=== PATIENT | female | born 1940 | race Caucasian/White ===

== ENCOUNTER 2016-12-04 08:17 | Day surgery (SDC) | payer MEDICARE ==
[~2016-12-04 08:17] MED LIST: Acetaminophen TAB* 325 MG PO PRN; Buffered Lidocaine 1% SYR 3ML* 3 ML/SYR SYRINGE INTRADERM ONE
[2016-12-04] MEDS ORDERED: fentaNYL* 50 MCG/ML 2 ML VIAL (100 MCG VIAL) ONE (09:04)
[2016-12-04] MEDS ORDERED: Midazolam* 1 MG/ML 2 ML VIAL (2 MG) ONE (09:04)
[2016-12-04] MEDS ORDERED: Propofol* 10 MG/ML 20 ML BTL IV PUSH ONE (09:35)
[2016-12-04 10:04] VITALS: BP 147/83
--- NOTE | 2016-12-04 11:07 | OP ---
DATE OF OPERATION/DATE OF DICTATION: 12/04/2016. DATE OF : 1940. SURGEON: Dr. Nathan Aly. CRNP: None. ANESTHESIA: Topical with intravenous sedation. PRE-OP DIAGNOSIS: Cataract, left eye. POST-OP DIAGNOSIS: Cataract, left eye. OPERATIVE PROCEDURE: Phacoemulsification and cataract extraction with posterior chamber intraocular lens implant, left eye. COMPLICATIONS: None. BLOOD LOSS: None. OPERATIVE FINDINGS: The patient was brought to the operating room and received a small amount of in travenous sedation. A drop of Tetracaine was placed in her left eye. She was prepped and draped in the usual sterile fashion for ophthalmic surgery and attention was directed to the left eye where a speculum was placed. A paracentesis was created at the 5 o'clock position and 0.1 cc of 1 percent preservative-free Lidocaine was injected into the anterior chamber followed by DisCoVisc. The eye w as digitally stabilized while a 2.75 mm keratome was used to create a triplanar clear corneal incisi on at the 3 o'clock position. A continuous curvilinear capsulorrhexis was created with a cystotome and Utrata forceps. BSS on a cannula was used to hydrodissect the lens from the capsule. Phacoemul sification was performed in a [id number] technique to create four fragments which were remov ed. Residual cortical material was removed with irrigation and aspiration. DisCoVisc was used to in flate the capsular bag and an AUOOTO 17.5 diopter lens was folded and inserted into the capsular bag . DisCoVisc was removed using irrigation and aspiration. BSS on a cannula was used to hydrate the corneal stroma and seal the wound. At the end of the case the pupil was round and the lens was cent ered. The eye was of normal pressure and the wound was water tight. The speculum was removed and to pical Maxitrol ointment was placed on the surface of the eye. The eye was closed, patched and shiel ded and the patient was sent to the recovery room in stable condition with post operative instructio ns and follow-up appointment given. [id number]/[facility] #: [id number]
[2016-12-04] MEDS ORDERED: Neomycin/Polymy/Dex OPHTH.OIN* 3.5 GM ONE (11:23)
[2016-12-04] MEDS ORDERED: Lidocaine 1% MPF* 2 ML VIAL ONE (11:23)
[2016-12-04] MEDS ORDERED: Flurbiprofen 0.03% OPTH.SOL* 2.5 ML BTL ONE (11:23)
[2016-12-04] MEDS ORDERED: Tropicamide 1% OPTH.SOL* BTL ONE (11:23)
[2016-12-04] MEDS ORDERED: Tetracaine 0.5% OPTH.SOL 4 ML* 1 DROP BTL ONE (11:23)
[2016-12-04] MEDS ORDERED: Cyclopentolate 1% OPTH.SOL* 2 ML BTL ONE (11:23)
[2016-12-04] MEDS ORDERED: Phenylephrine 2.5% OPTH.SOL* 2 ML BTL ONE (11:23)
== END 2016-12-04 10:12 | disposition home or self-care (01) ==
LOC: OREAST 08:17
PROVIDERS: ATTEND Ophthalmology
DX: H25.12 Age-related nuclear cataract, left eye (principal); I10 Essential (primary) hypertension; M35.3 Polymyalgia rheumatica; K21.9 Gastro-esophageal reflux disease without esophagitis; F34.1 Dysthymic disorder
CPT/HCPCS: A9270-GY; J2250; J2704; J3010; V2632

== ENCOUNTER 2017-09-26 11:01 | Emergency (ER) | payer MEDICARE ==
[2017-09-26] MEDS ORDERED: Ondansetron INJ* 2 MG/ML VIAL IV ONE (11:15)
[2017-09-26] MEDS ORDERED: Morphine INJ* 10 MG/ML 1 ML CARPUJECT IV ONE (11:15)
[2017-09-26 11:54] LABS: ABS Basophils 0.1 10^3/ul (0-0.2); ABS Eosinophils 0.2 10^3/ul (0-0.6); ABS Lymphocytes 2.4 10^3/ul (1.0-4.8); ABS Monocytes 0.7 10^3/ul (0-0.8); ABS Neutrophils 7.2 10^3/ul (1.5-7.7); ABS Nucleated RBC 0 10^3/ul; Eosinophil % 1.6 % (0-6); Hematocrit 43 % (35-47); Hemoglobin 14.7 g/dl (12.0-16.0); Lymphocyte % 22.8 % (25-47); Mean Corpuscular HGB Conc 34 g/dl (31-36); Mean Corpuscular Hemoglobin 32 pg (27-31); Mean Corpuscular Volume 94 fL (80-97); Mean Platelet Volume 8 um3 (7.4-10.4); Nucleated Red Blood Cells % 0; Platelet Count 281 10^3/ul (150-450); Red Blood Count 4.57 10^6/ul (4.0-5.4); Red Cell Distribution Width 16 % (10.5-15); White Blood Count 10.6 10^3/ul (3.5-10.8)
[2017-09-26 12:16] LABS: EGFR Non-African American 60.9 (>60)
[2017-09-26] MEDS ORDERED: fentaNYL* 50 MCG/ML 2 ML VIAL (100 MCG VIAL) IV SLOW PU ONE (12:17)
[2017-09-26] MEDS ORDERED: Morphine INJ* 4 MG/ML 1 ML SYRINGE (NEW SYRINGE VERSION) IV ONE (13:33)
--- NOTE | 2017-09-26 13:44 | RAD ---
Indication: Left leg edema. Duplex Doppler sonography of the deep venous system of the left lower extremity deep venous system was performed. Bilaterally the common femoral veins appear patent and compressible. Left proximal greater saphenous vein, proximal deep femoral vein, femoral vein, popliteal vein, posterior tibial veins and peroneal veins appear patent and compressible. IMPRESSION: NO EVIDENCE OF DEEP VENOUS THROMBOSIS IS IDENTIFIED.
[2017-09-26] MEDS ORDERED: Orphenadrine Citrate IV* 30 MG/ML 2 ML VIAL IV ONE (14:18)
[2017-09-26] MEDS ORDERED: Dexamethasone IV* 4 MG/ML 1 ML (4 MG) IV SLOW PU ONE (14:18)
--- NOTE | 2017-09-26 14:20 | RAD ---
Indication: LEFT hip and low back pain. Comparison: July 27, 2014 MRI. Technique: AP and lateral views lumbar sacral spine. Report: Alignment is anatomic. No cortical disruption or trabecular impaction to indicate a vertebral body fracture. Multilevel mild vertebral endplate osteophytosis. Advanced L1-L2 and L5-S1 disc space narrowing without change. The remaining disc spaces demonstrate only mild narrowing. Diffuse facet joint osteoarthritis most marked at the L2-L3 through L5-S1 levels. Unremarkable soft tissue contours. RIGHT upper quadrant surgical clips and aortoiliac vascular calcifications. RIGHT hip prosthesis. LEFT hip osteoarthritis. IMPRESSION: Degenerative spondylosis and facet joint osteoarthritis without gross significant interval change from the July 27, 2014 MRI.
--- NOTE | 2017-09-26 14:27 | RAD ---
Indication: LEFT hip pain. Post RIGHT hip replacement. Comparison: January 23, 2011 pelvis radiograph. Technique: AP pelvis and AP and frog-leg lateral views LEFT hip. Report: The LEFT hip is normally located. Negative for LEFT hip or pelvis fracture or pelvis joint diastases. Severe osteophytosis and advanced axial joint space narrowing of the LEFT hip with associated reactive subchondral sclerosis. Associated partial loss of femoral head sphericity. Unremarkable appearance of the prosthetic RIGHT hip in the AP projection. Unremarkable soft tissue contours. 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
[2017-09-26 16:08] VITALS: BP 155/92
--- NOTE | 2017-09-27 08:22 | ED ---
Louie Fortune Angela, scribed for Kapil Hernandez MD on 09/26/17 at 1110 . Lower Extremity - HPI Summary HPI Summary: This pt is a 77 y/o female presenting to [facility] c/o left hip pain radiating down her left leg for 1 week. Pt denies any trauma, fall, or heavy lifting. Pt additionally reports she has had left thigh swelling and left foot swelling. She rates her pain 9 out of 10 in severity. She states she has had diaphoresis and chills. Denies chest pain, SOB. PMHx includes back surgery (a couple of years ago) to remove a tumor. - History of Current Complaint Chief Complaint: EDExtremityLower Stated Complaint: LT HIP PAIN Time Seen by Provider: 09/26/17 11:08 Hx Obtained From: Patient Mechanism Of Injury: Other - no trauma or injury Onset of Pain: Days Onset/Duration: Still Present Severity Currently: Severe Pain Intensity: 9 Pain Scale Used: 0-10 Numeric Timing: Constant, Lasting Days Location: Radiates To - left hip radiating down left leg Associated Signs And Symptoms: Positive: Swelling - in left thigh and foot, Other - POS: diaphoresis, chills. NEG: chest pain, SOB.. Negative: Fever Aggravating Factor(s): Movement Alleviating Factor(s): Rest - Allergies/Home Medications Allergies/Adverse Reactions: Allergies Allergy/AdvReac Type Severity Reaction Status Date / Time iodine Allergy Intermediate Rash Verified 09/26/17 12:18 niacin Allergy Intermediate Rash Verified 09/26/17 12:18 Penicillins Allergy Intermediate Hives Verified 09/26/17 12:18 povidone-iodine Allergy Intermediate Rash Verified 09/26/17 12:18 [From Betadine] soap [From Betadine] Allergy Intermediate Rash Verified 09/26/17 12:18 Kquoemq-Inz-Knq Reductase AdvReac Intermediate Muscle Ache Verified 09/26/17 12: 18 Inhibitor PMH/Surg Hx/FS Hx/Imm Hx Endocrine/Hematology History: Denies: Hx Diabetes Cardiovascular History: Reports: Hx Hypertension, Hx Rheumatic Fever - childhood , Other Cardiovascular Problems/Disorders - HX STROKE 2007, HX BLOOD CLOT Denies: Hx Congestive Heart Failure, Hx Pacemaker/ICD GI History: Reports: Hx Gall Bladder Disease - removed 2000, Hx Gastroesophageal Reflux Disease - ON MEDS, Hx Ulcer - STOMACH 20+ YEARS AGO History: Denies: Hx Dialysis, Hx Renal Disease Musculoskeletal History: Reports: Hx Arthritis, Hx Back Problems, Other Musculoskeletal History - fibromyalgia Sensory History: Reports: Hx Cataracts, Hx Contacts or Glasses, Hx Hearing Aid - pt left hearing aides at home, Hx Hearing Problem Opthamlomology History: Reports: Hx Cataracts, Hx Contacts or Glasses Neurological History: Reports: Other Neuro Impairments/Disorders - FIBROMYALGIA Psychiatric History: Denies: Hx Anxiety, Hx Depression, Hx Panic Disorder - Cancer History Cancer Type, Location and Year: Left breast Hx Chemotherapy: No Hx Radiation Therapy: Yes - Surgical History Surgery Procedure, Year, and Place: Lsp surgery 04/2014. Left knee replacement. Right hip replacement. Left breast cancer, surgery x2, one lymph node removed. Perforated ulcer. total hysterectomy Hx Anesthesia Reactions: No - Immunization History Date of Tetanus Vaccine: Up to date Date of Influenza Vaccine: Fall 2011 Infectious Disease History: No Infectious Disease History: Denies: Traveled Outside the [place] in Last 30 Days - Family History Known Family History: Positive: Cardiac Disease Family History: Lupus - Social History Alcohol Use: None Alcohol Amount: 2 DRINKS A YEAR Substance Use Type: Reports: None, Prescribed Smoking Status (MU): Never Smoked Tobacco Review of Systems Positive: Chills, Skin Diaphoresis. Negative: Fever Eyes: Negative ENT: Negative Negative: Chest Pain Negative: Shortness Of Breath Gastrointestinal: Negative Musculoskeletal: Other - left hip pain, left leg pain Positive: Edema - left thigh and left foot All Other Systems Reviewed And Are Negative: Yes Physical Exam - Summary Physical Exam Summary: VITAL SIGNS: Reviewed. GENERAL: Patient is a well-developed and nourished female who is lying comfortable in the stretcher. Patient is not in any acute respiratory distress. HEAD AND FACE: No signs of trauma. No ecchymosis, hematomas or skull depressions. No sinus tenderness. EYES: PERRLA, EOMI x 2, No injected conjunctiva, no nystagmus. EARS: Hearing grossly intact. Ear canals and tympanic membranes are within normal limits. MOUTH: Oropharynx within normal limits. NECK: Supple, trachea is midline, no adenopathy, no JVD, no carotid bruit, no c- spine tenderness, neck with full ROM. CHEST: Symmetric, no tenderness at palpation LUNGS: Clear to auscultation bilaterally. No wheezing or crackles. CVS: Regular rate and rhythm, S1 and S2 present, no murmurs or gallops appreciated. ABDOMEN: Soft, non-tender. No signs of distention. No rebound no guarding, and no masses palpated. Bowel sounds are normal. MSK: no edema, no cyanosis or clubbing. Positive paraspinal tenderness in the lumbar spine. Left hip tenderness with decreased ROM. Positive straight left leg test. There is slight swelling. NEURO: Alert and oriented x 3. No acute neurological deficits. Speech is normal and follows commands. SKIN: Dry and warm Triage Information Reviewed: Yes Vital Signs On Initial Exam: Initial Vitals Temp Pulse Resp BP Pulse Ox 97.4 F 91 22 157/96 95 09/26/17 11:02 09/26/17 11:02 09/26/17 11:02 09/26/17 11:02 09/26/17 11:02 Vital Signs Reviewed: Yes Diagnostics - Vital Signs Vital Signs Temp Pulse Resp BP Pulse Ox 09/26/17 11:02 97.4 F 91 22 157/96 95 - Laboratory Result Diagrams: 09/26/17 11:45 09/26/17 11:45 Lab Statement: Any lab studies that have been ordered have been reviewed, and results considered in the medical decision making process. - Radiology Lumbar spine XR Xray Interpretation: No Acute Changes - IMPRESSION: Degenerative spondylosis and facet joint osteoarthritis without gross significant interval change from the July 27, [address] Hernandez has reviewed this radiology report. 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 Dr. Hernandez has reviewed this radiology report. Radiology Interpretation Completed By: Radiologist - Additional Comments Diagnostic Additional Comments: Venous Doppler Study, Left lower extremity, as read by radiologist: IMPRESSION: No evidence of deep venous thrombosis identified. Dr. Hernandez has reviewed this radiology report. Re-Evaluation - Re-Evaluation First Eval Re-Evaluation Time: 15:48 Change: Improved Comment: Pt reports she is feeling much better. Lower Extremity Course/Dx - Course Assessment/Plan: This pt is a 77 y/o female [facility]/o left hip pain radiating down her left leg for 1 week. Pt denies any trauma, fall, or heavy lifting. Pt additionally reports she has had left thigh swelling and left foot swelling. She rates her pain 9 out of 10 in severity. She states she has had diaphoresis and chills. Denies chest pain, SOB. Test results without any significant abnormality. Ultrasound of left lower extremity reveals no evidence of deep venous thrombosis identified. Ultrasound shows no DVT. Lumbar spine XR and left hip/pelvis XR show no fracture or dislocation. Pt was given a couple doses of Morphine, Fentanyl, Decadron, Norflex and her symptoms significant improved. Pt is ambulating with minimal pain, therefore I believe the pt is dealing with sciatica. She will be discharged to home with follow up from her PCP. Pt was given a prescription for [place], Flexeril, and Medrol. Pt is hemodynamically stable, alert and oriented x3. She is instructed to return to the ED for any worsening symptoms. - Diagnoses Provider Diagnoses: Low back pain, Sciatica Discharge - Discharge Plan Condition: Stable Disposition: HOME Prescriptions: Cyclobenzaprine TAB* [Flexeril 10 MG TAB*] 10 mg PO TID PRN #12 tab PRN Reason: Pain HYDROcodone/ACETAMIN 5-325 MG* [[place] 5-325 TAB*] 1 tab PO Q6H PRN #12 tab MDD 4 tabs PRN Reason: Pain methylPREDNISolone TAB* [Medrol TAB*] 4 - 8 mg PO .SEE ZAIRA #1 zaira Patient Education Materials: Sciatica (ED), Acute Low Back Pain (ED) Referrals: Misha Ibrahim MD [Primary Care Provider] - 3 Days Additional Instructions: Please follow up with your primary care provider. RETURN TO THE ED FOR ANY WORSENING SYMPTOMS. The documentation as recorded by the Louie parker Angela accurately reflects the service I personally performed and the decisions made by , Kapil Hernandez MD.
== END 2017-09-26 16:06 | disposition home or self-care (01) ==
LOC: ED 11:01
DX: M54.5 Low back pain (principal); M54.32 Sciatica, left side; M25.552 Pain in left hip; Z86.79 Personal history of other diseases of the circulatory system; Z87.19 Personal history of other diseases of the digestive system
CPT/HCPCS: 36415; 72100; 80053; 84550; 85025; 86140; 96374; 96375; 99285; J1100; J2270; J2360; J2405; J3010

== ENCOUNTER 2018-01-02 07:37 | Inpatient (IN) | payer MEDICARE ==
--- NOTE | 2017-12-27 21:11 | HP ---
HISTORY AND PHYSICAL: DATE OF SURGERY: 01/02/18 DATE OF OFFICE VISIT: 12/25/17 SURGEON: Binta Alicia MD.* (DICTATED BY CHRIS ARDON) PROCEDURE: Left total hip arthroplasty. CHIEF COMPLAINT: Left hip pain. HISTORY OF PRESENT ILLNESS: Ms. Boucher is a 77-year-old female with complaints of left hip pain. She has failed conservative management and elected to proceed with a left total hip arthroplasty. The surgery is scheduled for 01/02/[address] Alicia. PAST MEDICAL HISTORY: Hypertension, GERD, fibromyalgia, history of breast cancer, osteoarthritis, and history of stroke. PAST SURGICAL HISTORY: Bilateral total knee arthroplasties, right total hip arthroplasty, lumpectomy x2, tumor removal from her spine, hysterectomy, and cholecystectomy. CURRENT MEDICATIONS: 1. Verapamil 240 mg daily. 2. Trazodone 50 mg q.h.s. 3. Omeprazole 40 mg daily. 4. Aspirin 81 mg daily. 5. Indapamide 2.5 mg daily. 6. Spironolactone 25 mg 2 tablets every day. 7. Culturelle. 8. Prednisone mg daily. 9. Naproxen 500 mg twice daily as needed. ALLERGIES: PENICILLIN, STATIN, BETADINE, NIACIN, IODINE, and SURGICAL SCRUB. IODINE and SURGICAL SCRUB causes hives. FAMILY HISTORY: Coronary artery disease, hypertension, breast cancer, rheumatoid arthritis, and lupus. SOCIAL HISTORY: She is a 77-year-old female. She lives alone. She does not smoke or use drugs. Uses occasional alcohol. REVIEW OF SYSTEMS: A complete 14-point of review of systems is reviewed with the patient and is positive for GERD and stroke. She has a history of vomiting with anesthesia. Denies history of DVT, PE, hepatitis, or HIV. PHYSICAL EXAMINATION GENERAL: She is a well developed, well nourished, in no acute distress. VITAL SIGNS: She stands 62 inches tall, weighs 210 pounds. Her blood pressure is 148/80 and her heart rate is 90. HEENT: Normocephalic, atraumatic. NECK: Supple. No palpable lymph nodes. PULMONARY: The lungs are clear to auscultation bilaterally. CARDIO: Regular rate and rhythm. Strong S1, S2. ABDOMEN: Soft, nontender, nondistended. NEUROLOGIC: She is alert and oriented x3. Cranial nerves II through XII are intact. MUSCULOSKELETAL: Left lower extremity, the skin is intact. There are no open wounds or abrasions. She walks with an antalgic-type gait favoring her left hip. She has decreased internal and external rotation of the left hip. 2+ dorsalis pedis pulses. Intact sensation in her lower extremities. Muscle group strengths are intact at 5/5. ASSESSMENT AND PLAN: Ms. Boucher is a 77-year-old female with endstage osteoarthritis of the left hip. She has failed conservative management and elected to proceed with a left total hip arthroplasty. Her surgery is scheduled for 01/02/[address] Alicia discussed the risks and benefits of the surgery at today's visit and all of her questions were answered. She will follow up with Dr. Alicia in 2 weeks after the surgery. CHRIS ARDON [id number]/[facility] #: [id number] [facility]
[~2018-01-02 07:37] MED LIST changes: -Acetaminophen TAB* 325 MG PO PRN; +Buffered Lidocaine 0.9% SYRIN* 5 ML/SYR SYRINGE INTRADERM ONE; -Buffered Lidocaine 1% SYR 3ML* 3 ML/SYR SYRINGE INTRADERM ONE
--- OUTSIDE RECORDS SUMMARY | 2018-01-02 07:44 | XMS REPORT ---
:1940 External Reference #:[id number] Author Organization [facility] Address [address] [address] Phone [phone] Care Team Providers Name Role Phone Misha Ibrahim MD Primary Care Physician Unavailable Payers Type Date Identification Payment Subscriber Numbers Provider Health Maintenance Effective: Policy Number: Medicare Van Vasquez (O) 07/22/2012 [id number] o Group Number: [id number] [address] [address] PayID: [id number] [place] [address] Problems Date Description Provider Status Onset: 07/07/2014 Aftercare Following [facility] Nikita Stevens M.D. Active Musculoskeletal Sys, NEC Onset: 07/19/2014 Thoracic and lumbosacral neuritis Nikita Stevens M.D. Active Onset: 06/21/2015 Essential hypertension Karly Young M.D. Active Onset: 06/21/2015 Pulmonary valve disorder Karly Young M.D. Active Onset: 07/18/2015 Chronic diastolic heart failure Karly Young M.D. Active Onset: 07/18/2015 Polymyalgia rheumatica Karly Young M.D. Active Onset: 11/08/2015 Dyspnea Karly Young M.D. Active Onset: 11/08/2015 Persistent circulation Karly Young M.D. 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 Cigarette Use Never Smoked Cigarettes ETOH Use Rarely consumes alcohol very very rare Smoking Patient has never smoked Recreational Drug Use Denies Drug Use Daily Caffeine Consumes on average 1 cup of regular coffee per day Daily Caffeine Consumes on average 16oz per day Exercise Type/Frequency Exercises sporadically Allergies, Adverse Reactions, Alerts Date Description Reaction Status Severity Comments 12/29/2013 Penicillin Urticaria active 12/29/2013 Statins muscle aches active 12/29/2013 Betadine Urticaria active 12/29/2013 Niacin Urticaria active 06/07/2015 Iodine active 11/25/2017 Surgical Scrub active Medications Medication Date Status Form Strength Qnty SIG Indications Ordering Provider Verapamil HCL ER 10/29/ Active Caps ER 240mg 1 by mouth Unknown 2015 24HR every day Trazodone HCL / Active Tablets 50mg 30tabs 1 tablet Unknown 0000 at bedtime as needed Omeprazole / Active Capsules 40mg 90caps 1 by mouth Unknown 0000 DR every day Aspir-81 / Active Tablets DR 81mg 1 by mouth Unknown 0000 every day Indapamide / Active Tablets 2.5mg 150tab 1 tab by Karly 0000 s mouth Hannah, every day M.D. ( med change decrease per Dr. Ibrahim, started 12/16/15) Spironolactone / Active Tablets 25mg 180tab 2 tablets Karly 0000 s by mouth Peñuelas, every day M.D. Culturelle / Active Capsules once a day Unknown 0000 15 billion cells per capsule Prednisone / Active Tablets 7mg once a day Unknown 0000 Naproxen / Active Tablets 500mg 1 tablet Unknown 0000 with food by mouth twice a day Prednisone 11/10/ Hx Tablets 10mg 45tabs take 5 Karly 2015 - tabs night Peñuelas, 12/05/ prior to M.D. 2016 CT scan, 5 tabs the moring of the CT scan and 5 tabs on arrival to the hospital then as directed Verapamil HCL ER 07/18/ Hx Caps ER 180mg 90caps 1 by mouth Karly 2015 - 24HR every day Hannah, 11/10/ M.D. 2016 Indapamide 07/18/ Hx Tablets 1.25mg 90tabs 1 tab PO q I50.32 Karly 2014 - day with Hannah, 11/07/ 2.5 mg M.D. 2015 tablet Zofran Odt 03/26/ Hx Tablets 4mg 40tabs every 4 to Dirk 2014 - Dispers 6 hours as Elizabeth, 11/06/ needed M.D. 2015 nausea. Pt Not Using. Coumadin 03/25/ Hx Tablets 2mg 60tabs take 1-5 Freddie 2014 - tablets as Elizabeth, 06/20/ directed M.D. 2014 Percocet 03/25/ Hx Tablets 5-325mg 60tabs 1-2 by k 2014 - mouth Elizabeth, 06/20/ every 4 to M.D. 2014 6 hours as needed pain Prednisone / Hx Tablets 5mg 70tabs 1 po bid Unknown 0000 - 2013 Naproxen / Hx Tablets 500mg 30tabs 1 by mouth Unknown 0000 - twice a 01/30/ day as 2015 needed Verapamil HCL ER / Hx Tablets ER 240mg 1 by mouth Unknown 0000 - every day 2014 Aldactone 00/ Hx Tablets 25mg 1 by mouth Unknown 0000 - every day 2014 Cymbalta / Hx Caps DR 30mg 30caps 1 by mouth Unknown 0000 - Part every day 2013 Hydrocodone-Acet / Hx Tablets 5-325mg 1 bid prn Unknown aminophen 0000 - 2013 Aldactone 00/ Hx Tablets 25mg 1 by mouth Unknown 0000 - every day 2015 Medications Administered in Office Medication Date Status Form Strength Qnty SIG Indications Ordering Provider Inj, 06/23/ Administered Injection Bryn Arora Regadenoson, 0.1 2014 Brand, MG Zack.Maite Aminophylline 06/23/ Administered Injection Bryn Arora 2014 Khai Capone Technetium TC 06/23/ Administered Injection Bryn Arora 99M Tetrofosmin, 2014 Brand, Per Unit Dose Up M.D. To 40 Millicuries Triamcinolone 12/29/ Administered Injection Ambrosio (Kenalog) Kassidy Martinez M.D. Vital Signs Date Vital Result Comment 12/25/2017 Height 62.75 inches 5'2.75" Weight 210.00 lb Heart Rate 90 /min BP Systolic Sitting 148 mmHg BP Diastolic Sitting 80 mmHg Respiratory Rate 16 /min Body Temperature 98.0 F Pain Level 5 BMI (Body Mass Index) 37.5 kg/m2 11/25/2017 Height 62.75 inches 5'2.75" Weight 208.00 lb Heart Rate 88 /min BP Systolic 144 mmHg BP Diastolic 84 mmHg Pain Level 8 BMI (Body Mass Index) 37.1 kg/m2 05/20/2017 Height 63.5 inches 5'3.50" Weight 214.00 lb BP Systolic 116 mmHg BP Diastolic 78 mmHg Respiratory Rate 20 /min Body Temperature 98.1 F Pain Level 5 BMI (Body Mass Index) 37.3 kg/m2 12/22/2015 Height 63.5 inches 5'3.50" Weight 214.00 lb with shoes Heart Rate 90 /min BP Systolic Sitting 120 mmHg Ra lg cuff BP Diastolic Sitting 86 mmHg Ra lg cuff Respiratory Rate 17 /min BMI (Body Mass Index) 37.3 kg/m2 Ejection Fraction 55-60% date 11/28/15 ECHO 12/07/2015 Height 63.5 inches 5'3.50" Weight 213.00 lb with shoes Heart Rate 92 /min BP Systolic Sitting 122 mmHg Ra lrg cuff BP Diastolic Sitting 80 mmHg Ra lrg cuff BP Systolic Standing 126 mmHg Ra lrg cuff BP Diastolic Standing 80 mmHg Ra lrg cuff BMI (Body Mass Index) 37.1 kg/m2 Ejection Fraction 55% - 60% 11/28/15 echo 11/17/2015 Height 63.5 inches 5'3.50" Weight 213.00 lb h shoes Heart Rate 78 /min BP Systolic Sitting 142 mmHg Ra lrg cuff BP Diastolic Sitting 86 mmHg Ra lrg cuff BP Systolic Standing 140 mmHg Ra lrg cuff BP Diastolic Standing 88 mmHg Ra lrg cuff Respiratory Rate 18 /min BMI (Body Mass Index) 37.1 kg/m2 Ejection Fraction 45-50% 07/06/15 11/08/2015 Height 63.5 inches 5'3.50" Weight 214.31 lb with shoes Heart Rate 66 /min 82 at rest, 104 w/ exercise BP Systolic Sitting 138 mmHg Ra lrg cuff BP Diastolic Sitting 82 mmHg Ra lrg cuff BP Systolic Standing 142 mmHg Ra lrg cuff BP Diastolic Standing 88 mmHg Ra lrg cuff Respiratory Rate 16 /min O2 % BldC Oximetry 93 % on Ra at rest, 95% on Ra w/ exercise BMI (Body Mass Index) 37.4 kg/m2 Ejection Fraction focused 07/06/15 07/18/2015 Height 63.5 inches 5'3.50" Weight 208.00 lb with shoes Heart Rate 82 /min BP Systolic Sitting 132 mmHg Ra, reg cuff BP Diastolic Sitting 84 mmHg Ra, reg cuff BP Systolic Standing 130 mmHg Ra BP Diastolic Standing 84 mmHg Ra Respiratory Rate 16 /min BMI (Body Mass Index) 36.3 kg/m2 Ejection Fraction 45-50% 05/06/15 06/21/2015 Height 63.5 inches 5'3.50" Weight 208.31 lb with shoes Heart Rate 84 /min BP Systolic Sitting 132 mmHg Ra, Lg cuff BP Diastolic Sitting 84 mmHg Ra, Lg cuff BP Systolic Standing 126 mmHg Ra BP Diastolic Standing 86 mmHg Ra Respiratory Rate 16 /min BMI (Body Mass Index) 36.3 kg/m2 Ejection Fraction 45-50% 05/06/15 04/27/2015 Height 96.8 inches 8'0.80" Weight 197.00 lb Body Temperature 96.8 F BMI (Body Mass Index) 14.8 kg/m2 03/02/2015 Height 63.5 inches 5'3.50" Weight 201.00 lb Heart Rate 100 /min BP Systolic Sitting 152 mmHg BP Diastolic Sitting 98 mmHg Respiratory Rate 18 /min Pain Level 6 BMI (Body Mass Index) 35.0 kg/m2 08/04/2014 Height 63.5 inches 5'3.50" Weight 201.00 lb Heart Rate 76 /min BP Systolic Sitting 124 mmHg BP Diastolic Sitting 80 mmHg Pain Level 6 back BMI (Body Mass Index) 35.0 kg/m2 07/19/2014 Height 63.5 inches 5'3.50" Weight 202.00 lb Heart Rate 76 /min BP Systolic Sitting 122 mmHg BP Diastolic Sitting 80 mmHg Pain Level 5 back BMI (Body Mass Index) 35.2 kg/m2 07/07/2014 Height 63.5 inches 5'3.50" Weight 202.00 lb Heart Rate 66 /min BP Systolic Sitting 146 mmHg BP Diastolic Sitting 92 mmHg Pain Level 4 back BMI (Body Mass Index) 35.2 kg/m2 05/27/2014 Height 63.5 inches 5'3.50" Weight 199.00 lb Heart Rate 80 /min BP Systolic Sitting 110 mmHg BP Diastolic Sitting 80 mmHg Pain Level 2 back BMI (Body Mass Index) 34.7 kg/m2 05/06/2014 Height 63.5 inches 5'3.50" Weight 196.00 lb Heart Rate 84 /min BP Systolic Sitting 130 mmHg BP Diastolic Sitting 86 mmHg Body Temperature 98.1 F BMI (Body Mass Index) 34.2 kg/m2 04/22/2014 Height 63.5 inches 5'3.50" Weight 200.00 lb Heart Rate 72 /min BP Systolic Sitting 170 mmHg BP Diastolic Sitting 98 mmHg Pain Level 9 back& r leg BMI (Body Mass Index) 34.9 kg/m2 02/01/2014 Height 63.5 inches 5'3.50" Weight 200.50 lb Heart Rate 74 /min BP Systolic Sitting 140 mmHg BP Diastolic Sitting 80 mmHg BMI (Body Mass Index) 35.0 kg/m2 12/29/2013 Height 63.5 inches 5'3.50" Weight 199.00 lb Heart Rate 82 /min BP Systolic Sitting 138 mmHg BP Diastolic Sitting 80 mmHg BMI (Body Mass Index) 34.7 kg/m2 Results Test Date Test Result H/L Range Note Arterial Blood Gas 12/12/2015 PH Arterial 7.47 High 7.35-7.45 1 Pco2 Arterial 39 mmHg 35-45 1 Po2 Arterial 36 mmHg Low 80-100 1, 2 O2 Saturation Arterial 75.7 % Low 95-98 1 Base Excess Arterial 4.5 High -2.0-2.0 1, 3 Hco3 Arterial 27.8 mmol/L 1 Arterial Blood Gas 12/12/2015 PH Arterial 7.44 7.35-7.45 Pco2 Arterial 42 mmHg 35-45 Po2 Arterial 38 mmHg Low 80-100 4 O2 Saturation Arterial 78.2 % Low 95-98 Base Excess Arterial 3.9 High -2.0-2.0 5 Hco3 Arterial 27.3 mmol/L Arterial Blood Gas 12/12/2015 PH Arterial 7.51 High 7.35-7.45 6 Pco2 Arterial 36 mmHg 35-45 6 Po2 Arterial 77 mmHg Low 80-100 6 O2 Saturation Arterial 97.3 % 95-98 6 Base Excess Arterial 5.6 High -2.0-2.0 6, 7 Hco3 Arterial 29.2 mmol/L 6 Inr/Protime 12/07/2015 Inr 0.99 0.89-1.11 Laboratory test finding 12/07/2015 Partial Thrombo Time 32.9 seconds 26.0 -36.3 PTT CBC Auto Diff 12/07/2015 White Blood Count 12.9 10^3/uL High 3.5-10.8 Red Blood Count 4.64 10^6/uL 4.0-5.4 Hemoglobin 14.2 g/dL 12.0-16.0 Hematocrit 43 % 35-47 Mean Corpuscular Volume 93 fL 80-97 Mean Corpuscular Hemoglobin 31 pg 27-31 Mean Corpuscular HGB Conc 33 g/dL 31-36 Red Cell Distribution Width 17 % High 10.5-15 Platelet Count 313 10^3/uL 150-450 Mean Platelet Volume 8 um3 7.4-10.4 Abs Neutrophils 11.3 10^3/uL High 1.5-7.7 Abs Lymphocytes 1.0 10^3/uL 1.0-4.8 Abs Monocytes 0.5 10^3/uL 0-0.8 Abs Eosinophils 0 10^3/uL 0-0.6 Abs Basophils 0.1 10^3/uL 0-0.2 Abs Nucleated RBC 0.01 10^3/uL Granulocyte % 87.7 % High 38-83 Lymphocyte % 7.9 % Low 25-47 Monocyte % 3.7 % 1-9 Eosinophil % 0.1 % 0-6 Basophil % 0.6 % 0-2 Nucleated Red Blood Cells % 0.1 Comp Metabolic Panel 11/16/2015 Sodium 137 mmol/L 133-145 Potassium 3.9 mmol/L 3.5-5.0 Chloride 97 mmol/L Low 101-111 Co2 Carbon Dioxide 29 mmol/L 22-32 Anion Gap 11 mmol/L 2-11 Glucose 146 mg/dL High 70-100 Blood Urea Nitrogen 23 mg/dL 6-24 Creatinine 0.83 mg/dL 0.51-0.95 BUN/Creatinine Ratio 27.7 High 8-20 Calcium 10.7 mg/dL High 8.6-10.3 Total Protein 7.2 g/dL 6.4-8.9 Albumin 4.7 g/dL 3.2-5.2 Globulin 2.5 g/dL 2-4 Albumin/Globulin Ratio 1.9 1-3 Total Bilirubin 0.50 mg/dL 0.2-1.0 Alkaline Phosphatase 82 U/L 34-104 Alt 11 U/L 7-52 Ast 12 U/L Low 13-39 Egfr Non- 67.2 >60 Egfr 86.4 >60 8 Laboratory test 11/16/2015 D Dimer Quantitative 625 ng/mL High Less Than 230 9 finding B-Type Natriuretic Peptide BNP 19 pg/mL 10 Laboratory test finding 11/14/2015 B-Type Natriuretic Peptide <pending&gt ; BNP D Dimer Quantitative <pending> CBC No Diff 03/15/2015 White Blood Count 14.1 10^3/uL High 4.8-10.8 11 Red Blood Count 4.68 10^6/uL 4.0-5.4 11 Hemoglobin 15.1 g/dL 12.0-16.0 11 Hematocrit 46 % 35-47 11 Mean Corpuscular Volume 98 fL High 80-97 11 Mean Corpuscular Hemoglobin 32 pg High 27-31 11 Mean Corpuscular HGB Conc 33 g/dL 31-36 11 Red Cell Distribution Width 14 % 10.5-15 11 Platelet Count 318 10^3/uL 150-450 11 Mean Platelet Volume 7 um3 Low 7.4-10.4 11 Urinalysis Profile 03/15/2015 Urine Color Yellow 11 Urine Appearance Clear 11 Urine Specific [place] 1.021 1.010-1.030 11 Urine pH 5.0 5-9 11 Urine Urobilinogen Negative Negative 11 Urine Ketones Negative Negative 11 Urine Protein Negative Negative 11 Urine Leukocytes Negative Negative 11 Urine Blood Negative Negative 11 Urine Nitrite Negative Negative 11 Urine Bilirubin Negative Negative 11 Urine Glucose Negative Negative 11 Inr/Protime 03/15/2015 Inr 0.97 0.78-1.07 11 Laboratory test finding 03/15/2015 Partial Thrombo 33.8 seconds 26.0- 36.3 11, 12 Time PTT Basic Metabolic Panel 03/15/2015 Sodium 139 mmol/L 133-145 11 Potassium 3.6 mmol/L 3.5-5.0 11 Chloride 96 mmol/L Low 101-111 11 Co2 Carbon Dioxide 32 mmol/L 22-32 11 Anion Gap 11 mmol/L 2-11 11 Glucose 94 mg/dL 70-100 11 Blood Urea Nitrogen 20 mg/dL 6-24 11 Creatinine 0.83 mg/dL 0.51-0.95 11 BUN/Creatinine Ratio 24.1 High 8-20 11 Calcium 10.2 mg/dL 8.6-10.3 11 Egfr Non- 67.4 >60 11 Egfr 86.7 >60 11, 13 Type & Screen 03/15/2015 Patient Blood Type O Positive 11 Antibody Screen NEGATIVE 11 Laboratory test 03/15/2015 Urine Culture And SEE RESULT 11, 14 finding Sensitivities BELOW Creatinine 07/27/2014 Creatinine 0.83 mg/dL 0.51-0.95 Egfr Non- 67.6 >60 Egfr 86.9 >60 15 Laboratory test finding 07/27/2014 Blood Urea Nitrogen 21 mg/dL 6-24 Laboratory test finding 07/09/2014 Erythrocyte Sed Rate 25 mm/Hr 0-40 CBC Auto Diff 07/09/2014 White Blood Count 7.9 10^3/uL 4.8-10.8 Red Blood Count 4.71 10^6/uL 4.0-5.4 Hemoglobin 15.1 g/dL 12.0-16.0 Hematocrit 45 % 35-47 Mean Corpuscular Volume 96 fL 80-97 Mean Corpuscular Hemoglobin 32 pg High 27-31 Mean Corpuscular HGB Conc 33 g/dL 31-36 Red Cell Distribution Width 14 % 10.5-15 Platelet Count 302 10^3/uL 150-450 Mean Platelet Volume 8 um3 7.4-10.4 Abs Neutrophils 5.0 10^3/uL 1.5-7.7 Abs Lymphocytes 1.9 10^3/uL 1.0-4.8 Abs Monocytes 0.6 10^3/uL 0-0.8 Abs Eosinophils 0.2 10^3/uL 0-0.6 Abs Basophils 0.1 10^3/uL 0-0.2 Abs Nucleated RBC 0 10^3/uL Granulocyte % 63.4 % 38-83 Lymphocyte % 24.5 % Low 25-47 Monocyte % 7.9 % 1-9 Eosinophil % 3.1 % 0-6 Basophil % 1.1 % 0-2 Nucleated Red Blood Cells % 0 Basic Metabolic Panel 04/26/2014 Sodium 132 mmol/L Low 133-145 Potassium 4.3 mmol/L 3.7-5.6 Chloride 95 mmol/L Low 101-111 Co2 Carbon Dioxide 31 mmol/L 22-32 Anion Gap 6 mmol/L 2-11 Glucose 102 mg/dL High 70-100 Blood Urea Nitrogen 28 mg/dL High 6-24 Creatinine 0.79 mg/dL 0.51-0.95 BUN/Creatinine Ratio 35.4 High 8-20 Calcium 9.8 mg/dL 8.6-10.3 Egfr Non- 71.5 >60 Egfr 92.0 >60 16 CBC No Diff 04/26/2014 White Blood Count 11.6 10^3/uL High 4.8-10.8 Red Blood Count 4.39 10^6/uL 4.0-5.4 Hemoglobin 14.4 g/dL 12.0-16.0 Hematocrit 43 % 35-47 Mean Corpuscular Volume 97 fL 80-97 Mean Corpuscular Hemoglobin 33 pg High 27-31 Mean Corpuscular HGB Conc 34 g/dL 31-36 Red Cell Distribution Width 14 % 10.5-15 Platelet Count 267 10^3/uL 150-450 Mean Platelet Volume 7 um3 Low 7.4-10.4 Type And Screen (Pre-Adm) 01/12/2011 Patient Blood Type O POSITIVE 17 Antibody Screen NEGATIVE 17 Specimen Discard Date 01/26/2011 17, 18 Urinalysis 01/12/2011 Ua Color YELLOW Yellow 17 Appearance-Urine CLEAR Clear 17 Specific [place]-Ur 1.008 Low 1.010-1.030 17 Esterase-Urine NEGATIVE Negative 17 Nitrite NEGATIVE Negative 17 Hktovsresjgj-Gk-HEI NEGATIVE Negative 17 Protein-Urine NEGATIVE Negative 17 PH-Urine 6.0 5-9 17 Blood-Urine NEGATIVE Negative 17 Ketones-Urine NEGATIVE Negative 17 Bilirubin-Ur NEGATIVE Negative 17 Glucose-Urine NEGATIVE Negative 17 Basic Metabolic Panel 01/12/2011 Sodium 138 mmol/L 135-145 17 Potassium 4.0 mmol/L 3.5-5.0 17 Chloride 99 mmol/L Low 101-111 17 Co2 (Carbon Dioxide) 28.0 mmol/L 22-32 17 Anion Gap 11.0 mmol/L 2-11 17, 19 Glucose 90 mg/dL 70-100 17 BUN 18 mg/dL 6-24 17 Creatinine 0.79 mg/dL 0.50-1.40 17 One Over Creatinine 1.20 17 BUN/Creatinine Ratio 22.8 High 8-20 17 Calcium 10.5 mg/dL High 8.1-9.9 17 eGFR Non- 72.2 > 60 17 eGFR 92.8 > 60 17, 20 Laboratory test finding 01/12/2011 PTT (Aptt) 33.5 25.15-38.53 17 Protime 01/12/2011 Inr 1.02 0.82-1.17 17, 21 Protime 12.1 SEC 10.2-14.8 17, 22 CBC Auto Diff 01/12/2011 White Blood Count 11.8 CUMM High 4.8-10.8 17 Red Cell Count 4.58 CUMM 4.2-5.4 17 Hemoglobin 14.7 g/dL 12.0-16.0 17 Hematocrit 44 % 35-47 17 Mean Corpuscular Volume 96 um3 79-97 17 Mean Corpuscular Hemoglob 32 pg High 27-31 17 Mean Corpuscular HGB [place]one 33 g/dL 32-36 17 Redcell Distribution WDTH 14 % 10.5-15 17 Platelet Count 360 CUMM 150-450 17 Mean Platelet Volume 7.7 um3 7.4-10.4 17 Gran % 69.4 % 38-83 17 Lymph % 24.0 % Low 25-47 17 Mononuclear % 5.2 % 1-9 17 Eosinophil % 0.8 % 0-6 17 Basophil % 0.6 % 0-2 17 Abs Lymphs 2.8 1.0-4.8 17 Abs Mononuclear 0.6 0-0.8 17 Absolute Neutrophil Count 8.2 High 1.5-7.7 17 Abs Eosinophils 0.1 0-0.6 17 Abs Basophils 0.1 0-0.2 17 1 Comment: AORTA 2 Verbal to [id number] by [email or web address] at 1204 on 12/12/15. Results read back accurately. 3 Reference ranges based on room air. 4 Verbal to [id number] by [email or web address] at 1217 on 12/12/15. Results read back accurately. 5 Reference ranges based on room air. 6 AO 7 Reference ranges based on room air. 8 Because ethnic data is not always readily available, this report includes an eGFR for both -Americans and non- Americans. The National Kidney Disease Education Program (NKDEP) does not endorse the use of the MDRD equation for patients that are not between the ages of 18 and 70, are , have extremes of body size, muscle mass, or nutritional status, or are non- or non-. According to the National Kidney Foundation, irrespective of diagnosis, the stage of the disease is based on the level of kidney function: Stage Description GFR(mL/min/1.73 m(2)) 1 Kidney damage with normal or decreased GFR 90 2 Kidney damage with mild decrease in GFR 60-89 3 Moderate decrease in GFR 30-59 4 Severe decrease in GFR 15-29 5 Kidney failure <15 (or dialysis) 9 Please note: The following may produce a false positive D Dimer test: - Rheumatoid factor greater than 60 IU/ml - Plasma hemoglobin greater than 0.05 gm/dl - Bilirubin greater than 50 mg/dl - Lipids greater than 1000 mg/dl - FDP greater than 20 ug/ml 10 >100 to <200 pg/mL: likely compensated congestive heart failure (CHF) 200 to 400 pg/mL: likely moderate CHF >400 pg/mL: likely moderate to severe CHF 11 AA 03/22/15 12 AA 03/22/15 13 Because ethnic data is not always readily available, this report includes an eGFR for both -Americans and non- Americans. The National Kidney Disease Education Program (NKDEP) does not endorse the use of the MDRD equation for patients that are not between the ages of 18 and 70, are , have extremes of body size, muscle mass, or nutritional status, or are non- or non-. According to the National Kidney Foundation, irrespective of diagnosis, the stage of the disease is based on the level of kidney function: Stage Description GFR(mL/min/1.73 m(2)) 1 Kidney damage with normal or decreased GFR 90 2 Kidney damage with mild decrease in GFR 60-89 3 Moderate decrease in GFR 30-59 4 Severe decrease in GFR 15-29 5 Kidney failure <15 (or dialysis) 14 SEE RESULT BELOW Name: ZINA BOUCHER : [address]: Freddie Johnson MD Acct: [id number] Unit: [id number] AGE: 74 Location: [facility] Re03/15/15 SEX: F Status: REG REF SPEC: [id number] ZHANE: 03/15/15-[address]: Freddie Johnson MD REQ: [id number] RECD: 03/15/15 STATUS: LUCILLE KRUGER DR: Misha Ibrahim MD _ SOURCE: URINE SPDESC: ORDERED: Urine Culture Procedure Result Verified Site Urine Culture Final 03/17/15- 1100 ML Organism 1 NORMAL ANDRES [place] Count 25-50,000 (Moderate) CFU/ML * ML - MAIN LAB (PSC1) . END OF REPORT * ML=Testing performed at Main Lab DEPARTMENT OF PATHOLOGY, [address] [place] [address] Fabian Rooney M.D. Director [facility] # [id number] 15 Because ethnic data is not always readily available, this report includes an eGFR for both -Americans and non- Americans. The National Kidney Disease Education Program (NKDEP) does not endorse the use of the MDRD equation for patients that are not between the ages of 18 and 70, are , have extremes of body size, muscle mass, or nutritional status, or are non- or non-. According to the National Kidney Foundation, irrespective of diagnosis, the stage of the disease is based on the level of kidney function: Stage Description GFR(mL/min/1.73 m(2)) 1 Kidney damage with normal or decreased GFR 90 2 Kidney damage with mild decrease in GFR 60-89 3 Moderate decrease in GFR 30-59 4 Severe decrease in GFR 15-29 5 Kidney failure <15 (or dialysis) 16 Because ethnic data is not always readily available, this report includes an eGFR for both -Americans and non- Americans. The National Kidney Disease Education Program (NKDEP) does not endorse the use of the MDRD equation for patients that are not between the ages of 18 and 70, are , have extremes of body size, muscle mass, or nutritional status, or are non- or non-. According to the National Kidney Foundation, irrespective of diagnosis, the stage of the disease is based on the level of kidney function: Stage Description GFR(mL/min/1.73 m(2)) 1 Kidney damage with normal or decreased GFR 90 2 Kidney damage with mild decrease in GFR 60-89 3 Moderate decrease in GFR 30-59 4 Severe decrease in GFR 15-29 5 Kidney failure <15 (or dialysis) 17 AA 01/23/11 18 PREADMISSION TESTING SAMPLES FOR BLOOD BANK WILL BE HELD FOR 14 DAYS FROM THE DATE OF COLLECTION *IF* THE FOLLOWING CRITERIA ARE MET: 1) THE PATIENT HAS *NOT* BEEN IN THE LAST 3 MONTHS. 2) THE PATIENT HAS *NOT* BEEN TRANSFUSED IN THE LAST 3 MONTHS. PREADMISSION TESTING SAMPLES WILL *NOT* BE HELD FOR 14 DAYS FROM PATIENTS WHO IN THE LAST 3 MONTHS: 1) HAVE BEEN 2) HAVE BEEN TRANSFUSED THESE PATIENTS *MUST* BE COLLECTED WITHIN 3 DAYS OF THE SURGERY DATE. 19 Anion gap measurement may be of limited value in the presence of any alkalosis, especially in a combined acid base disorder. . 20 Because ethnic data is not always readily available, this report includes an eGFR for both -Americans and non- Americans. The National Kidney Disease Education Program (NKDEP) does not endorse the use of the MDRD equation for patients that are not between the ages of 18 and 70, are , have extremes of body size, muscle mass, or nutritional status, or are non- or non-. According to the National Kidney Foundation, irrespective of diagnosis, the stage of the disease is based on the level of kidney function: Stage Description GFR(mL/min/1.73 m(2)) 1 Kidney damage with normal or decreased GFR 90 2 Kidney damage with mild decrease in GFR 60-89 3 Moderate decrease in GFR 30-59 4 Severe decrease in GFR 15-29 5 Kidney failure <15 (or dialysis) 21 Recommended INR for Patients on Oral Anticoagulants Prophylaxis 2.0 - 3.0 Treatment of thrombosis 2.0 - 3.0 Prevention of embolism 2.0 - 3.0 Prevention of embolism from prosthetic heart valves 2.5 - 3.5 22 DIAGNOSIS,TREATMENT,AND THERAPY MUST BE BASED ON THE INR VALUE ALONE. Procedures Date CPT Code Description Status 12/12/2015 17963 RT & lt Cath W/Injx HRT Art&L Ventr Img S&I Completed 12/07/2015 93706 EKG Tracing & Interpretation Completed 11/28/2015 50673 ECHO Transthoracic, Real-Time 2D With Doppler And Color Completed Flow 07/06/2015 00294 Echocardiogram, Limited Study Completed 06/23/2015 78996 Stress Test Completed 06/23/2015 51595 Myocardial Perfusion Imaging Tomographic (Spect) Completed Multiple Studies 06/21/2015 19945 EKG Tracing & Interpretation Completed 05/06/2015 08679 ECHO Transthorasic Realtime 2D W Doppler & Color Completed Flow Hosp 03/22/2015 62903 TKR Total Knee Replacement Completed 03/22/2015 42862 TKR Total Knee Replacement Completed 03/15/2015 01048 EKG, Interpretation Only Completed 04/27/2014 61936 Use Of Operating Microscope Completed 04/27/2014 12565 Laminectomy;For Intraspinal Lesion/Lumbar Completed 12/29/2013 58602 Inject/Drain Joint/Bursa Major Completed 03/18/2013 32491 Rad Exam; Pelvis Completed 03/18/2013 33513 Rad Exam; Knee, Ap&L Completed 03/18/2013 37964 Xray Knee 3 Views Completed 10/03/2011 23897 Rad Exam; Hip Unilat Completed 10/03/2011 36915 Rad Exam; Pelvis Completed 03/12/2011 71216 Rad Exam; Hip Unilat Completed 03/12/2011 31593 Rad Exam; Pelvis Completed 01/23/2011 10194 THR Total Hip Replacement Completed 01/23/2011 15683 THR Total Hip Replacement Completed 11/06/2010 73903 Rad Exam; Pelvis Completed 11/06/2010 17286 Rad Exam; Hip Unilat Completed 11/06/2010 23087 Rad Exam; Knee, Ap&L Completed 11/06/2010 41847 Xray Knee 3 Views Completed 03/08/2010 98822 Rad Exam; Knee, Ap&L Completed 11/28/2009 14006 Xray Knee 3 Views Completed 11/28/2009 72604 Rad Exam; Knee, Ap&L Completed 10/25/2009 43055 TKR Total Knee Replacement Completed 10/25/2009 10361 TKR Total Knee Replacement Completed 07/20/2009 31794 Rad Exam; Knee Comp Completed Encounters Type Date Location Provider CPT E/M Dx Office Visit 11/25/2017 [facility] Alicia M.D. 96763 M16.12 1:30p Lamin M25.552 Office Visit 05/20/2017 2:00p [facility] Johnson M.D. 91611 Z96.652 CPranay M70.862 Office Visit 12/22/2015 12:15p [facility] Bryn Capone, 27355 R06.02 Byron Ridley I37.1 Office Visit 12/07/2015 1:15p [facility] Karly Young M.D. 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 71195 R06.02 Water Tanker Driver I50.32 M35.3 P29.3 I37.1 Office Visit 07/18/2015 11:30a [facility] Young M.D. 58621 I50.32 Water Tanker Driver I37.8 M35.3 R06.02 Office Visit 06/21/2015 2:00p [facility] Young M.D. 68914 R06.02 Water Tanker Driver I10 I37.8 I42.9 P29.3 R94.31 Office Visit 05/07/2015 11:00a [facility] Iwona Adrian, 24310 R07.9 Hospitalists D.ODaniel R06.02 I10 K21.9 Office Visit 05/05/2015 10:59a [facility] [place], [address] R07.2 Assoc,pc Hospitalists Khai R06.02 I10 K21.9 Office Visit 03/25/2015 2:59p [facility] Patti Hernandez, N.P. 00101 725 Hospitalists 401.9 V12.54 V43.65 Office Visit 03/24/2015 2:58p [facility] Patti Hernandez N.P. 16627 725 Hospitalists 401.9 V12.54 V43.65 Office Visit 03/23/2015 2:58p [facility], Sariah Herring, MEDICAL CLERICAL ASSISTANT 88892 725 Hospitalists 401.9 V43.65 V12.54 Office Visit 03/22/2015 2:56p [facility], Kirstenrolando Fernandes, 27043 725 Hospitalists N.P. 715.96 401.9 V12.54 V43.65 Office Visit 03/02/2015 2:00p [facility] M.D. 04307 715.96 Lamin Office Visit 08/04/2014 11:00a [facility] Nikita Stevens 91085 724.4 Of [facility] M.Maite Office Visit 04/22/2014 1:15p [facility] Nikita Stevens 32108 727.40 Of Byron MVon Office Visit 02/01/2014 10:00a [facility] Ambrosio Martinez M.D. 29731 729.1 Of [facility] Office Visit 12/29/2013 9:00a [facility] Ambrosio Martinez M.D. 82671 729.1 Of [facility] 296.32 726.5 Office Visit 04/15/2013 11:45a [facility] Abdirahman Martinez 75975 721.3 Of Lamin Bullard R.P.A.-C Office Visit 03/18/2013 10:15a [facility] Johnson M.D. 95320 722.93 Of Lamin 715.95 716.96 724.4 Office Visit 10/03/2011 3:45p [facility] M.D. 75718 715.95 Lamin 722.93 Office Visit 01/12/2011 9:30a [facility] Abdirahman Martinez 25710 715.95 Of Lamin Bullard R.P.A.-C Office Visit 12/04/2010 4:15p [facility] Johnson M.D. 57978 715.95 Of Lamin Office Visit 11/06/2010 2:00p [facility] M.D. 96342 715.96 Of C.M.ADaniel 715.95 Office Visit 10/26/2009 [facility], 56241 300.00 jodie [facility] Hospitalists Khai 789.00 Office Visit 09/19/2009 10:30a [facility] M.D. 62898 715.96 C.M.ADaniel Office Visit 07/20/2009 1:45p [facility] M.D. 51405 716.96 C.M.A. Plan of Care Future Appointment(s):01/13/2018 10:45 am - Binta Alicia M.D. at [facility]01/02/2018 10:30 am - Dorian Khan PA-C at [facility]01/02/2018 10:30 am - CHRIS Leigh at [facility]01/02/2018 10:30 am - Binta Alicia M.D. at [facility]12/25/2017 - Binta Alicia M.D.M16.12 Unilateral primary osteoarthritis, left hipFollow up:Follow up: 2 weeks after ptdvvvxS83.552 Pain in left hip
[2018-01-02] MEDS ORDERED: Clindamycin 900 MG IVPREMIX(* 900 MG/50 ML SDV IV ONE (07:49)
[2018-01-02] MEDS ORDERED: Morphine PF AMP (0.5MG/ML)* 5 MG/10 ML AMP ONE (08:22)
[2018-01-02] MEDS ORDERED: Midazolam* 1 MG/ML 5 ML VIAL (5 MG) ONE (08:22)
[2018-01-02] MEDS ORDERED: fentaNYL* 50 MCG/ML 2 ML VIAL (100 MCG VIAL) ONE ×2 (08:22→10:23)
[2018-01-02] MEDS ORDERED: Bupivacaine 0.5% SDV PF* 30ML VIAL ONE (09:28)
[2018-01-02] MEDS ORDERED: Succinylcholine* 20 MG/ML 10 ML VIAL ONE (09:45)
[2018-01-02] MEDS ORDERED: Propofol* 10 MG/ML 20 ML BTL IV PUSH ONE (09:45)
[2018-01-02] MEDS ORDERED: Lidocaine 2% PF * 5 ML VIAL ONE (09:45)
[2018-01-02] MEDS ORDERED: Ondansetron SYRINGE* 4 MG/2 ML SYRINGE (from 40mg/20ml vial) IV ONE (10:00)
[2018-01-02] MEDS ORDERED: Dexamethasone IV* 4 MG/ML 1 ML (4 MG) ONE (10:27)
[2018-01-02] MEDS ORDERED: fentaNYL* 50 MCG/ML 2 ML VIAL (100 MCG VIAL) IV PRN (12:06)
[2018-01-02] MEDS ORDERED: PROCHLORPERAZINE INJ 5 MG/ML 2 ML VIAL IV PRN (12:06)
[2018-01-02] MEDS ORDERED: Acetaminophen TAB* 325 MG PO PRN ×2 (12:06→12:08)
[2018-01-02] MEDS ORDERED: Ibuprofen TAB* 600 MG PO PRN (12:06)
[2018-01-02] MEDS ORDERED: Metoclopramide IV* 5 MG/ML 2 ML VIAL IV PRN (12:06)
[2018-01-02] MEDS ORDERED: Naloxone* 0.4 MG/ML 1 ML VIAL IV PRN (12:06)
[2018-01-02] MEDS ORDERED: diPHENhydraMINE IV* 50 MG/ML 1 ml VIAL (BENADRYL) IV PRN (12:08)
[2018-01-02] MEDS ORDERED: Ondansetron TAB* 4 MG PO PRN (12:08)
[2018-01-02] MEDS ORDERED: oxyCODONE TAB* 5 MG TAB PO PRN (12:08)
[2018-01-02] MEDS ORDERED: Morphine VIAL* 4 MG/ML VIAL (1 ml vial) IV PRN (12:08)
[2018-01-02] MEDS ORDERED: Cyclobenzaprine TAB* 10 MG PO PRN (12:08)
[2018-01-02] MEDS ORDERED: Magnesium Hydroxide LIQ* 30 ML UDC PO PRN (12:08)
[2018-01-02] MEDS ORDERED: Bisacodyl SUPP* 10 MG SUPP PR PRN (12:08)
[2018-01-02] MEDS ORDERED: HYDROmorphone INJ* 2 MG/ML CARPUJECT SYRINGE ONE (12:36)
[2018-01-02] MEDS: HYDROmorphone INJ* 1 MG/ML CARPUJECT SYRINGE IV PRN ×2 (12:38→13:31)
--- NOTE | 2018-01-02 12:52 | RAD ---
INDICATION: Left hip arthroplasty COMPARISON: Left hip 3 2017 TECHNIQUE: An AP view of the pelvis and AP views of the hip in neutral and abducted position were obtained FINDINGS: There is left hip arthroplasty. The prosthesis appears normally seated. Incidental note is made of an existing right hip prosthesis. There are soft tissue changes about the left hip consistent with recent surgery. IMPRESSION: THE LEFT HIP PROSTHESIS APPEARS NORMALLY SEATED.
[2018-01-02] MEDS: oxyCODONE/Acetamin 5/325 MG* TAB PO PRN ×3 (14:18→22:22)
[2018-01-02] MEDS ORDERED: traZODone TAB* 50 MG TAB PO PRN (14:32)
[2018-01-02] MEDS: Hydrocortisone INJ* 100 MG VIAL IV SCH ×2 (15:50→22:23)
--- NOTE | 2018-01-02 16:39 | RAD ---
INDICATION: Status post total left hip replacement surgery TECHNIQUE: A portable AP view of the pelvis was obtained in the operating room. FINDINGS: The patient is undergoing a total left hip replacement surgery. The acetabular prostheses is in place and there is a femoral prostheses template in place which are in normal alignment. IMPRESSION: INTRAOPERATIVE CONTROL FILMS.
[2018-01-02] MEDS ORDERED: Warfarin TAB(*) 6 MG PO ONE (17:00)
[2018-01-02] MEDS: Clindamycin 600 MG IVPREMIX(* 600 MG/50 ML SDV IV SCH (18:01)
[2018-01-02] MEDS: Magnesium Hydroxide LIQ* 30 ML UDC PO SCH (20:16)
[2018-01-02] MEDS: Docusate CAP* 100 MG PO SCH (20:18)
--- NOTE | 2018-01-02 20:36 | CONS ---
CC: Dr. Ibrahim; Dr. Binta Alicia * CONSULTATION REPORT: DATE OF CONSULT: 01/02/18 TIME OF EVALUATION: 1:40 p.m. PRIMARY CARE PROVIDER: Dr. Ibrahim. REQUESTING PHYSICIAN: Orthopedist, Dr. Binta Alicia. HISTORY OF PRESENT ILLNESS: Ms. Boucher is a 77-year-old lady with a past medical history of hypertension, polymyalgia rheumatica, arthritis, GERD, anxiety, hyperlipidemia, breast cancer, who was admitted for an elective left hip arthroplasty. The patient was seen by her primary care provider on 12/12/17 and at that time, she was deemed to be stable and cleared for left hip surgery. The procedure was performed by Dr. Alicia on 01/02/18 with estimated blood loss of less than 200 mL. At the time of my evaluation, the patient was seen in the PACU and she is still a little sedated. Her only complaint at this time is left hip pain. She denies chest pain, palpitation, shortness of breath, nausea, or vomiting. PAST MEDICAL HISTORY: 1. Hypertension. 2. Polymyalgia rheumatica. 3. Arthritis. 4. GERD. 5. Anxiety. 6. Hyperlipidemia. 7. Breast cancer, status post left breast lumpectomy. PAST SURGICAL HISTORY: 1. Status post left and right knee replacements. 2. Status post right hip replacement. 3. Status post hysterectomy. 4. Status post cholecystectomy. 5. Status post lumbar spine surgery. MEDICATIONS: 1. Aspirin 81 mg p.o. daily. 2. Indapamide 2.5 mg p.o. q.a.m. 3. Culturelle 1 capsule p.o. q.a.m. 4. Naproxen 220 mg p.o. q.12 hours p.r.n. pain. 5. Omeprazole 40 mg p.o. q.a.m. 6. Prednisone 8 mg p.o. q.p.m. 7. Spironolactone 25 mg p.o. q.a.m. 8. Trazodone 1 tablet p.o. at bedtime as needed for insomnia. 9. Verapamil 240 mg p.o. q.a.m. ALLERGIES: With IODINE, NIACIN, BETADINE, the patient had a rash; with PENICILLIN, she had hives; with STATIN, she had muscle ache. FAMILY HISTORY: Mother in her 90s of SLE and heart disease. Father at age 84 of renal cancer and heart disease. Sister is 66 has arthritis, another sister 76 with arthritis, and son with history of leukemia. SOCIAL HISTORY: No history of tobacco abuse. Some alcohol intake. Surrogate decision maker is her son, Miriam Jay, phone number is [phone]. Please note that the patient is unable to provide this information at this time and this is obtained from her records. REVIEW OF SYSTEMS: I am unable to obtain from the patient at this time due to her sedation. PHYSICAL EXAM: Vital Signs: Temperature 97.4, heart rate 84, respiratory rate 16, oxygen saturation 98% on room air, blood pressure is 132/69. General: The patient is an obese lady, lying in bed, in no acute distress. HEENT: Pupils are equal. Moist mucous membranes. CVS: Normal S1, S2. Regular rate and rhythm. Chest: Breath sounds present bilaterally with no added sounds. Abdomen is obese. Bowel sounds are present. Extremities: No edema. The patient has good perfusion bilaterally. Neuro: She is lethargic, but arousable to voice and oriented to self and place. She is very hard of hearing and hears best when we talked loudly on her right side. ASSESSMENT AND PLAN: Ms. Boucher is a 77-year-old lady with a past medical history of hypertension; polymyalgia rheumatica, on chronic steroids; arthritis ; gastroesophageal reflux disease; anxiety; hyperlipidemia; breast cancer, who was admitted for elective left hip arthroplasty. 1. Status post left left hip arthroplasty. Management as per Orthopedics. 2. Hypertension. The patient's blood pressure is controlled at this time and we are going to plan to continue her verapamil, spironolactone, and indapamide starting tomorrow. 3. Polymyalgia rheumatica. The patient is on steroids chronically and I am concerned she may develop relative adrenal insufficiency secondary to the surgical stress. So, we will supplement her with hydrocortisone at this point and monitor her vital signs. 4. Gastroesophageal reflux disease. We will continue omeprazole. 5. DVT prophylaxis. As per Ortho, will be with Lovenox and warfarin. 6. Code status is full. TIME SPENT: Approximately 50 minutes was spent with the patient's interview, medical records review, physical examination to complete this admission, more than half of this time was spent [id number] with the patient and coordination of care. [id number]/[facility] #: [id number] ZAKIA
[2018-01-03] MEDS: Clindamycin 600 MG IVPREMIX(* 600 MG/50 ML SDV IV SCH ×2 (01:57→09:31)
[2018-01-03 05:53] LABS: Hematocrit 36 % (35-47); Hemoglobin 12.2 g/dl (12.0-16.0); Mean Platelet Volume 7.6 um3 (7.4-10.4); Platelet Count 266 10^3/ul (150-450)
[2018-01-03 06:00] LABS: INR 1.08 (0.77-1.02)
[2018-01-03 06:08] LABS: EGFR Non-African American 68.7 (>60)
[2018-01-03] MEDS: Hydrocortisone INJ* 100 MG VIAL IV SCH (06:17)
[2018-01-03] MEDS: oxyCODONE/Acetamin 5/325 MG* TAB PO PRN ×3 (06:21→17:54)
--- NOTE | 2018-01-03 08:55 | OP ---
OPERATIVE REPORT: DATE OF OPERATION: 01/02/18 DATE OF : 42 ATTENDING SURGEON: Binta Alicia MD VOUCHER EXAMINER: CHRIS Moore. Mr. Khan did help throughout the procedure with preparation of the leg, wound retraction, manipulat ion of the hip and wound closure. ANESTHESIOLOGIST: Dr. Vásquez. ANESTHESIA: Spinal. PRE-OP DIAGNOSIS: Severe end-stage degenerative osteoarthritis of the left hip joint. POST-OP DIAGNOSIS: Severe end-stage degenerative osteoarthritis of the left hip joint. OPERATIVE PROCEDURE: Left total hip arthroplasty. HARDWARE USED: This is Erwin, uncemented, total hip arthroplasty hardware. For the cup, a Tritani um cluster hole shell 50D, two 20-mm screws were used. A Trident X3 0-degree polyethylene insert 36D was used. For the stem, an Accolade TMZF size 2 with a 127-degree neck. For the head, a Biolox delt a ceramic V40 femoral head 36 + 2.5. COMPLICATIONS: None. ESTIMATED BLOOD LOSS: 250 mL. SPECIMEN: Femoral head, neck and acetabular reaming sent to pathology. BRIEF HISTORY/INDICATION: Ms. Boucher is a 77-year-old female with years of increasingly severe left hip pain. She failed conservative treatment with antiinflammatories, physical therapy and ambulator y assistive device. Due to continued pain and decreased quality of life, she elected to undergo left total hip arthroplasty. Radiograph showed [id number] arthritis. Informed consent was obtained fr om the patient. She understood the risks of surgery included, but were not limited to, bleeding, inf ection, damage to nearby structures, continued pain, need for further surgery, intraoperative fractur e, nerve palsy, hardware failure or loosening, dislocation, leg length discrepancy, stroke, heart att ack, blood clot and . She wished to proceed. INTRAOPERATIVE FINDINGS: Intraoperatively, the patient was noted to have severe arthritis with compl ete loss of cartilage along the femoral head, neck and acetabulum. The acetabulum had significant os teophyte formation around the entire rim. DESCRIPTION OF PROCEDURE: Ms. Boucher was identified in the preanesthesia unit. Her left lower extre mity was marked as the correct operative side. Informed consent was signed and placed in the chart. The patient was taken to the operating room and placed under spinal anesthesia. A Cortez catheter wa s placed. She was placed in the right lateral decubitus position on the pegboard and all bony promin ences were well padded. The left lower extremity was prepped and draped in the usual sterile fashion . Preop time-out was made to correctly identify the patient's side and site. Appropriate perioperat deidre antibiotics were given within 1 hour of incision. A 12-cm posterior hip incision was made with a 10-blade and carried down to the lateral fascial layer . Lateral fascial layer was incised in line with the skin incision. A Charnley retractor was placed . The piriformis and conjoint tendons were identified. These were elevated off the posterolateral f emur and tagged with #5 Ethibond. Next, the electrocautery was used to make a standard posterolatera l capsular flap and this was also tagged with #5 Ethibond. The hip was carefully dislocated. Lesser troch to the center of the femoral head measured 55 mm. Oscillating saw was used to make the femoral neck cut. Femoral head was removed. The femur was retracted anteriorly. After appropriate placement of retractor, the acetabulum was wel l visualized. The acetabulum was sequentially reamed up to a size 49. A 49 reamer obtained a bleedi ng subchondral bone bed. A 49 trial had excellent fit. Final implant chosen was a 50D Tritanium clu ster hole shell. This was impacted into the acetabulum without difficulty. Stability of the linear was noted to be satisfactory with appropriate anteversion and abduction angle. Two screws of length 20-mm and 20-mm were placed in the superoposterior quadrant for extra stability. A Trident X3 0-degr ee polyethylene insert 36D was chosen. This was impacted into the acetabulum without difficulty. St ability of the insert was checked and rechecked and noted to be stable. Next, the attention was turned to preparation of the femur. A canal finder was used to enter the pro ximal femur. Proximal femur was sequentially broached up to a size 2. Size 2 had excellent fit with appropriate anteversion. A 127 neck trial was chosen as well as a 36 + 0 femoral head trial. Lesse r troch to center of the femoral head measured 53 mm, therefore a 36 + 2.5 head was chosen. Lesser t roch to center of the femoral head measured 55 mm. The hip was reduced and taken through a range of motion. The hip was stable in all positions. There was good soft tissue tension and appropriate leg length. The hip was dislocated. All trials were removed. Final implant chosen with a size 2 Accol lalito TMZF with a 127-degree neck. This was impacted into the femoral canal without difficulty. Stabil ity of the stem was noted to be excellent. There was appropriate anteversion. A Biolox delta cerami c V40 femoral head, 36 + 2.5 was chosen. This was impacted on to the femoral neck without difficulty . The hip was reduced and taken through a range of motion. The hip was stable in all positions. The hip was copiously irrigated with sterile saline. Previously tagged capsule and tendons were reappro ximated to the posterolateral femur through 2 trochanteric drill holes. The lateral fascial layer wa s closed using interrupted #1 Vicryls. The rest of the incision was closed in a layered fashion usin g 0 and 2-0 Vicryls. Skin was closed using running 3-0 Monocryl and Dermabond. Sterile Adaptic, 4x4 s and paper tape were placed over the incision. The patient's anesthesia was reversed without diffic ulty. She was taken to the PACU in stable condition. Intended weightbearing will be weightbearing a s tolerated. Intended DVT prophylaxis will be Coumadin with a Lovenox bridge. [id number]/[facility] #: [id number]
[2018-01-03] MEDS: Magnesium Hydroxide LIQ* 30 ML UDC PO SCH ×2 (09:28→19:24)
[2018-01-03] MEDS: Omeprazole CAP* 20 MG PO SCH (09:29)
[2018-01-03] MEDS: Indapamide TAB* 2.5 MG PO SCH (09:29)
[2018-01-03] MEDS: Docusate CAP* 100 MG PO SCH ×2 (09:29→19:24)
[2018-01-03] MEDS: Vitamin THERAPEUTIC TAB PO SCH (09:29)
[2018-01-03] MEDS: Potassium Chlor TAB* 20 MEQ TAB.ER PO SCH ×2 (09:29→19:24)
[2018-01-03] MEDS: Verapamil SR TAB* 240 MG PO SCH (09:29)
[2018-01-03] MEDS: Aspirin EC TAB* 81 MG TAB.EC PO SCH (09:29)
[2018-01-03] MEDS: Lactobacillus Acidophilus* 1 TAB PO SCH (09:29)
[2018-01-03] MEDS: Spironolactone TAB* 25 MG PO SCH (09:29)
[2018-01-03] MEDS: predniSONE TAB* 10 MG PO SCH (09:29)
--- NOTE | 2018-01-03 09:59 | PN ---
Progress Note - Progress Note Date of Service: 01/03/18 SOAP: Subjective: [Pt was seen sitting up in chair today. Pt states that she feels this hip arthroplasty feels less painful than when the last one was done. She states pain is well controlled. Denies any nausea, vomiting, chest pain, sob, numbness or tingling. ] Objective: [General: Awake, alert and oriented. NAD MSK, LLE: Dressing is clean, dry and intact. +df/pf. Calf is soft and non tender. Sensation intact to light touch. 2+ dp pulse present. ] Vital Signs Temp 97.9 F 01/03/18 07:32 Pulse 85 01/03/18 07:32 Resp 16 01/03/18 08:21 BP 119/73 01/03/18 07:32 Pulse Ox 91 01/03/18 07:32 Intake & Output 01/02/18 01/03/18 01/03/18 18:59 06:59 18:59 Intake Total 1500 2170 Output Total 550 1325 Balance 950 845 Weight 207 lb 12.8 oz Intake: IV Fluids 1500 970 LR 970 OR 1500 IVPB 100 ABX - CLINDAMYCIN 100 Oral 0 1100 Output: Cortez 550 1325 Other: # Bowel Movements 0 Estimated Blood Loss 200 Comment Assessment: [S/P LTHA] Plan: [-finish post op abx - lovenox today, warfarin this evening, INR was 1.08 this am, 8mg dose this evening - continue with PT/OT - continue with current pain medication - possible DC tomorrow should pt meet all goals. ]
[2018-01-03] MEDS ORDERED: Enoxaparin(*) 30 MG/0.3 ML SYR SUBCUT SCH (12:00)
--- NOTE | 2018-01-03 15:53 | PN ---
Hospitalist Progress Note Date of Service: 01/03/18 HOSPITALIST ADDENDUM Mrs. Boucher is a 77yo F with PMH of HTN, PMR, HLD, breast CA, admitted for elective left hip arthroplasty. She is doing well, ambulated with PT. Her BP has been stable, so will d/c IV hydrocortisone and resume prednisone. Continue all her other meds and d/c IVF.
[2018-01-04] MEDS: oxyCODONE/Acetamin 5/325 MG* TAB PO PRN ×2 (04:28→08:31)
[2018-01-04 05:41] LABS: Hematocrit 32 % (35-47); Mean Platelet Volume 7.6 um3 (7.4-10.4); Platelet Count 231 10^3/ul (150-450)
[2018-01-04 05:57] LABS: INR 1.14 (0.77-1.02)
[2018-01-04] MEDS: Lactobacillus Acidophilus* 1 TAB PO SCH (08:29)
[2018-01-04] MEDS: Omeprazole CAP* 20 MG PO SCH (08:29)
[2018-01-04] MEDS: Aspirin EC TAB* 81 MG TAB.EC PO SCH (08:29)
[2018-01-04] MEDS: Spironolactone TAB* 25 MG PO SCH (08:30)
[2018-01-04] MEDS: Docusate CAP* 100 MG PO SCH (08:30)
[2018-01-04] MEDS: Verapamil SR TAB* 240 MG PO SCH (08:31)
[2018-01-04] MEDS: predniSONE TAB* 10 MG PO SCH (08:31)
[2018-01-04] MEDS: Potassium Chlor TAB* 20 MEQ TAB.ER PO SCH (08:31)
[2018-01-04] MEDS: Vitamin THERAPEUTIC TAB PO SCH (08:31)
[2018-01-04] MEDS: Indapamide TAB* 2.5 MG PO SCH (08:32)
[2018-01-04] MEDS: Magnesium Hydroxide LIQ* 30 ML UDC PO SCH (08:34)
--- NOTE | 2018-01-04 09:43 | PN ---
Progress Note - Progress Note Date of Service: 01/04/18 SOAP: Subjective: [Pt was seen sitting up in chair today. She states pain is well controlled. Denies any nausea, vomiting, chest pain, sob, numbness or tingling. States she feels ready to go home today. Has been working well with PT. ] Objective: [General: Awake, alert and oriented. NAD MSK, LLE: Dressing changed today. Incision is clean, dry and intact with no drainage or erythema present. +df/pf. Calf is soft and non tender. Sensation intact to light touch. 2+ dp pulse present. ] Vital Signs Temp 98.5 F 01/04/18 07:49 Pulse 100 01/04/18 07:49 Resp 18 01/04/18 08:31 BP 136/81 01/04/18 07:49 Pulse Ox 95 01/04/18 08:30 Intake & Output 01/03/18 01/04/18 01/04/18 18:59 06:59 18:59 Intake Total 440 1020 220 Output Total 450 550 75 Balance -10 470 145 Intake: Oral 440 1020 220 Output: Urine 450 550 75 Other: Date of Last Bowel 01/04/18 Movement # Bowel Movements 1 Estimated Stool Amount Small Assessment: [S/P LTHA] Plan: - INR was 1.18 this am, 8mg dose this evening of warfarin, 6mg tomorrow evening and recheck on saturday - continue with PT/OT - continue with current pain medication - DC home today ]
[2018-01-04 11:50] VITALS: BP 122/64
--- NOTE | 2018-01-07 03:47 | DS ---
DISCHARGE SUMMARY: DATE OF ADMISSION: 01/02/18 DATE OF DISCHARGE: 01/04/18 PROVIDER: Dr. Binta Alicia.* (DICTATED BY CHRIS PARK) ADMITTING DIAGNOSIS: Left total hip arthroplasty. CONSULTATION: PT, OT and Hospitalist Medicine. HISTORY OF PRESENT ILLNESS: Ms. Boucher is a 77-year-old female with complaints of left hip pain. She has failed conservative management and elected to proceed with a left total hip arthroplasty which was performed on by Dr. Binta Alicia. HOSPITAL COURSE: The patient was admitted to [facility] on 01/02/18 and underwent a left total hip arthroplasty with no complications. The patient recovered briefly in the postanesthesia care unit and and was transferred short stay surgical unit in stable condition. On postop day #1, the patient's H and H was 12.2 and 36 and INR was 1.08 after 6 mg of Coumadin the night before. She could demonstrate dorsiflexion and plantar flexion with good strength. Dressing was clean, dry and intact. The patient was able to get out of bed with physical therapy. Pain was well controlled with oral pain medication. On postop day #2, the urinary catheter was discontinued and the patient was able to void without difficulty. The incision was found to be benign with minimal drainage, no erythema or warmth. The patient's H and H was 11.0 and 32 with an INR of 1.14 after 8 mg of Coumadin the night before. The patient was able to ambulate with the use of a rolling walker and assistance. The patient's pain was well controlled and found to be safe for discharge. Throughout the hospital course, the vital signs remained stable and the patient was afebrile. DISCHARGE CONDITION: Good. DISCHARGE MEDICATIONS: 1. Percocet 5/325. 2. Colace 100 mg. 3. Warfarin 2 mg. HOME MEDICATIONS: 1. Verapamil 240 mg daily. 2. Trazodone mg q.h.s. 3. Omeprazole 40 mg daily. 4. Aspirin 81 mg daily, hold. 5. Indapamide 2.5 mg daily. 6. Spironolactone 25 mg 2 tablets every day. 7. Prednisone. 8. Culturelle. 9. Naproxen 500 mg. DISCHARGE INSTRUCTIONS: Weightbearing as tolerated. Wound care: Okay to shower on postop day 3. No bathing, swimming, or submerging of the wound. Use gentle soap and pat dry. Cover with gauze, Perez wrap or tape. Call orthopedic office for increased drainage, redness, increased pain or fever. Go to the ER with shortness of breath or chest pain. Diet: Regular diet. Increased fluids and fiber to prevent constipation. Continue to use stool softeners. Call the office if no bowel motion within 48 hours. Hip replacement. Continue hip precautions. Do not cross the legs or bend for greater than 90 degrees or squat. Continue physical therapy and occupational therapy exercises as shown. Visiting home nurses to do wound check. Visiting home nurses to draw blood for INR on Saturday and . Coumadin dosing. Please note that you have been given 2 mg tablets. Please kristy dosing instructions on your calendar as they are provided to you. Dosing at 8 mg of Coumadin tonight, 6 mg of Coumadin tomorrow, recheck on Saturday. Pain control with Percocet 5/325 one to two tabs by mouth every 4 to 6 hours as needed for pain, maximum of 10 tabs per day. Please note that Percocet contains Tylenol which has a maximum daily dose of 4000 mg from all sources. Antibiotics required prior to any dental work. Follow up with Dr. Binta Alicia in 10 to 14 days. Call for an appointment. CHRSI PARK [id number]/[facility] #: [id number] ZAKIA
== END 2018-01-04 11:40 | disposition home health service (06) | DRG 470 ==
LOC: AA 07:37 → SSU 13:57
PROVIDERS: ADMIT Orthopaedic Surgery Adult Reconstructive Orthopaedic Surgery; ATTEND Internal Medicine
PROC: 0SRB04A Replacement of Left Hip Joint with Ceramic on Polyethylene Synthetic Substitute, Uncemented, Open Approach (ICD-10-PCS; principal; 2018-01-02 09:00)
DX: M16.12 Unilateral primary osteoarthritis, left hip (principal); I10 Essential (primary) hypertension; K21.9 Gastro-esophageal reflux disease without esophagitis; M79.7 Fibromyalgia; Z96.642 Presence of left artificial hip joint; M35.3 Polymyalgia rheumatica; E66.9 Obesity, unspecified; M25.752 Osteophyte, left hip; F41.9 Anxiety disorder, unspecified; E78.5 Hyperlipidemia, unspecified; Z96.653 Presence of artificial knee joint, bilateral; Z90.49 Acquired absence of other specified parts of digestive tract; Z90.710 Acquired absence of both cervix and uterus; Z88.0 Allergy status to penicillin; Z88.8 Allergy status to other drugs, medicaments and biological substances; Z82.49 Family history of ischemic heart disease and other diseases of the circulatory system; Z85.3 Personal history of malignant neoplasm of breast; Z86.73 Personal history of transient ischemic attack (TIA), and cerebral infarction without residual deficits; Z80.3 Family history of malignant neoplasm of breast; Z82.61 Family history of arthritis; Z72.89 Other problems related to lifestyle; Z91.041 Radiographic dye allergy status; Z80.51 Family history of malignant neoplasm of kidney; Z68.38 Body mass index [BMI] 38.0-38.9, adult
CPT/HCPCS: 36415; 80048; 85014; 85018; 85049; 85610; 88304; 88311; A9270-GY; C1713; C1776; G8978-GP-CJ; G8979-GP-CI; G8980-GP-CJ; G8987-GO-CJ; G8988-GO-CI; G8989-GO-CI; J0330; J1100; J1170; J1650; J1720; J2250; J2405; J2704; J3010; J7512

== ENCOUNTER 2018-07-08 07:53 | Emergency (ER) | payer MEDICARE ==
[2018-07-08] MEDS ORDERED: NS 0.9% 1000 ML* 1,000 ML IV ONE (08:41)
[2018-07-08] MEDS ORDERED: Acetaminophen TAB* 325 MG PO ONE (08:44)
[2018-07-08 08:56] LABS: ABS Basophils 0.1 10^3/ul (0-0.2); ABS Eosinophils 0.1 10^3/ul (0-0.6); ABS Lymphocytes 1.9 10^3/ul (1.0-4.8); ABS Monocytes 0.7 10^3/ul (0-0.8); ABS Neutrophils 7.2 10^3/ul (1.5-7.7); ABS Nucleated RBC 0 10^3/ul; Eosinophil % 1.3 %; Hematocrit 44 % (35-47); Hemoglobin 14.7 g/dl (12.0-16.0); Lymphocyte % 18.7 %; Mean Corpuscular HGB Conc 33 g/dl (31-36); Mean Corpuscular Hemoglobin 31 pg (27-31); Mean Corpuscular Volume 92 fL (80-97); Mean Platelet Volume 7.8 fL (7.4-10.4); Nucleated Red Blood Cells % 0.1; Platelet Count 302 10^3/ul (150-450); Red Cell Distribution Width 16 % (10.5-15)
[2018-07-08 09:13] LABS: Albumin/Globulin Ratio 1.5 (1-3); BUN/Creatinine Ratio 24.7 (8-20); C Reactive Protein 3.54 mg/L (<8.01); Calcium 10.2 mg/dL (8.6-10.3); EGFR Non-African American 68.7 (>60); Globulin 2.7 g/dL (2-4); Potassium 3.5 mmol/L (3.5-5.0); Total Bilirubin 0.4 mg/dL (0.2-1.0); Total Protein 6.7 g/dL (6.4-8.9)
--- NOTE | 2018-07-08 09:24 | ED ---
Headache - HPI Summary HPI Summary: Patient is a 77-year-old female who presents emergency department for headache and dizziness that started acutely this morning. Patient states she woke up around 6 AM with a headache. Patient states she got out of bed and felt dizzy and off-balance and had to hold onto the wall. Patient denies associated symptoms of chest pain or shortness of breath, at that time. Patient notes recent upper respiratory infection and cough. She was seen by family doctor last week and started on clindamycin. Patient also notes some mild lower abdominal pain. Denies vomiting, diarrhea or urinary symptoms. History of CVA , HTN, GERD. Patient otherwise denies numbness, tingling or weakness. Symptoms are moderate in severity. No current modifying factors. Pt. has not yet taken her morning blood pressure medication. - History Of Current Complaint Chief Complaint: EDDizziness Stated Complaint: DIZZINESS Time Seen by Provider: 07/08/18 08:24 Hx Obtained From: Patient - Allergies/Home Medications Allergies/Adverse Reactions: Allergies Allergy/AdvReac Type Severity Reaction Status Date / Time iodine Allergy Intermediate Rash Verified 01/02/18 08:05 niacin Allergy Intermediate Rash Verified 01/02/18 08:05 Penicillins Allergy Intermediate Hives Verified 01/02/18 08:05 povidone-iodine Allergy Intermediate Rash Verified 01/02/18 08:05 [From Betadine] soap [From Betadine] Allergy Intermediate Rash Verified 01/02/18 08:05 Fnxumxi-Idx-Blf Reductase AdvReac Intermediate Muscle Ache Verified 01/02/18 08: 05 Inhibitor Home Medications: Home Medications Aspirin EC TAB* 1 tab PO DAILY 07/08/18 [History Confirmed 07/08/18] Clindamycin Cap(NF) [Clindamycin Cap 300 mg Cap(NF)] 600 mg PO SEE INSTRUCTIONS 07/08/18 [History Confirmed 07/08/18] Culturelle Probiotics Capsule 1 cap PO DAILY 07/08/18 [History Confirmed ] PMH/Surg Hx/FS Hx/Imm Hx Previously Healthy: Yes Endocrine/Hematology History: Denies: Hx Diabetes Cardiovascular History: Reports: Hx Hypertension, Hx Rheumatic Fever - childhood , Other Cardiovascular Problems/Disorders - HX STROKE 2007, HX BLOOD CLOT Denies: Hx Congestive Heart Failure, Hx Pacemaker/ICD GI History: Reports: Hx Gall Bladder Disease - removed 2000, Hx Gastroesophageal Reflux Disease - ON MEDS, Hx Ulcer - STOMACH 20+ YEARS AGO History: Denies: Hx Dialysis, Hx Renal Disease Musculoskeletal History: Reports: Hx Arthritis, Hx Back Problems, Other Musculoskeletal History - fibromyalgia Sensory History: Reports: Hx Cataracts, Hx Contacts or Glasses, Hx Hearing Aid - pt left hearing aides at home, Hx Hearing Problem Opthamlomology History: Reports: Hx Cataracts, Hx Contacts or Glasses Neurological History: Reports: Hx Nerve Disease, Other Neuro Impairments/ Disorders - FIBROMYALGIA Psychiatric History: Denies: Hx Anxiety, Hx Depression, Hx Panic Disorder - Cancer History Cancer Type, Location and Year: BREAST Hx Chemotherapy: No Hx Radiation Therapy: Yes - Surgical History Surgery Procedure, Year, and Place: Lsp surgery 04/2014. Left knee replacement. Right hip replacement. Left breast cancer, surgery x2, one lymph node removed. Perforated ulcer. total hysterectomy Hx Anesthesia Reactions: No - Immunization History Date of Tetanus Vaccine: Up to date Date of Influenza Vaccine: Fall 2011 Infectious Disease History: No Infectious Disease History: Denies: Traveled Outside the [place] in Last 30 Days - Family History Known Family History: Positive: Cardiac Disease Family History: Lupus - Social History Occupation: Retired Lives: With Family Alcohol Use: None Alcohol Amount: 2 DRINKS A YEAR Substance Use Type: Reports: None Smoking Status (MU): Never Smoked Tobacco Review of Systems Constitutional: Negative Negative: Fever, Chills Eyes: Negative Negative: Photophobia, Blurred Vision, Diplopia, Drainage, Erythema Positive: Nasal Discharge Cardiovascular: Negative Positive: Cough. Negative: Shortness Of Breath Positive: Abdominal Pain. Negative: Vomiting, Diarrhea, Nausea Genitourinary: Negative Musculoskeletal: Negative Skin: Negative Positive: Headache. Negative: Weakness, Paresthesia, Numbness, Syncope, Slurred Speech Negative: Other All Other Systems Reviewed And Are Negative: Yes Physical Exam Triage Information Reviewed: Yes Vital Signs On Initial Exam: Initial Vitals Temp Pulse Resp BP Pulse Ox 97 F 75 16 154/108 94 07/08/18 08:02 07/08/18 08:02 07/08/18 08:02 07/08/18 08:02 07/08/18 08:02 Vital Signs Reviewed: Yes Appearance: Positive: Well-Appearing - Pt. sitting up in bed in NAD. Son present. Sinus congestion noted. Answers questions appropriately. Skin: Positive: Warm, Dry Diagnostics - Vital Signs Vital Signs Temp Pulse Resp BP Pulse Ox 07/08/18 09:03 73 17 96 07/08/18 08:40 74 15 95 07/08/18 08:34 70 16 142/88 94 07/08/18 08:02 97 F 75 16 154/108 94 - Laboratory Lab Results: Lab Results 07/08/18 07/08/18 07/08/18 Range/Units 08:45 08:45 08:45 WBC 10.0 (3.5-10.8) 10^3/ul RBC 4.80 (4.00-5.40) 10^6/ul Hgb 14.7 (12.0-16.0) g/dl Hct 44 (35-47) % MCV 92 (80-97) fL MCH 31 (27-31) pg MCHC 33 (31-36) g/dl RDW 16 H (10.5-15) % Plt Count 302 (150-450) 10^3/ul MPV 7.8 (7.4-10.4) fL Neut % (Auto) 72.0 % Lymph % (Auto) 18.7 % Bullitt % (Auto) 6.9 % Eos % (Auto) 1.3 % Baso % (Auto) 1.1 % Absolute Neuts (auto) 7.2 (1.5-7.7) 10^3/ul Absolute Lymphs (auto) 1.9 (1.0-4.8) 10^3/ul Absolute Monos (auto) 0.7 (0-0.8) 10^3/ul Absolute Eos (auto) 0.1 (0-0.6) 10^3/ul Absolute Basos (auto) 0.1 (0-0.2) 10^3/ul Absolute Nucleated RBC 0 10^3/ul Nucleated RBC % 0.1 Sodium 140 (135-145) mmol/L Potassium 3.5 (3.5-5.0) mmol/L Chloride 102 (101-111) mmol/L Carbon Dioxide 31 (22-32) mmol/L Anion Gap 7 (2-11) mmol/L BUN 20 (6-24) mg/dL Creatinine 0.81 (0.51-0.95) mg/dL Est GFR ( Amer) 83.2 (>60) Est GFR (Non-Af Amer) 68.7 (>60) BUN/Creatinine Ratio 24.7 H (8-20) Glucose 99 (70-100) mg/dL Lactic Acid 1.5 (0.5-2.0) mmol/L Calcium 10.2 (8.6-10.3) mg/dL Total Bilirubin 0.40 (0.2-1.0) mg/dL AST 12 L (13-39) U/L ALT 10 (7-52) U/L Alkaline Phosphatase 78 (34-104) U/L Troponin I 0.00 (<0.04) ng/mL C-Reactive Protein 3.54 (<8.01) mg/L Total Protein 6.7 (6.4-8.9) g/dL Albumin 4.0 (3.2-5.2) g/dL Globulin 2.7 (2-4) g/dL Albumin/Globulin Ratio 1.5 (1-3) Result Diagrams: 07/08/18 08:45 07/08/18 08:45 Lab Statement: Any lab studies that have been ordered have been reviewed, and results considered in the medical decision making process. Headache Course/Dx - Course Course Of Treatment: Patient presenting with any headache and recent dizziness. She also has cough and sinus congestion. Blood pressure initially elevated. Chest afebrile with stable vital signs. Patient is no neurological deficits on exam. Dizziness has resolved. We'll obtain labs, head CT and cardiac workup. Patient started IV fluids and given a dose of Tylenol. Labs are unremarkable including negative urine flu. Chest x-ray and head CT negative for acute findings, reading per radiology. On reexamination patient is resting comfortably and states she is feeling better after medication. Normal orthostatic vitals. Patient related around the ER without dizziness or ataxia. Patient requesting be discharged home. Feel her symptoms are most likely secondary to sinusitis. We'll have patient continue clindamycin. We'll add Flonase nasal spray as well as a short course of steroids. Patient to call her family doctor today for close follow-up appointment. To return to the ER if symptoms change or worsen. Patient understands and agrees with plan. - Diagnoses Differential Diagnosis/HQI/PQRI: CVA, TIA, Epidural Hematoma, Subdural Hematoma , Meningitis, Migraine, Subarachnoid Hemorrhage, Tension Headache, Viral Syndrome Provider Diagnoses: Sinusitis, Headache Discharge - Sign-Out/Discharge Documenting (check all that apply): Patient Departure - Discharge Plan Condition: Improved Disposition: HOME Prescriptions: Fluticasone NASAL SPRAY 50MCG* [Flonase NASAL SPRAY 50MCG*] 2 spray BOTH NARES DAILY #1 btl predniSONE TAB* [Deltasone 20 MG TAB*] 40 mg PO DAILY #10 tab Patient Education Materials: Sinusitis (ED), Acute Headache (ED) Referrals: Misha Ibrahim MD [Primary Care Provider] - Additional Instructions: Schedule a close follow up appointment with your PCP Continue antibiotic as directed Take new medications as prescribed Increase fluids Tylenol for pain as directed Return to ER if symptoms change or worsen - Billing Disposition and Condition Condition: IMPROVED Disposition: Home - Attestation Statements Provider Attestation: I was available for consult. This patient was seen by the CASPER. The patient was not presented to, seen by, or examined by me. -Alex
[2018-07-08 09:29] LABS: Urine Appearance Clear; Urine Bilirubin Negative (Negative); Urine Blood Negative (Negative); Urine Color Yellow; Urine Glucose Negative (Negative); Urine Ketones Negative (Negative); Urine Nitrite Negative (Negative); Urine Protein Negative (Negative); Urine Specific Gravity 1.016 (1.010-1.030); Urine Urobilinogen Negative (Negative)
[2018-07-08 11:23] VITALS: BP 132/86
== END 2018-07-08 11:23 | disposition home or self-care (01) ==
LOC: ED 07:53
DX: J32.9 Chronic sinusitis, unspecified (principal); R51 Headache; Z88.3 Allergy status to other anti-infective agents; Z88.0 Allergy status to penicillin; Z88.8 Allergy status to other drugs, medicaments and biological substances
CPT/HCPCS: 36415; 70450; 71045; 80053; 81003; 83605; 84484; 85025; 86140; 93005; 96360; 99284; A9270-GY

== ENCOUNTER 2019-01-16 06:26 | Day surgery (SDC) | payer MEDICARE ==
--- NOTE | 2019-01-05 19:24 | HP ---
CC: Dr. Ibrahim; Dr. Omayra Ybarra * ADMISSION HISTORY AND PHYSICAL: DATE OF ADMISSION: 01/16/19 ATTENDING SURGEON: Bee Fernandes MD * (CHRIS Chowdary, dictating) CHIEF COMPLAINT: Right breast cancer. HISTORY OF PRESENT ILLNESS: This is a 78-year-old female with past history of left breast cancer who underwent mammography on 11/21/18 for main complaint of left breast pain. She states that the left breast pain had been present for approximately a year. This was her first mammogram since 2013 because she felt she did not need them any longer. On the most recent study, a new density was noted in the upper outer quadrant of the right breast measuring 0.9 x 0.7 cm. This was confirmed by ultrasound the same date showing a lobulated mass at the 10 o'clock position measuring 0.9 x 0.6 x 0.7 cm. There was an additional hypoechoic nodule noted at the 11 o'clock position. Subsequent biopsy of both lesions in the right breast on 12/02/18 showed invasive carcinoma in the 10 o'clock position. The other lesion was benign. 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 She had one sentinel lymph node removed which was negative for malignancy. She completed radiation therapy but no additional hormonal or chemotherapy. Her family history is significant for breast cancer in both of her sisters and her mother apparently diagnosed in her 50s though lived to be 93. She states that her mother also had ovarian cancer, though the details are not clear. She has been seen by Dr. Ybarra who did order genetic testing, which is still pending. The patient understands that the results of the testing may prompt a change in recommendation for surgery. She was seen by Dr. Fernandes on . Examination at that time showed scarring in the left upper outer quadrant related to prior surgery and postradiation peau d'orange on the left, but otherwise no skin dimpling or nipple retraction (postsurgical changes noted in the left breast on mammography were stable from prior images). There are no discrete masses in the left breast. Right breast exam revealed no discrete masses. There was no cervical, supraclavicular, or axillary lymphadenopathy. Dr. Fernandes discussed with her the indications for surgery as well as the risks, benefits, and alternatives. She is in agreement to proceed as scheduled with excision of right breast cancer (following needle localization ) and sentinel lymph node biopsy. PAST MEDICAL HISTORY: 1. Breast cancer as noted above. 2. Hypertension. 3. Stroke in 1999 with a PFO noted on ACACIA. She has been maintained on aspirin therapy since then. 4. Polymyalgia rheumatica. 5. Fibromyalgia. 6. GERD. PAST SURGICAL HISTORY: Include: 1. Left breast surgery as noted above. 2. JASMIN with BSO remotely for benign disease. 3. Laparoscopic cholecystectomy. 4. Bilateral total hip arthroplasty. 5. Bilateral total knee arthroplasty. 6. She is also status post bilateral cataract extractions. CURRENT MEDICATIONS: 1. Verapamil 240 mg once daily. 2. Trazodone 50 mg q.h.s. p.r.n. insomnia. 3. Omeprazole 40 mg once daily. 4. Aspirin 81 mg once daily (she will continue perioperatively). 5. Indapamide 2.5 mg once daily. 6. Spironolactone 25 mg once daily. 7. Culturelle 1 capsule once daily. 8. Prednisone 7 mg once daily 9. Naproxen 500 mg b.i.d. p.r.n. (does not use daily). DRUG ALLERGIES: PENICILLIN (hives), STATINS (rash), BETADINE, SURGICAL SCRUB ( rash), NIACIN (flushing). FAMILY HISTORY: As noted above. No known history of anesthesia problems, bleeding or clotting disorders. SOCIAL HISTORY: The patient lives alone. She does have a local support network. Her 2 sisters are both living. 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 She denies use of tobacco, alcohol, or recreational drugs. REVIEW OF SYSTEMS: General: No recent constitutional symptoms or acute illnesses other than described above (she states that she has lost about 18 pounds intentionally over the past 6 months). HEENT: She has bilateral hearing aids, which she feels need to be updated. No other acute problems reported. Cardiovascular: No recent problems with chest pain, palpitations, syncope, or shortness of breath (she did undergo prior workup both after her stroke and her dyspnea with catheterization in 2016 showing an 80% occlusion of a D2 branch. She also has some pulmonary valve insufficiency). Respiratory: No recent shortness of breath or chronic cough. GI: No problems reported. I did not ask her when her last colonoscopy had been. No symptoms reported other than GERD, which is controlled with her current omeprazole. : No problems reported. Endocrine: No diabetes or thyroid dysfunction. Musculoskeletal: Osteoarthritis status post joint replacements as noted. PHYSICAL EXAMINATION GENERAL: Well-nourished, obese female, in no acute distress. VITAL SIGNS: Height 5 feet 2 inches, weight 201 pounds, temperature 99, blood pressure 150/84, pulse 76, respirations 18. HEENT: Bilateral hearing aids. She is somewhat hard of hoang. Pupils equal and round, reactive. EOMs intact. No conjunctival pallor. Oropharynx: Teeth in good repair. No intraoral lesions. NECK: No lymphadenopathy in the cervical or supraclavicular regions. No thyromegaly or masses. LUNGS: Clear to auscultation. No rales or wheezes. HEART: Regular rate and rhythm. No murmur appreciated. BREASTS: Not reexamined. See above for Dr. Fernandes's exam. ABDOMEN: Well healed surgical scars. Soft, nontender to palpation. No palpable masses or organomegaly. GENITALIA: Not done. RECTAL: Not done. BACK: No spinous process or CVA tenderness. EXTREMITIES: No edema. NEUROLOGICAL: Grossly intact. SKIN: Warm and dry. No suspicious rashes or lesions noted. IMPRESSION: Right breast cancer. PLAN: Excision of right breast cancer (after needle localization); sentinel lymph node biopsy. CHRIS CHOWDARY [id number]/[facility] #: [id number] [facility] HEALTH PARTNERSManuela
[~2019-01-16 06:26] MED LIST changes: -Buffered Lidocaine 0.9% SYRIN* 5 ML/SYR SYRINGE INTRADERM ONE; +Buffered Lidocaine 1% SYRIN* 1 ML/SYRINGE INTRADERM ONE; +Lactated Ringers 1000 ML Bag* 1,000 ML IV SCH
[2019-01-16] MEDS ORDERED: Lidocaine 2.5%/Prilocain 2.5%* 5 GM TUBE ONE (06:56)
[2019-01-16] MEDS ORDERED: Clindamycin 900 MG IVPREMIX(* 900 MG/50 ML SDV IV ONE (06:57)
[2019-01-16] MEDS ORDERED: Buffered Lidocaine 1% SYRIN* 1 ML/SYRINGE INTRADERM ONE (06:57)
[2019-01-16] MEDS ORDERED: Heparin VIAL(*) 5000 UNITS/ML VIAL (FIVE THOUSAND) ONE (11:46)
[2019-01-16] MEDS ORDERED: Propofol* 10 MG/ML 20 ML BTL ONE ×3 (13:34→15:38)
[2019-01-16] MEDS ORDERED: Lidocaine 2% PF * 5 ML VIAL ONE (13:35)
[2019-01-16] MEDS ORDERED: Midazolam* 1 MG/ML 2 ML VIAL (2 MG) ONE (13:45)
[2019-01-16] MEDS ORDERED: Lidocaine 1% INJ* 10 MG/ML 30 ML SDV ONE (14:55)
[2019-01-16] MEDS ORDERED: Bupivacaine 0.5% W/EPI SDV* 30 ML VIAL ONE (14:55)
[2019-01-16] MEDS ORDERED: fentaNYL* 50 MCG/ML 2 ML VIAL (100 MCG VIAL) ONE (15:26)
[2019-01-16] MEDS ORDERED: Naloxone* 0.4 MG/ML 1 ML VIAL IV PRN (15:41)
[2019-01-16] MEDS ORDERED: Ondansetron ODT TAB* 4 MG PO PRN (15:41)
[2019-01-16] MEDS ORDERED: oxyCODONE TAB* 5 MG TAB PO PRN (15:41)
[2019-01-16] MEDS ORDERED: HYDROmorphone INJ1* 1 MG/ML SYRINGE IV PRN (15:41)
[2019-01-16] MEDS ORDERED: Acetaminophen TAB* 325 MG PO PRN (15:41)
--- NOTE | 2019-01-16 16:38 | BRIEFOPN ---
Brief Operative Note - Surgery Procedures: Procedures CLOSED ENDOSCOPIC BIOPSY OF LARGE INTESTINE (12/04/13) ENDOSC POLYPECTOMY OF LG INTEST (12/04/13) ESOPHAGOGASTRODUODENOSCOPY [EGD] W/CLOSED BIOPSY (08/03/98) EXC LES SOFT TISSUE NEC (04/27/14) LAPAROSCOP LYSIS-PERITONEAL ADHES (06/09/99) LAPAROSCOPIC CHOLECYSTECTOMY (06/09/99) OTHER ENDOSCOPY OF SM INTEST (05/16/99) REPLACE L HIP JT W CERAMIC ON POLY, UNCEMENT, OPEN (01/02/18) SPINAL CANAL EXPLOR NEC (04/27/14) SPINAL CANAL INJECT NEC (04/12/14) TOTAL KNEE REPLACEMENT (03/22/15) 01/16/19 Op Note (dictated) Pre-op dx: right breast cancer Post-op dx: same Procedure: needle localization excision right breast cancer and sentinel lymph node biopsy Surgeon: Dom Asst: none Anesth: local-MAC EBL: 5 cc SCDs on during procedure Abx: given pre-op Pt. tolerated procedure well and was transferred to in a stable condition. CLFoster
[2019-01-16] MEDS ORDERED: HYDROcodone/ACETAMIN 5-325 MG* 1 TAB PO PRN ×2 (16:39)
[2019-01-16] MEDS ORDERED: oxyCODONE TAB* 5 MG TAB ONE (17:02)
[2019-01-16] MEDS ORDERED: Acetaminophen TAB* 325 MG ONE (17:02)
[2019-01-16 17:47] VITALS: BP 162/96
--- NOTE | 2019-01-16 18:46 | OP ---
CC: Dr. Misha Ibrahim; [facility] * DATE OF OPERATION: 01/16/19 - [facility] DATE OF : 42 SURGEON: Bee Fernandes MD MEDICAL RECORD CLERK: There was no advertising sales assistant for this case. PRE-OP DIAGNOSIS: Right breast cancer. POST-OP DIAGNOSIS: Right breast cancer. OPERATIVE PROCEDURE: Needle localization and excision of right breast cancer and sentinel lymph node biopsy. INDICATIONS: Ms. Boucher is a 78-year-old woman with a history of breast cancer some years ago, who has presented with anew right breast cancer prompting the plan for surgical intervention. On the morning of surgery, she underwent needle localization and sentinel lymph node localization without difficulty. DESCRIPTION OF PROCEDURE: She was then brought to the operating room, placed on the OR table in the supine position and given IV sedation. The right breast was prepped and draped in the usual sterile fashion taking care not to dislodge the localizing wire. After infiltrating with local anesthetic, a curvilinear elliptical incision encompassing the wire was made and subcutaneous tissue was divided with electrocautery to excise the mass of tissue from around the wire. This was removed from the breast and handed off as a specimen with the usual markings; however, it was recognized that the tip of the wire was visible at the depth of the excision, so additional tissue was removed from posterolateral to the original specimen. This was also marked in the usual fashion and handed off. The report eventually came back from Radiology that the abnormality that contained the cancer appeared to be in part in both specimens. Hemostasis was then assured with electrocautery and once this was adequate, attention was turned to the axilla. Since this incision was located in the upper outer quadrant pretty close to the axilla, the decision was made to proceed with looking for the sentinel node through the breast incisions. The edge of the pectoralis muscle was incised with electrocautery and the tissue swept posteriorly. This exposed the axillary fat pad. Using the navigator, a radioactive node was identified in the axillary fat pad and dissected free from surrounding tissue. Its in situ counts were around 1800, its ex vivo counts around 1900, and the axillary bed counts were 3 confirming that this was the 1 sentinel node. Again, hemostasis was achieved with electrocautery. The wound was irrigated copiously with saline. The cavity was marked in the usual fashion with clips and then closure was accomplished after instilling a small amount of additional local. A 3-0 Vicryl was used to reapproximate the subcutaneous tissue and the skin was closed with 4-0 Prolene in a subcuticular fashion. Steri-Strips and a dry sterile dressing were applied. All sponge and instrument counts were correct. The patient tolerated the procedure well and was transferred to Recovery in a stable condition. [id number]/[facility] #: [id number] MTDManuela
== END 2019-01-16 17:45 | disposition home or self-care (01) ==
LOC: SDS 06:26
PROVIDERS: ATTEND Surgery
DX: C50.911 Malignant neoplasm of unspecified site of right female breast (principal); I10 Essential (primary) hypertension; M35.3 Polymyalgia rheumatica; Z86.73 Personal history of transient ischemic attack (TIA), and cerebral infarction without residual deficits; Z79.82 Long term (current) use of aspirin; Q21.1 Atrial septal defect; Z80.3 Family history of malignant neoplasm of breast; M79.7 Fibromyalgia
CPT/HCPCS: 77061; 78195; 88307; 88342; 88360; A9270-GY; A9541; G0279; J1644; J2250; J2704; J3010

== ENCOUNTER 2019-02-06 10:03 | Day surgery (SDC) | payer MEDICARE ==
[~2019-02-06 10:03] MED LIST changes: +Dexamethasone IV* 4 MG/ML 1 ML (4 MG) ONE; +Famotidine IV* 10 MG/ML 2 ML (20 mg) IV ONE; +Lidocaine 2% PF * 5 ML VIAL ONE; +Midazolam* 1 MG/ML 2 ML VIAL (2 MG) ONE; +Ondansetron INJ* 2 MG/ML VIAL ONE; +Propofol* 10 MG/ML 20 ML BTL ONE; +fentaNYL* 50 MCG/ML 2 ML VIAL (100 MCG VIAL) ONE
[2019-02-06] MEDS ORDERED: Famotidine IV* 10 MG/ML 2 ML (20 mg) ONE (10:21)
[2019-02-06] MEDS ORDERED: Clindamycin 900 MG IVPREMIX(* 900 MG/50 ML SDV IV ONE (10:21)
[2019-02-06] MEDS ORDERED: fentaNYL* 50 MCG/ML 2 ML VIAL (100 MCG VIAL) ONE (10:42)
[2019-02-06] MEDS ORDERED: Bupivacaine 0.5% W/EPI SDV* 30 ML VIAL ONE (11:07)
[2019-02-06] MEDS ORDERED: Lidocaine 1% INJ* 10 MG/ML 30 ML SDV ONE (11:07)
[2019-02-06] MEDS ORDERED: Bupivacaine 0.5%* 50 ML VIAL ONE (11:08)
[2019-02-06] MEDS ORDERED: Acetaminophen IV 1GM/100ML * 1,000 MG/100 ML VIAL IVPB ONE (11:36)
[2019-02-06] MEDS ORDERED: Naloxone* 0.4 MG/ML 1 ML VIAL IV PRN (11:36)
[2019-02-06] MEDS ORDERED: Ondansetron INJ* 2 MG/ML VIAL IV PRN (11:36)
--- NOTE | 2019-02-06 12:52 | BRIEFOPN ---
Brief Operative Note - Surgery Procedures: Procedures CLOSED ENDOSCOPIC BIOPSY OF LARGE INTESTINE (12/04/13) ENDOSC POLYPECTOMY OF LG INTEST (12/04/13) ESOPHAGOGASTRODUODENOSCOPY [EGD] W/CLOSED BIOPSY (08/03/98) EXC LES SOFT TISSUE NEC (04/27/14) LAPAROSCOP LYSIS-PERITONEAL ADHES (06/09/99) LAPAROSCOPIC CHOLECYSTECTOMY (06/09/99) OTHER ENDOSCOPY OF SM INTEST (05/16/99) REPLACE L HIP JT W CERAMIC ON POLY, UNCEMENT, OPEN (01/02/18) SPINAL CANAL EXPLOR NEC (04/27/14) SPINAL CANAL INJECT NEC (04/12/14) TOTAL KNEE REPLACEMENT (03/22/15) 02/06/19 Op Note (dictated) Pre-op dx: right breast cancer Post-op dx: same Procedure: wide re-excision right breast cancer Surgeon: Dom Asst: ARAVIND Arias Anesth: local-MAC EBL: 5 cc complications: none SCDs on during surgery Abx: given pre-op Pt. tolerated procedure well and was transferred to in a stable condition CLFoster
--- NOTE | 2019-02-06 13:17 | OP ---
CC: Dr. Misha Ibrahim; [facility] * DATE OF OPERATION: 02/06/19 - [facility] DATE OF : 42 SURGEON: Bee Fernandes MD SOCIAL WORKER DELINQUENCY PREVENTION: CHRIS Arias student. PRE-OP DIAGNOSIS: Right breast cancer. POST-OP DIAGNOSIS: Right breast cancer. OPERATIVE PROCEDURE: Wide reexcision of right breast cancer. INDICATIONS: Ms. Boucher is a 78-year-old woman, recently diagnosed with breast cancer, who underwent a needle localization, excision of her breast cancer and sentinel lymph node biopsy in the recent past. She was then found to have a positive margin with DCIS prompting the plan for wide reexcision. DESCRIPTION OF PROCEDURE: She was brought to the operating room, placed on the OR table in the supine position and given IV sedation. The right breast was prepped and draped in the usual sterile fashion. After infiltrating with local anesthetic, a curvilinear elliptical incision encompassing the previous scar was made. Subcutaneous tissue was then divided with electrocautery to excise tissue from around the previous cavity particularly the medial extending to the posterior aspect. This included some superior and some inferior tissue as well. Once the specimen was out, it was marked in the usual fashion and handed off. Hemostasis was then assured with electrocautery and once this appeared adequate, the wound was irrigated with saline. Then, additional local was instilled into the wound. Closure was then accomplished with 3-0 Vicryl in the subcutaneous layer. The skin was closed with 4-0 Prolene in a subcuticular fashion. Steri-Strips and a dry sterile dressing were applied. All sponge and instrument counts were correct. The patient tolerated the procedure well and was transferred to Recovery in a stable condition. [id number]/[facility] #: [id number] [facility]
[2019-02-06 14:01] VITALS: BP 141/86
== END 2019-02-06 14:00 | disposition home or self-care (01) ==
LOC: OR 10:03
PROVIDERS: ATTEND Surgery
DX: C50.911 Malignant neoplasm of unspecified site of right female breast (principal); Z88.0 Allergy status to penicillin; Z88.8 Allergy status to other drugs, medicaments and biological substances; K21.9 Gastro-esophageal reflux disease without esophagitis; M19.90 Unspecified osteoarthritis, unspecified site; M35.3 Polymyalgia rheumatica; I50.9 Heart failure, unspecified; I10 Essential (primary) hypertension; R60.0 Localized edema
CPT/HCPCS: 88307; J1100; J2250; J2405; J2704; J3010; J3490

== ENCOUNTER 2019-07-19 14:52 | Inpatient (IN) | payer MEDICARE ==
--- NOTE | 2019-07-19 15:11 | ED ---
HPI Chest Pain - HPI Summary HPI Summary: Patient is a 78 y/o F presenting to [facility] for a chief complaint of chest pain that radiates to the bilateral arms for the last 1 hours. Patient is present with her . Patient states that she came home from worship and was changing her clothes when she began to feel a pressure sensation in her chest. The chest pain has since improved, but the pain in her bilateral arms is still present. She also notes shortness of breath for the last few weeks and fatigue. Patient denies palpitations, numbness, or paresthesia. She denies any aggravating factors. Patient admits stopping one of her medications 2 weeks ago. PMHx is significant for breast cancer and HTN, but she denies blood clots, DM, OK, or atrial fibrillation. PSHx is significant for a lumpectomy in the left breast 5 years ago and a right breast surgery in February 2019. FMHx is significant for cardiac disease in her father. Patient denies taking blood thinners. She has an oncologist, Dr. Swann, but has not had a follow up appointment. Dr. Ibrahim is her PCP. - History of Current Complaint Chief Complaint: EDChestPainROMI Hx Obtained From: Patient Onset/Duration: Started Hours Ago - 1 1/2 hours ago, Atraumatic, Still Present Timing: Lasting Hours - 1 1/2 hours ago Initial Severity: Severe Current Severity: Mild Pain Intensity: 6 Pain Scale Used: 0-10 Numeric Chest Pain Radiates: Yes Chest Pain Radiates To:: Arm - Bilateral Character: Pressure/Squeezing Aggravating Factor(s): Nothing Alleviating Factor(s): Spontaneous Resolution Associated Signs and Symptoms: Positive: Chest Pain, Shortness of Breath. Negative: Numbness, Tingling, Palpitations - Additional Pertinent History Primary Care Physician: [id number] - Allergy/Home Medications Allergies/Adverse Reactions: Allergies Allergy/AdvReac Type Severity Reaction Status Date / Time iodine Allergy Intermediate Rash Verified 02/06/19 10:44 niacin Allergy Intermediate Rash Verified 02/06/19 10:44 Penicillins Allergy Intermediate Hives Verified 02/06/19 10:44 povidone-iodine Allergy Intermediate Rash Verified 02/06/19 10:44 [From Betadine] soap [From Betadine] Allergy Intermediate Rash Verified 02/06/19 10:44 [id number]-[id number] Reductase AdvReac Intermediate Muscle Ache Verified 02/06/19 10: 44 Inhibitor PMH/Surg Hx/FS Hx/Imm Hx Previously Healthy: Yes Endocrine/Hematology History: Denies: Hx Diabetes Cardiovascular History: Reports: Hx Hypertension, Hx Rheumatic Fever - childhood , Other Cardiovascular Problems/Disorders - HX STROKE 2007, HX BLOOD CLOT Denies: Hx Congestive Heart Failure, Hx Pacemaker/ICD GI History: Reports: Hx Gall Bladder Disease - removed 2000, Hx Gastroesophageal Reflux Disease - ON MEDS, Hx Ulcer - STOMACH 20+ YEARS AGO Denies: Other GI Disorders History: Denies: Hx Dialysis, Hx Renal Disease Musculoskeletal History: Reports: Hx Arthritis, Hx Back Problems, Other Musculoskeletal History - fibromyalgia Sensory History: Reports: Hx Cataracts, Hx Contacts or Glasses - glasses, Hx Hearing Aid - both ears, Hx Hearing Problem Denies: Hx Legally Blind, Hx Deafness Opthamlomology History: Reports: Hx Cataracts, Hx Contacts or Glasses - glasses Denies: Hx Legally Blind EENT History: Denies: Hx Deafness Neurological History: Reports: Hx Nerve Disease, Other Neuro Impairments/ Disorders - FIBROMYALGIA Psychiatric History: Denies: Hx Anxiety, Hx Depression, Hx Panic Disorder - Cancer History Cancer Type, Location and Year: BREAST Hx Chemotherapy: No - 15 radiation tx with left breast Hx Radiation Therapy: Yes - Surgical History Surgical History: Yes Surgery Procedure, Year, and Place: Lsp surgery 04/2014. Left knee replacement. right knee replacement. Right hip replacement. left hip replacement. Left breast cancer, surgery x2, one lymph node removed. Perforated ulcer. total hysterectomy. right breast surgery 2018 Hx Anesthesia Reactions: No - see above note - Immunization History Date of Tetanus Vaccine: Up to date Date of Influenza Vaccine: Fall 2011 Infectious Disease History: No Infectious Disease History: Denies: Traveled Outside the [place] in Last 30 Days - Family History Known Family History: Positive: Cardiac Disease Family History: Lupus - Social History Occupation: Retired Lives: With Family Alcohol Use: Rare Alcohol Amount: 2 DRINKS A YEAR Hx Substance Use: No Substance Use Type: Reports: None Hx Tobacco Use: No Smoking Status (MU): Never Smoked Tobacco Review of Systems Positive: Fatigue Positive: Chest Pain. Negative: Palpitations Positive: Shortness Of Breath Positive: Myalgia - Bilateral arms that radiates from the chest Negative: Paresthesia, Numbness All Other Systems Reviewed And Are Negative: Yes Physical Exam - Summary Physical Exam Summary: Constitutional: Well-developed, Well-nourished, Alert. (-) Distressed Skin: Warm, Dry. Old scar to the left breast. HENT: Normocephalic; Atraumatic Eyes: Conjunctiva normal Neck: Musculoskeletal ROM normal neck. (-) JVD, (-) Stridor, (-) Nuchal rigidity Cardio: Rhythm irregularly irregular, tachycardia, Heart sounds normal; Intact distal pulses; Radial pulses are 2+ and symmetric. (-) Murmur Pulmonary/Chest wall: Effort normal. (-) Respiratory distress, (-) Wheezes, (-) Rales Abd: Soft, (-) tenderness, (-) Distension, (-) Guarding, (-) Rebound Musculoskeletal: (-) Edema Lymph: (-) Cervical adenopathy Neuro: Alert, Oriented x3 Psych: Mood and affect Normal Triage Information Reviewed: Yes Vital Signs On Initial Exam: Initial Vitals Temp Pulse Resp BP Pulse Ox 97.2 F 71 20 159/112 99 07/19/19 15:00 07/19/19 15:00 07/19/19 15:00 07/19/19 15:00 07/19/19 15:00 Vital Signs Reviewed: Yes Procedures - Sedation Patient Received Moderate/Deep Sedation with Procedure: No Diagnostics - Vital Signs Vital Signs Temp Pulse Resp BP Pulse Ox 07/19/19 15:00 97.2 F 71 20 159/112 99 - Laboratory Result Diagrams: 07/19/19 15:16 07/19/19 15:16 Lab Statement: Any lab studies that have been ordered have been reviewed, and results considered in the medical decision making process. - Radiology Chest X-ray Radiology Interpretation Completed By: Radiologist Summary of Radiographic Findings: Chest X-ray IMPRESSION: No radiographic evidence of acute cardiopulmonary disease. Reviewed by Dr. Flores. - CT Chest CT Summary of CT Findings: Chest CT not performed due to allergy to iodine contrast. - EKG 14:55 Cardiac Rate: Other Rate - 110 BPM EKG Rhythm: Atrial Fibrillation ST Segment: Normal Ectopy: None Summary of EKG Findings: An EKG at 14:55 reveals atrial fibrillation with 110 BPM, nml axis, nml intervals. No STEMI. No acute changes. Reviewed and interpreted by Dr. Flores. Re-Evaluation - Re-Evaluation First Eval Re-Evaluation Time: 15:52 Change: Unchanged Comment: At 15:52, patient reports an allergy to iodine so I will order a VQ scan. Second Eval Re-Evaluation Time: 16:37 Change: Unchanged Comment: At 16:37, patient agrees with the plan for admission. Chest Pain Course/Dx - Course Course Of Treatment: 78-year-old female with a history of breast cancer status post lumpectomy not on current treatment, presenting with chest pain found to have A. fib with RVR. - Vital signs notable for tachycardia, hypertension. Patient is given diltiazem IV with rate in the 80s, given PO dilt. Labs notable for normal troponin. Elevated d-dimer, given history of cancer concerning for PE. Unable to get a CT scan secondary to IV contrast allergy, plan for VQ scan versus CT after pretreatment. chest x-ray did not show any evidence of mediastinal widening to sugget dissection or other abnormalities. Heart score: 5. Admit to hospital for further workup of chest pain, dyspnea and new A. fib - Diagnoses Provider Diagnoses: Chest pain, Atrial fibrillation - Provider Notifications Discussed Care Of Patient With: Tara Omer - At 16:34, Dr. Tara Omer reviewed the patients case and agrees to admit the patient to [facility] with a diagnosis of chest pain and atrial fibrillation. Time Discussed With Above Provider: 16:34 Instructed by Provider To: Admit As Inpatient Discharge ED - Sign-Out/Discharge Documenting (check all that apply): Patient Departure - Admit - Discharge Plan Condition: Stable Disposition: ADMITTED TO [facility] - Billing Disposition and Condition Condition: STABLE Disposition: Admitted to [facility] - Attestation Statements Document Initiated by Shantel: Yes Documenting Scribe: Luma Veras Provider For Whom Shantel is Documenting (Include Credential): MD Samuel Nashibe Attestation: I, Luma Veras, scribed for Melodie Flores MD on 07/19/19 at [id number]. Scribe Documentation Reviewed: Yes Provider Attestation: The documentation as recorded by the Luma parker accurately reflects the service I personally performed and the decisions made by me, Melodie Flores MD Status of Scribe Document: Viewed
[2019-07-19] MEDS ORDERED: Diltiazem IV push/loading dose 5 MG/ML 5 ML vial (25 mg) IV SLOW PU ONE (15:17)
[2019-07-19 15:24] LABS: ABS Basophils 0.1 10^3/ul (0-0.2); ABS Eosinophils 0.2 10^3/ul (0-0.6); ABS Lymphocytes 2.7 10^3/ul (1.0-4.8); ABS Monocytes 0.8 10^3/ul (0-0.8); ABS Neutrophils 7.8 10^3/ul (1.5-7.7); Eosinophil % 1.5 %; Hematocrit 44 % (35-47); Hemoglobin 15.1 g/dL (12.0-16.0); Lymphocyte % 22.9 %; Mean Corpuscular HGB Conc 34 g/dL (31-36); Mean Corpuscular Hemoglobin 32 pg (27-31); Mean Corpuscular Volume 95 fL (80-97); Mean Platelet Volume 7.7 fL (7.4-10.4); Platelet Count 310 10^3/uL (150-450); Red Blood Count 4.66 10^6 /uL (3.70-4.87); Red Cell Distribution Width 16 % (10-15); White Blood Count 11.6 10^3/uL (3.5-10.8)
[2019-07-19 15:31] LABS: INR 1.09 (0.82-1.09)
[2019-07-19 15:43] LABS: ALT 10 U/L (7-52); AST 13 U/L (13-39); Albumin 4.1 g/dL (3.2-5.2); Albumin/Globulin Ratio 1.6 (1-3); Alkaline Phosphatase 52 U/L (34-104); Anion Gap 9 mmol/L (2-11); BUN/Creatinine Ratio 22.7 (8-20); Blood Urea Nitrogen 20 mg/dL (6-24); CO2 Carbon Dioxide 30 mmol/L (22-32); Calcium 9.5 mg/dL (8.6-10.3); Chloride 99 mmol/L (101-111); EGFR African American 75.4 (>60); EGFR Non-African American 62.3 (>60); Globulin 2.5 g/dL (2-4); Glucose 107 mg/dL (70-100); Sodium 138 mmol/L (135-145); Total Protein 6.6 g/dL (6.4-8.9)
[2019-07-19 15:55] LABS: Troponin I 0.03 ng/mL (<0.03)
[2019-07-19] MEDS ORDERED: Diltiazem TAB* 30 MG PO ONE ×2 (15:55→17:41)
[2019-07-19] MEDS ORDERED: Potassium Chlor TAB* 20 MEQ TAB.ER PO ONE ×2 (16:01→20:00)
[2019-07-19] MEDS ORDERED: Aspirin TAB* 325 MG PO ONE (16:09)
[2019-07-19] MEDS ORDERED: Diltiazem TAB* 60 MG PO ONE (17:37)
[2019-07-19 18:29] LABS: Magnesium 1.7 mg/dL (1.9-2.7)
[2019-07-19] MEDS: Metoprolol Succinate XL TAB* 25 MG PO SCH (18:31)
[2019-07-19 19:06] LABS: Troponin I 0.26 ng/mL (<0.03)
[2019-07-19] MEDS: Acetaminophen TAB* 325 MG PO PRN (19:39)
[2019-07-19] MEDS: Enoxaparin(*) 100 MG/ML SYR SUBCUT SCH (19:47)
[2019-07-19] MEDS ORDERED: Magnesium Sulfate 2 GM IV* 2 GM/50 ML BAG IVPB ONE (21:45)
--- NOTE | 2019-07-19 21:56 | HP ---
CC: Dr. Ibrahim* HISTORY AND PHYSICAL: DATE OF ADMISSION: 07/19/19 PROVIDER: Mia Fallon NP. PRIMARY CARE PROVIDER: Dr. Ibrahim. ATTENDING PHYSICIAN WHILE IN THE HOSPITAL: Dr. Tara Omer* (dictated by Mia Fallon NP). CHIEF COMPLAINT: Chest pain, shortness of breath. HISTORY OF PRESENT ILLNESS: Ms. Boucher is a 78-year-old female with past medical history significant for recent breast cancer, hypertension, history of CVA with known PFO, history of polymyalgia rheumatica, GERD, arthritis, anxiety , and hyperlipidemia, who presented to [facility] with complaints of chest pain radiating down bilateral arms and shortness of breath starting at approximately 1 p.m. today. The patient reports that when she got up this morning she was feeling in her normal state of health. She went to [facility]. She does report that she had a cup of tea and at [facility]. Upon returning home, the patient reported that she felt like she had indigestion, developed chest pain that radiated across her chest, down both arms and into her back. The patient reports that she tried to take 2 Tums but had no relief. After 15 minutes, the patient reports that she took a baby aspirin and at home. The patient does report that she did have associated diaphoresis, but no nausea or vomiting. She did report shortness of breath associated with the chest pain. She describes chest pain as aching and a pressure in her chest, aching in the arms. The patient denies any recent cough, congestion, or hemoptysis. She denies any vomiting, diarrhea or abdominal pain, hematuria or dysuria. She denies any focal weakness, sensory loss, visual complaints, dysphagia, arthralgias, myalgias, rashes, lesions, open sores, psychosis, or anxiety. While in the emergency room, the patient had routine lab work drawn and an EKG, which showed atrial fibrillation, which was new for the patient at a rate of 110. She was also found to have an elevated troponin at 0.03. Due to these findings, Hospital Medicine was asked to see and evaluate her for admission. PAST MEDICAL HISTORY: Significant for: 1. History of breast cancer with right and left lumpectomies. 2. Hypertension. 3. History of CVA with known PFO noted on a ACACIA. 4. History of polymyalgia rheumatica. 5. GERD. 6. Arthritis. 7. Anxiety. 8. Hyperlipidemia. PAST SURGICAL HISTORY: 1. Left hip replacement. 2. Bilateral knee replacements. 3. Right hip replacement. 4. Hysterectomy. 5. Cholecystectomy. 6. Lumbar spine. 7. Right and left breast lumpectomies. HOME MEDICATIONS: Include: 1. Prednisone 7 mg p.o. daily. 2. Verapamil 240 mg p.o. daily. 3. Spironolactone 25 mg p.o. daily. 4. Omeprazole 40 mg p.o. daily. 5. Naproxen 1 tablet twice daily as needed for pain, takes rarely. 6. Lozol 2.5 mg p.o. daily. 7. Aspirin 81 mg p.o. daily. ALLERGIES: The patient reports allergies to PENICILLIN, STATINS, BETADINE, and NIACIN. FAMILY HISTORY: Father with a history of PR, at the age of 85. No reported history of diabetes. Cancer in mother with suspected history of breast cancer, at the age 94. SOCIAL HISTORY: The patient denies any tobacco. She reports rare alcohol use. Denies any illicit drug use. 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 She currently resides by herself. She walks with a cane. Surrogate decision maker in the event she is unable to make her own decisions is her son or sister that lives in [place]. She is a full code. REVIEW OF SYSTEMS: A 14-point review of systems was completed, all pertinent positives are mentioned in the HPI. PHYSICAL EXAMINATION GENERAL: At this time, Ms. Boucher is alert and oriented, resting on the stretcher in the emergency room. She is in no acute distress. VITAL SIGNS: Blood pressure 155/77, heart rate 95, respirations 18, O2 saturation 98%, temperature was 97.8. HEENT: Head is atraumatic, normocephalic. Eyes: EOMs are intact. Sclerae anicteric and not pale. Oral mucosa appeared to be moist. NECK: Supple. LUNGS: Clear to auscultation bilaterally. No wheezes, rales, or rhonchi. CARDIAC: S1, S2. Irregular rate and rhythm. No rubs or gallops. ABDOMEN: Soft and nontender. Bowel sounds are present x4. EXTREMITIES: She is able to move all 4 extremities. She has no clubbing or cyanosis. NEUROLOGIC: She is awake, alert, oriented x3. Speech is clear. Thought process is intact. There are no gross focal deficits. SKIN: Intact. LABORATORY DATA AND DIAGNOSTIC STUDIES: WBCs are 11.6, RBCs 4.66, hemoglobin 15.1, hematocrit is 44, platelet count is 310. INR was 1.09. D-dimer was 560. Sodium 138, potassium 3.0, chloride 99, carbon dioxide of 30, anion gap was 9 , BUN was 20, creatinine 0.88. Glucose was 107. Calcium 9.5, magnesium 1.7. AST was 13, ALT was 10, alkaline phosphatase was 52. Troponin was 0.03. Repeat is currently pending. BNP was 34. TSH was 3.46. She had an electrocardiogram that showed atrial fibrillation at a rate of 110, LVH. She had a chest x-ray, radiologist impression: No active cardiopulmonary disease. ASSESSMENT AND PLAN: Ms. Boucher is a 78-year-old female with past medical history significant for a recent diagnosis of breast cancer, status post right lumpectomy, hypertension, history of cerebrovascular accident with known patent foramen ovale, polymyalgia rheumatica, gastroesophageal reflux disease, arthritis, anxiety, and hyperlipidemia, who presented to the emergency room with complaints of chest pain and shortness of breath. She will be admitted under observation for: 1. Chest pain, shortness of breath: I suspect this is related to atrial fibrillation with rapid ventricular response, which the patient was experiencing on admission. The patient did receive Cardizem 10 mg IV in the emergency room, a total of 60 mg p.o. Her rate improved. The patient also reported that her chest pain and shortness of breath subsided after receiving the medications. The patient's initial troponin was 0.03. She did have a full strength aspirin. I will give her metoprolol 25 mg as per recommendations by Cardiology. I have discussed her case with Cardiology, who will see the patient in consultation in the a.m. We will also get a V/Q scan tomorrow to rule out pulmonary embolism. The patient does report that she does get exertional shortness of breath for the past 2 months, but denies any associated chest pain. The patient did have a cardiac catheterization in 2016. At that time, it showed no acute coronary artery disease other than a second diagonal off the LAD with 80% stenosis and a normal LV function. She did have a transthoracic echocardiogram in 2014. At that time, she did have an EF of 40% to 45%. I will repeat a transthoracic echocardiogram on her. I will get a lipid profile. She will have metoprolol, continue baby aspirin at 81 mg p.o. daily, and further recommendations based on Cardiology's recommendation. I would also place her on full-strength Lovenox due to new onset atrial fibrillation and her history of cancer. 2. Hypertension: The patient does have chronic hypertension. She has been hypertensive in the emergency room. Her blood pressure is coming down with the initiation of Cardizem and beta-blockers. I will hold her spironolactone and Lozol as the patient does have hypokalemia and hypomagnesemia. We will continue her metoprolol at this time for controlling her blood pressure as well we can go with hydralazine p.r.n. for systolic blood pressure greater than 180. 3. History of breast cancer: The patient has a recent history of breast cancer with a right lumpectomy in January 2019. The patient was initially followed by Hematology/Oncology, but the patient reports she is refusing a return to Hematology/Oncology. The patient does report that she was receiving tamoxifen prescribed by Dr. Ibrahim, but she reports she recently 1 week ago stopped taking her tamoxifen and is not currently receiving any treatments for her right breast cancer. 4. Gastroesophageal reflux disease: She will continue on omeprazole 40 mg p.o. daily. 5. New onset atrial fibrillation: The patient will be placed on metoprolol 25 mg p.o. daily. We will monitor on telemetry. We will get a transthoracic echocardiogram. She will be seen in consultation by Cardiology. I suspect that this is a component of her symptomatic shortness of breath and chest pain. 6. Elevated troponin: The patient does have a mildly elevated troponin of 0.03. We will continue to trend her troponins and monitor on telemetry overnight. I suspect this is related to an ischemia from her new onset atrial fibrillation. 7. FEN: She can have heart healthy, decaf okay diet. 8. Code status: She is a full code. Initially, the patient reported she wanted to be a DNR. Upon completing the MOLST form, the patient reports that she would like to be a full code. So her code status was changed from DNR to a full code at the patient's request. TIME SPENT: Time spent on this admission was 60 minutes; greater than half that time was spent at the bedside reviewing the events leading thus far to her hospitalization, performing physical exam, and reviewing my plan of care. I have discussed this with my attending, Dr. Tara Omer; she is in agreement with my plan. MIA FALLON, SOAKING TANK WORKER [id number]/CPS #: [id number] [email or web address]
[2019-07-19 22:20] LABS: Troponin I 0.51 ng/mL (<0.03)
[2019-07-20 00:55] LABS: Troponin I 1.23 ng/mL (<0.03)
[2019-07-20 03:23] LABS: Troponin I 2.79 ng/mL (<0.03)
[2019-07-20 06:30] LABS: ABS Basophils 0.1 10^3/ul (0-0.2); ABS Eosinophils 0.2 10^3/ul (0-0.6); ABS Lymphocytes 2.6 10^3/ul (1.0-4.8); ABS Monocytes 0.6 10^3/ul (0-0.8); ABS Neutrophils 5.7 10^3/ul (1.5-7.7); Eosinophil % 1.8 %; Hematocrit 44 % (35-47); Hemoglobin 14.6 g/dL (12.0-16.0); Lymphocyte % 28.1 %; Mean Corpuscular HGB Conc 34 g/dL (31-36); Mean Corpuscular Hemoglobin 32 pg (27-31); Mean Corpuscular Volume 96 fL (80-97); Mean Platelet Volume 8.2 fL (7.4-10.4); Nucleated Red Blood Cells % 0.1; Platelet Count 284 10^3/uL (150-450); Red Blood Count 4.53 10^6 /uL (3.70-4.87); Red Cell Distribution Width 16 % (10-15); White Blood Count 9.3 10^3/uL (3.5-10.8)
[2019-07-20 06:38] LABS: Anion Gap 9 mmol/L (2-11); BUN/Creatinine Ratio 20.5 (8-20); Blood Urea Nitrogen 16 mg/dL (6-24); CO2 Carbon Dioxide 28 mmol/L (22-32); Calcium 9.2 mg/dL (8.6-10.3); Chloride 101 mmol/L (101-111); Cholesterol 215 mg/dL; EGFR African American 86.7 (>60); EGFR Non-African American 71.6 (>60); Glucose 102 mg/dL (70-100); HDL Cholesterol 31.3 mg/dL; LDL Cholesterol 123 mg/dL; Magnesium 2.1 mg/dL (1.9-2.7); Potassium 3.6 mmol/L (3.5-5.0); Sodium 138 mmol/L (135-145); Triglycerides 303 mg/dL
[2019-07-20] MEDS: Aspirin EC TAB* 81 MG TAB.EC PO SCH (08:16)
[2019-07-20] MEDS: Enoxaparin(*) 100 MG/ML SYR SUBCUT SCH (08:16)
[2019-07-20] MEDS: Pantoprazole TAB * 40 MG TAB PO SCH (08:16)
[2019-07-20] MEDS: Metoprolol Succinate XL TAB* 25 MG PO SCH (08:16)
[2019-07-20 09:45] LABS: Troponin I 5.16 ng/mL (<0.03)
[2019-07-20 10:38] LABS: Urine Appearance Cloudy; Urine Bilirubin Negative (Negative); Urine Blood Negative (Negative); Urine Color Yellow; Urine Glucose Negative (Negative); Urine Ketones Trace (Negative); Urine Nitrite Negative (Negative); Urine Protein Negative (Negative); Urine Specific Gravity 1.015 (1.010-1.030); Urine Urobilinogen Negative (Negative)
[2019-07-20 12:34] LABS: Troponin I 4.62 ng/mL (<0.03)
--- NOTE | 2019-07-20 13:49 | PN ---
Subjective Date of Service: 07/20/19 Interval History: HOSPITALIST PROGRESS NOTE Patient seen and examined at bedside. Care reviewed and d/w Efren Brewer RN. She feels better today. Denies CP or palpitations, dyspnea still present, but less intense. Family History: Unchanged from Admission Social History: Unchanged from Admission Past Medical History: Unchanged from Admission Objective Active Medications: Acetaminophen (Tylenol Tab*) 650 mg PO Q4H PRN PRN Reason: MILD PAIN or TEMP > 100.4 Last Admin: 07/19/19 19:39 Dose: 650 mg Aspirin (Aspirin Ec Tab*) 81 mg PO QAM [facility] Last Admin: 07/20/19 08:16 Dose: 81 mg Enoxaparin Sodium (Lovenox(*)) 90 mg SUBCUT Q12H [facility] Last Admin: 07/20/19 08:16 Dose: 90 mg Metoprolol Succinate (Toprol Xl Tab*) 25 mg PO DAILY [facility] Last Admin: 07/20/19 08:16 Dose: 25 mg Pantoprazole Sodium (Protonix Tab*) [facility] Admin: 07/20/19 08:16 Dose: 40 mg Prednisone (Deltasone Tab*) 5 mg PO QAM [facility] Last Admin: 07/20/19 08:16 Dose: 5 mg Prednisone (Deltasone Tab*) 2 mg PO DAILY [facility] Last Admin: 07/20/19 08:15 Dose: 2 mg Vital Signs - 8 hr 07/20/19 07/20/19 07:15 11:15 Temperature 98.4 F 98.5 F Pulse Rate 73 80 Respiratory 20 18 Rate Blood Pressure 131/65 145/82 (mmHg) O2 Sat by Pulse 98 93 Oximetry Oxygen Devices in Use Now: None Appearance: Elderly obese lady sitting up in bed in NAD Eyes: No Scleral Icterus Ears/Nose/Mouth/Throat: Mucous Membranes Moist Neck: Trachea Midline Respiratory: Symmetrical Chest Expansion and Respiratory Effort, Clear to Auscultation Cardiovascular: - - Normal S1 and S2, irregularly irregular Abdominal: NL Sounds; No Tenderness; No Distention Neurological: Alert and Oriented x 3, NL Muscle Strength and Tone Result Diagrams: 07/20/19 06:05 07/20/19 06:05 Assess/Plan/Problems-Billing Assessment: Mrs Boucher is a 78yo F with PMH of breast CA, HTN, HLD, CVA, PMR, GERD, who presented to ED with c/o chest pain and dyspnea, found to have have Afib and NSTEMI. - Patient Problems (1) Afib Comment: - Rate is controlled with Metoprolol. - [id number] is 6 - continue Lovenox. - Awaiting echocardiogram. (2) NSTEMI (non-ST elevated myocardial infarction) Comment: - Troponin peaked at 6. - No further c/o chest pain. - Continue Lovenox, Metoprolol, Aspirin. - Had muscle aches with statins. - Cardiology consult requested. (3) Polymyalgia rheumatica Comment: - Continue prednisone. (4) DVT prophylaxis Comment: - Lovenox. (5) Full code status Status and Disposition: Change to inpatient.
--- NOTE | 2019-07-20 14:02 | ECHO ---
*[facility]* [place] [address] Fax #: [phone] Transthoracic Echocardiogram Patient: Zina Boucher : 1940 Study Date: 07/20/2019 Age: 78 Gender: F HR: 72 bpm Height: 62 in /157.5 cm BSA: 2.05 m^2 Weight: 202.6 lb /92.1 kg BMI: 37.1 kg/m^2 *Film Waxer: Nellie Butler *Referring Physician: * Mia Fallon *Reading Physician: * Jose Wolf MD Indications: SOB. Abnormal EKG. History: PFO. Atrial fibrillation. Cerebrovascular accident. Risk factors: Hypertension. Dyslipidemia. Conclusions Summary: - Left ventricle: The cavity size is normal. Wall thickness is moderately increased. Systolic function is at the lower limits of normal. The estimated ejection fraction is 50-55%. No obvious segmental wall motion noted on fair quality endocardial visualization. - Right ventricle: The cavity size is normal. Systolic function is normal. - Left atrium: The atrium is normal in size. - Right atrium: The atrium is normal in size. - Pulmonic valve: There is moderate regurgitation. - Pulmonary arteries: Systolic pressure can not be accurately estimated. Recommendations: Compared to prior study [facility] 04/2015, left ventricular function previously 45-50% which is similar to current. Study data: Transthoracic echocardiogram. Procedure: Transthoracic echocardiography was performed. Image quality was good. Complete 2D, spectral Doppler, and color flow Doppler. Location: Bedside. Patient status: Inpatient. Patient room number: 444. Findings Left ventricle: The cavity size is normal. Wall thickness is moderately increased. Systolic function is at the lower limits of normal. The estimated ejection fraction is 50-55%. No obvious segmental wall motion noted on fair quality endocardial visualization. Doppler parameters are consistent with abnormal left ventricular relaxation (grade 1 diastolic dysfunction). Right ventricle: The cavity size is normal. Systolic function is normal. Left atrium: The atrium is normal in size. Right atrium: The atrium is normal in size. Mitral valve: The valve is structurally normal. There is no evidence of stenosis. There is trace regurgitation. Aortic valve: The valve is trileaflet. The leaflets are normal thickness. There is no evidence of stenosis. There is no significant regurgitation. Tricuspid valve: The leaflets are normal thickness. There is no evidence of stenosis. There is trace regurgitation. Pulmonic valve: Not well visualized. There is no evidence of stenosis. There is moderate regurgitation. Aorta: The aortic root appears normal. The aortic arch appears normal. Pericardium: There is no significant pericardial effusion. Pulmonary arteries: Systolic pressure can not be accurately estimated. Systemic veins: Inferior vena cava: The vessel is normal in size. Measurements Left ventricle Value Ref Aortic valve continued Value Ref VIJAY, LAX 3.9 cm 3.8 - VTI, S 24.8 cm ---- 5.2 Mean grad, S 3.4 mm Hg ---- ESD, LAX 3.1 cm 2.2 - Peak grad, S 6.5 mm Hg ---- 3.5 LVOT/AV, VTI ratio 0.82 ---- FS, LAX (L) 22 % 45 LIDIA, VTI 2.50 cm^2 ---- PW, ED, LAX (H) 1.4 cm 0.6 - LIDIA, Vmax 2.37 cm^2 ---- 0.9 FS (L) 22 % 45 Mitral valve Value Ref PW, ED (H) 1.4 cm 0.6 - Peak E 0.46 m/sec ---- 0.9 Peak A 0.98 m/sec ---- PW/ID, ED 0.36 -------- Decel time 207 ms ---- E', lat jasbir, TDI (L) 6.0 cm/sec >=10.0 Peak E/A ratio 0.47 ---- E/e', lat jasbir, 8 -------- TDI Pulmonic valve Value Ref Peak v, S 0.82 m/sec ---- LVOT Value Ref Peak grad, S 2.7 mm Hg ---- Diam, S 1.99 cm -------- VT peak v 0.87 m/sec ---- Area 3.1 cm^2 -------- VT grad, ED 3 mm Hg ---- Peak chiqui, S 0.98 m/sec -------- VTI, S 20.3 cm -------- Aortic root Value Ref Peak grad, S 4 mm Hg -------- Root diam 3.5 cm <4.2 Mean grad, S 2 mm Hg -------- Ascending aorta Value Ref Ventricular septum Value Ref AAo AP diam, S 3.2 cm ---- IVS, ED (H) 1.5 cm 0.6 - AAo AP diam/bsa, S 1.5 cm/m^2 ---- 0.9 Aortic arch Value Ref Right ventricle Value Ref Arch diam 2.9 cm ---- VIJAY, LAX 2.9 cm -------- VIJAY major ax, A4C (L) 2.7 cm 5.9 - Decending aorta Value Ref 8.3 Adilene peak chiqui 0.69 m/sec ---- Left atrium Value Ref SI dim, A4C 4.7 cm -------- Vol, ES, 2-p 53 ml -------- Vol/bsa, ES, 2-p 26 ml/m^2 16 - 34 Aortic valve Value Ref Peak v, S 1.27 m/sec -------- Legend: (L) and (H) kristy values outside specified reference range. Prepared and electronically signed by Jose Wolf MD 07/20/2019 14:01
[2019-07-20] MEDS ORDERED: Potassium Chlor TAB* 20 MEQ TAB.ER PO ONE (14:40)
--- NOTE | 2019-07-20 16:04 | CONSULT ---
Subjective Date of Service: 07/20/19 Interval History: Admission Date: 07/19/19 Consult 07/20/2019 Provider: Hospitalist PCP: Dr. Ibrahim CC: Chest pain, dyspnea Reason for consult: Atrial fibrillation, NSTEMI HISTORY OF PRESENT ILLNESS: Ms. Boucher is a 78-year-old woman with a history as below. She had a cardiac catheterization in 2016 that she does not recall. She strongly values medical informed decision making. She was admitted with chest pain radiating down bilateral arms and back and shortness of breath. She was found with new afib that subsequently converted to sinus rhythm spontaneously. She is now back to baseline fatigue level and has had no further chest discomfort. She has had no palpitations or syncope. She rarely takes NSAIDs and stopping this and using tylenol instead would not be an issue. She has statin myalgia listed but she does not recall this. Pmhx: Recurrent breast cancer, on tamixofene, right breast surgery 03/2019 hypertension history of CVA PFO history of polymyalgia rheumatica GERD, arthritis anxiety hyperlipidemia PAST SURGICAL HISTORY: 1. Left hip replacement. 2. Bilateral knee replacements. 3. Right hip replacement. 4. Hysterectomy. 5. Cholecystectomy. 6. Lumbar spine. 7. Right and left breast lumpectomies. HOME MEDICATIONS: Include: 1. Prednisone 7 mg p.o. daily. 2. Verapamil 240 mg p.o. daily. 3. Spironolactone 25 mg p.o. daily. 4. Omeprazole 40 mg p.o. daily. 5. Naproxen 1 tablet twice daily as needed for pain, takes rarely. 6. Lozol 2.5 mg p.o. daily. 7. Aspirin 81 mg p.o. daily. ALLERGIES: The patient reports allergies to PENICILLIN, STATINS, BETADINE, and NIACIN. FAMILY HISTORY: Father with a history of PA, at the age of 85. No reported history of diabetes. Cancer in mother with suspected history of breast cancer, at the age 94. SOCIAL HISTORY: The patient denies any tobacco. She reports rare alcohol use. Denies any illicit drug use. 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 She currently resides by herself. She walks with a cane. Surrogate decision maker in the event she is unable to make her own decisions is her son or sister that lives in [place]. She is a full code. Medications Active Medications: Acetaminophen (Tylenol Tab*) 650 mg PO Q4H PRN PRN Reason: MILD PAIN or TEMP > 100.4 Last Admin: 07/19/19 19:39 Dose: 650 mg Amiodarone HCl (Cordarone Tab*) 400 mg PO DAILY [facility] Apixaban (Eliquis*) 5 mg PO BID [facility] Aspirin (Aspirin Ec Tab*) [facility] Last Admin: 07/20/19 08:16 Dose: 81 mg Metoprolol Succinate (Toprol Xl Tab*) 25 mg PO DAILY [facility] Last Admin: 07/20/19 08:16 Dose: 25 mg Pantoprazole Sodium (Protonix Tab*) 40 mg PO QAM [facility] Last Admin: 07/20/19 08:16 Dose: 40 mg Prednisone (Deltasone Tab*) [facility] [place] Last Admin: 07/20/19 08:16 Dose: 5 mg Prednisone (Deltasone Tab*) 2 mg PO DAILY [facility] Last Admin: 07/20/19 08:15 Dose: 2 mg Home Medications: Omeprazole CAP (NF) [Prilosec CAP* 20 MG] 40 mg PO QAM 03/13/13 [History Confirmed 07/19/19] Spironolactone TAB* [Aldactone TAB 25 MG*] 25 mg PO QAM 03/13/13 [History Confirmed 07/19/19] Indapamide TAB* [Lozol TAB*] 2.5 mg PO QAM 11/16/15 [History Confirmed 07/19/19] Naproxen Sodium [Naproxen 220 mg] 1 tab PO BID PRN 12/25/17 [History Confirmed 07/19/19] Verapamil HCl [Calan Sr] 240 mg PO QAM 12/25/17 [History Confirmed 07/19/19] Culturelle Probiotics Capsule 1 cap PO QAM 07/08/18 [History Confirmed 07/19/19] predniSONE TAB* [Deltasone 20 MG TAB*] 7 mg PO QAM 11/21/18 [History Confirmed 07/19/19] Aspirin [Aspirin EC] 81 mg PO QAM 02/02/19 [History Confirmed 07/19/19] Review of Systems - Measurements Intake and Output: Intake and Output Last 24 Hours 07/18/19 07/19/19 07/20/19 07/21/19 06:59 06:59 06:59 06:59 Intake Total 850 225 Output Total 0 Balance 850 225 Weight 210 lb 3.2 oz Intake: IVPB 50 Oral 800 225 Output: Urine 0 Other: # Voids 1 - Review of Systems Constitutional Symptoms: Negative: Weight Gain, Weight Loss, Fever Dermatology: Negative: Rash, Skin Lesions HEENT: Negative: Change in Hearing, Vertigo Eyes: Negative: Change in Vision, Double Vision Thyroid: Negative: Palpitations, Weight Loss, Weight Gain Pulmonary: Positive: Sputum, Shortness of Breath Negative: Hemoptysis, Wheezing, Asthma, Home Oxygen Cardiology: Positive: Chest Pain, Shortness of Breath Negative: Palpitations, Swelling of Ankles, Peripheral Vascular Dis, Edema, Syncope, Claudication, Paroxysmal Nocturnal Dyspnea, Orthopnea Gastroenterology: Negative: Blood in Stools, Haematemesis Genital - Urinary: Negative: Dysuria, Hematuria Musculoskeletal: Negative: Joint Pain, Joint Stiffness Endocrinology: Negative: Obesity, Polydipsia, Polyuria Hematologic/Lymphatic: Positive: Use of Antiplatelet Drugs Negative: Hx Leukemia, Hx Lymphoma, Use of Anticoagulant Neurology: Positive: Hx of Stroke\TIA Negative: Hx Seizures Psychiatry: Negative: Unusual Anxiety, Suicidal Ideation Allergic/Immunologic: Negative: Hx HIV, Immunocompromise Review of Systems Statement: All other review of systems negative, unless stated above. Objective Vital Signs: Temp Pulse Resp BP Pulse Ox 97.8 F 85 16 150/96 95 07/20/19 15:15 07/20/19 15:15 07/20/19 15:15 07/20/19 15:15 07/20/19 15:15 Oxygen Devices in Use Now: None Appearance: nad, pleasant Ears/Nose/Mouth/Throat: Clear Oropharnyx, Mucous Membranes Moist Neck: NL Appearance and Movements; NL JVP, Trachea Midline Respiratory: Symmetrical Chest Expansion and Respiratory Effort, Clear to Auscultation Cardiovascular: NL Sounds; No Murmurs; No JVD, RRR, No Edema Abdominal: NL Sounds; No Tenderness; No Distention Extremities: No Edema, No Clubbing, Cyanosis Skin: No Rash or Ulcers, No Nodules or Sclerosis, - Neurological: Alert and Oriented x 3 Laboratory Results: 07/20/19 06:05 07/20/19 06:05 INR (Anticoag Therapy) 1.09 (0.82-1.09) 07/19/19 15:16 Total Bilirubin 0.40 mg/dL (0.2-1.0) 07/19/19 15:16 AST 13 U/L (13-39) 07/19/19 15:16 ALT 10 U/L (7-52) 07/19/19 15:16 Alkaline Phosphatase 52 U/L (34-104) 07/19/19 15:16 B-Natriuretic Peptide 34 pg/mL (<=100) 07/19/19 15:17 Total Protein 6.6 g/dL (6.4-8.9) 07/19/19 15:16 Albumin 4.1 g/dL (3.2-5.2) 07/19/19 15:16 Globulin 2.5 g/dL (2-4) 07/19/19 15:16 Albumin/Globulin Ratio 1.6 (1-3) 07/19/19 15:16 Triglycerides 303 mg/dL 07/20/19 06:05 Cholesterol 215 mg/dL 07/20/19 06:05 LDL Cholesterol 123 mg/dL 07/20/19 06:05 HDL Cholesterol 31.3 mg/dL 07/20/19 06:05 TSH 3.46 mcIU/mL (0.34-5.60) 07/19/19 15:17 07/19/19 07/19/19 07/19/19 15:16 18:35 21:33 Troponin I 0.03 H* 0.26 H* 0.51 H* 07/20/19 07/20/19 07/20/19 00:27 02:38 06:05 Troponin I 1.23 H* 2.79 H* 6.00 H* 07/20/19 07/20/19 09:08 12:02 Troponin I 5.16 H* 4.62 H* Diagnostic Imaging: Exam Date: 07/20/19 IMPRESSION: VERY LOW PROBABILITY VQ SCAN Transthoracic Echocardiogram Study Date: 07/20/2019 Conclusions Summary: - Left ventricle: The cavity size is normal. Wall thickness is moderately increased. Systolic function is at the lower limits of normal. The estimated ejection fraction is 50-55%. No obvious segmental wall motion noted on fair quality endocardial visualization. - Right ventricle: The cavity size is normal. Systolic function is normal. - Left atrium: The atrium is normal in size. - Right atrium: The atrium is normal in size. - Pulmonic valve: There is moderate regurgitation. - Pulmonary arteries: Systolic pressure can not be accurately estimated. Recommendations: Compared to prior study frm 04/2015, left ventricular function previously 45-50% which is similar to current. Exam Date: 07/20/19 CHEST PA & LAT 2 VWS IMPRESSION: No active cardiopulmonary disease is noted. Exam Date: 07/08/18 CT BRAIN WO IMPRESSION: NO ACUTE INTRACRANIAL PATHOLOGY. 11/2015 cath indication dyspnea Normal right heart cath 80% ostial d2 lesion EKG Data: 07/19/2019 afib 110 bpm, lvh with repolarization changes repeat nsr 75 bpm, lvh, new twi [id number] Assessment/Plan 1. Acute PA - ? type 1 vs. type 2 secondary to #2 with LVH and known obstructive CAD - Now pain free without hemodynamic instabillity, recurrent chest pain, CHF or ventricular arrhythmias - LVEF 50% 2. Paroxysmal atrial fibrillation 3. CVA 4. HTN with hypertensive heart disease 5. Breast cancer 6. 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 I had along discussion with patient regarding her clinical presentation, arrhythmia, and CAD. We discussed the risks, benefits and alternatives to invasive revascularization. At this point, given patient is asymptomatic and in sinus rhythm, she would opt for medical therapy alone as above. Will arrange cardiology follow up. If patient remains stable, she can be discharged later tomorrow 07/21/2019 from a cardiac standpoint
[2019-07-20] MEDS: Acetaminophen TAB* 325 MG PO PRN (17:29)
[2019-07-20] MEDS: CMCS:Rosuvastatin (NF) 5 MG TAB PO SCH (17:30)
[2019-07-20] MEDS: Spironolactone TAB* 25 MG PO SCH (17:30)
[2019-07-20] MEDS: Amiodarone TAB* 400 MG PO SCH (17:30)
[2019-07-20] MEDS: Indapamide TAB* 2.5 MG PO SCH (18:27)
[2019-07-20] MEDS: Apixaban* 5 MG TAB PO SCH (20:14)
[2019-07-21 06:52] LABS: BUN/Creatinine Ratio 19.5 (8-20); Calcium 9.3 mg/dL (8.6-10.3); EGFR African American 81.8 (>60); EGFR Non-African American 67.6 (>60); Potassium 3.6 mmol/L (3.5-5.0)
[2019-07-21] MEDS: Indapamide TAB* 2.5 MG PO SCH (08:32)
[2019-07-21] MEDS: CMCS:Rosuvastatin (NF) 5 MG TAB PO SCH (08:32)
[2019-07-21] MEDS: Amiodarone TAB* 400 MG PO SCH (08:32)
[2019-07-21] MEDS: Pantoprazole TAB * 40 MG TAB PO SCH (08:32)
[2019-07-21] MEDS: Apixaban* 5 MG TAB PO SCH (08:32)
[2019-07-21] MEDS: Aspirin EC TAB* 81 MG TAB.EC PO SCH (08:32)
[2019-07-21] MEDS: Spironolactone TAB* 25 MG PO SCH (08:32)
[2019-07-21] MEDS ORDERED: Verapamil SR TAB* 240 MG PO SCH (09:00)
[2019-07-21 12:24] VITALS: BP 144/90
--- NOTE | 2019-07-22 05:32 | DS ---
CC: Dr. Ibrahim; Dr. Wolf * DISCHARGE SUMMARY: DATE OF ADMISSION: 07/19/19 DATE OF DISCHARGE: 07/21/19 PRIMARY CARE PROVIDER: Dr. Ibrahim. CONSULTING BOTTOM IRONER: Dr. Wolf. DISCHARGE DIAGNOSES: 1. Non-ST elevation myocardial infarction. 2. Paroxysmal atrial fibrillation. SECONDARY DIAGNOSIS: 1. History of breast cancer, status post right and left lumpectomies. 2. Hypertension. 3. History of cerebrovascular accident with known patent foramen ovale noted on a transesophageal echocardiography. 4. Polymyalgia rheumatica. 5. Gastroesophageal reflux disease. 6. Arthritis. 7. Anxiety. 8. Hyperlipidemia. PAST SURGICAL HISTORY: 1. Status post bilateral hip replacements. 2. Status post bilateral knee replacements. 3. Status post hysterectomy. 4. Status post cholecystectomy. 5. Status post lumbar spine surgery. 6. Status post right and left breast lumpectomies. MEDICATION LIST: 1. Prednisone 7 mg p.o. daily. 2. Verapamil 240 mg p.o. daily. 3. Spironolactone 25 mg p.o. daily. 4. Omeprazole 40 mg p.o. daily. 5. Indapamide 2.5 mg p.o. daily. 6. Probiotics 1 capsule p.o. daily. 7. Aspirin 81 mg p.o. daily. New Medications: 1. Rosuvastatin 5 mg p.o. daily. 2. Apixaban 5 mg p.o. b.i.d. 3. Amiodarone 400 mg p.o. daily. 4. Tylenol 650 mg p.o. q.4 hours p.r.n. pain. Naproxen was discontinued. HOSPITAL COURSE: Ms. Boucher is a 78-year-old female with past medical history as stated above that presented to the emergency room on 07/19/19 with complaints of chest pain, pressure, and shortness of breath. For more details about her presentation, I refer you to her history and physical. In the emergency room, the patient was found to be in atrial fibrillation with rapid ventricular response and she also was found to have troponin elevation, initially 0.03, and it peaked at 6. The patient was admitted for further evaluation and management. A transthoracic echocardiogram was performed and it showed ejection fraction of 50% to 55% with no obvious segmental wall motion noted. The patient was seen in consultation by Cardiology (Dr. Wolf) and his impression was that the patient had an acute NH, but it was unclear to him if she was a type 1 versus type 2 secondary to AFib with LVH and known obstructive coronary artery disease. He recommended continuation of aspirin, discontinuation of NSAID use and use Tylenol as needed for pain. The patient had initially been started on Lovenox for anticoagulation and he switched that to apixaban 5 mg twice a day. He also recommended PPI prophylaxis while on chronic steroids and the patient is already on omeprazole. He recommended resuming indapamide, spironolactone, and to change metoprolol back to her usual verapamil dose. The patient is intolerant of statin but he wants to try 5 mg of Crestor daily and up titrate as outpatient if she can tolerate it. He also felt that the atrial fibrillation may have been the primary issue causing his symptoms, so he recommended adding amiodarone 400 mg p.o. daily without loading dose with plans to down titrate at a followup visit. The patient converted to normal sinus rhythm after resuming amiodarone and she had complete resolution of her symptoms and feels back to her baseline. Dr. Wolf felt that if the patient remains stable, she could be discharged home on 07/21/19. She was able to ambulate around the unit with no chest pressure or shortness of breath and she felt well to be discharged home. She received a referral for visiting neuro services to continue to monitor her as outpatient and she will follow up with Dr. Ibrahim and Dr. Wolf as outpatient. PHYSICAL EXAMINATION: Vital Signs: Temperature 98.1, heart rate is 71, respiratory rate is 16, oxygen saturation is 97% on room air, blood pressure is 144/90. General: The patient is a pleasant, obese lady, sitting up in bed, in no acute distress. CVS: Normal S1, S2. Regular rate and rhythm. Chest: Breath sounds bilaterally with no added sounds. Abdomen is obese. Bowel sounds present. Extremities: No edema. Neuro: She is alert and oriented x3. Able to move all 4 extremities. DIET: Heart healthy diet. Avoid caffeine. ACTIVITIES: As tolerated. DISPOSITION: To home. STATUS IN THE HOSPITAL: Inpatient. CONDITION AT THE TIME OF DISCHARGE: Fair. Please keep in mind this is a summarized version of this patient's hospital stay. If you need more information, please feel free to call me at [phone] or please obtain the full medical records. TIME SPENT: Approximately 45 minutes was spent to complete this discharge. [id number]/[facility] #: [id number] ZAKIA
== END 2019-07-21 12:21 | disposition home or self-care (01) | DRG 281 ==
LOC: ED 14:52 → MEDTELE 17:44 → OBSVTOIN 07-20 16:04
PROVIDERS: ADMIT Nurse Practitioner; ATTEND Internal Medicine
DX: I21.4 Non-ST elevation (NSTEMI) myocardial infarction (principal); Q21.1 Atrial septal defect; C50.911 Malignant neoplasm of unspecified site of right female breast; I48.0 Paroxysmal atrial fibrillation; I10 Essential (primary) hypertension; M35.3 Polymyalgia rheumatica; K21.9 Gastro-esophageal reflux disease without esophagitis; I25.10 Atherosclerotic heart disease of native coronary artery without angina pectoris; E87.6 Hypokalemia; E83.42 Hypomagnesemia; M19.90 Unspecified osteoarthritis, unspecified site; F41.9 Anxiety disorder, unspecified; E78.5 Hyperlipidemia, unspecified; Z96.653 Presence of artificial knee joint, bilateral; Z96.643 Presence of artificial hip joint, bilateral; Z86.73 Personal history of transient ischemic attack (TIA), and cerebral infarction without residual deficits; Z79.82 Long term (current) use of aspirin; Z79.52 Long term (current) use of systemic steroids; Z79.899 Other long term (current) drug therapy; Z88.0 Allergy status to penicillin; Z88.8 Allergy status to other drugs, medicaments and biological substances; Z82.49 Family history of ischemic heart disease and other diseases of the circulatory system; Z80.3 Family history of malignant neoplasm of breast
CPT/HCPCS: 36415; 71046; 78582; 80048; 80053; 80061; 81003; 83735; 83880; 84443; 84484; 85025; 85379; 85610; 93005; 93306; 99284; A9270-GY; A9540; A9558; G0378; J1650; J3475; J7512

== ENCOUNTER 2019-09-15 15:33 | Emergency (ER) | payer MEDICARE ==
--- OUTSIDE RECORDS SUMMARY | 2019-09-15 15:54 | XMS REPORT ---
:1940 Author Organization [facility] Care Team Providers Name Role Phone Unavailable Unavailable Unavailable Problems This patient has no known problems. Allergies, Adverse Reactions, Alerts Allergy Name Allergy Status Severity Reaction(s) Onset Inactive Treating Comments Type Date Date Clinician iodine Unknown Active Unknown Reaction 2018-07 Interface Unknown 2-31 niacin Base Active Unknown Reaction 2018-07 Unknown Ingredient Unknown 2-31 Penicillins Unknown Active Unknown Reaction 2018-07 Interface Unknown 2-31 povidone-iod Base Active Unknown Reaction 2018-07 Interface ine Ingredient Unknown - soap Unknown Active Unknown Reaction 2018-07 Unknown Unknown 2-31 Statins-Hmg- Unknown Active Unknown Reaction 2018-07 Interface Coa Unknown 2-31 Reductase Inhibitor Medications Ordered Filled Start Stop Current Ordering Indication Dosage Frequency Signature Comments Components Medication Medication Date Date Medication? Clinician (SIG) Name Name omeprazole omeprazole No Unknown Unknown Unknown 20 mg 20 mg 8-23 capsule,del capsule,del ayed ayed release release spironolact spironolact No Unknown Unknown Unknown one 25 mg one 25 mg 8-23 tablet tablet Procedures This patient has no known procedures. Results This patient has no known results.
--- OUTSIDE RECORDS SUMMARY | 2019-09-15 15:54 | XMS REPORT ---
:1940 Author Organization [facility] Care Team Providers Name Role Phone Unavailable Unavailable Unavailable Problems Condition Condition Condition Status Onset Resolution Last Treating Comments Name Details Category Date Date Treatment Clinician Date Unspecified Unspecified Diagnosis Active Viridiana atrial atrial 07-23 Wendela fibrillatio fibrillatio n n Allergies, Adverse Reactions, Alerts Allergy Name Allergy Status Severity Reaction(s) Onset Inactive Treating Comments Type Date Date Clinician iodine Unknown Active Unknown Reaction 2018-07 Interface Unknown 2-31 niacin Base Active Unknown Reaction 2018-07 Unknown Ingredient Unknown 2-31 Penicillins Unknown Active Unknown Reaction 2018-07 Interface Unknown 2-31 povidone-iod Base Active Unknown Reaction 2018-07 Interface ine Ingredient Unknown -31 soap Unknown Active Unknown Reaction 2018-07 Unknown [...]
--- OUTSIDE RECORDS SUMMARY | 2019-09-15 15:54 | XMS REPORT | Continuity of Care Document ---
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 Onset: 07/07/2014 Musculoskeletal System, NEC Thoracic and lumbosacral neuritis Nikita Stevens M.D. Onset: 07/19/2014 Essential hypertension Karly Young M.D. Onset: 06/21/2015 Pulmonary valve disorder Karly Young M.D. Onset: 06/21/2015 Chronic diastolic heart failure Karly Young M.D. Onset: 07/18/2015 Polymyalgia rheumatica Karly Young M.D. Onset: 07/18/2015 Dyspnea Karly Young M.D. Onset: 11/08/2015 Persistent circulation Karly Young M.D. Onset: 11/08/2015 Localized, primary osteoarthritis of the Bintasintia Alicia M.D. Onset: 11/25/2017 pelvic region and thigh Gastroesophageal reflux disease Nasrin Edge M.D. Onset: 01/02/2018 Social History Type Date Description Comments Sex Unknown Tobacco Use Start: Unknown Never Smoked Cigarettes Smoking Status Reviewed: 08/07/19 Never Smoked Cigarettes ETOH Use Rarely consumes alcohol very very rare Tobacco Use Start: Unknown Patient has never smoked Recreational Drug Use Denies Drug Use Exercise Type/Frequency Exercises sporadically Allergies, Adverse Reactions, Alerts Active Allergies Reaction Severity Comments Date Penicillin Urticaria 12/29/2013 Statins muscle aches 12/29/2013 Betadine Urticaria 12/29/2013 Niacin Urticaria 12/29/2013 Iodine hives 06/07/2015 Surgical Scrub hives 11/25/2017 Medications Active Medications SIG Qnty Indications Ordering Date Provider Amiodarone HCL 1/2 by mouth 30tabs Jose Wolf, 08/07/2019 200mg every day DO FACC Tablets Rosuvastatin Calcium 1 by mouth 30tabs Jose Wolf, 08/07/2019 10mg every day DO FACC Tablets Tamoxifen Citrate take one by Jose Wolf, 07/26/2019 10mg mouth daily DO FACC Tablets Compression Stockings thigh- 1units Binta Alicia, 01/13/2018 Misc high M.D. Verapamil HCL ER 1 by mouth Unknown 10/30/2015 240mg Caps every day ER 24HR Omeprazole 1 by mouth 90caps Unknown 40mg Capsules DR every day Aspir-81 1 by mouth Unknown 81mg Tablets DR every day Indapamide 1 tab by mouth 150tabs Karly Young, 2.5mg Tablets every day M.D. Spironolactone 1 tablets by 180tabs Karly Young, 25mg Tablets mouth every day M.D. Culturelle once a day 15 Unknown Capsules billion cells per capsule Prednisone once a day Unknown 7mg Tablets (5-7MG varies) Naproxen 1 tablet with Unknown 500mg Tablets food by mouth twice a day as needed Apixaban 0ne tab po bid Unknown Medications Administered in Office Medication SIG Qnty Indications Ordering Provider Date Inj, Regadenoson, 0.1 MG Bryn Capone M.D. 06/23/2015 Injection Aminophylline Bryn Capone M.D. 06/23/2015 Injection Technetium TC 99M Tetrofosmin, Bryn Capone M.D. 06/23/2015 Per Unit Dose Up To 40 Millicuries Injection Triamcinolone (Kenalog) Ambrosio Martinez M.D. 12/29/2013 Injection Immunizations Description No Information Available Vital Signs Date Vital Result Comment 08/07/2019 11:17am Height 62 inches 5'2" Weight 210.00 lb with shoes BP Systolic Sitting 136 mmHg lue reg cuff BP Diastolic Sitting 82 mmHg lue reg cuff BP Systolic Standing 130 mmHg lue reg cuff BP Diastolic Standing 82 mmHg lue reg cuff Respiratory Rate 16 /min BMI (Body Mass Index) 38.4 kg/m2 Ejection Fraction 50-55% echo. 07/20/19 02/12/2019 9:21am Heart Rate 80 /min Respiratory Rate 18 /min Body Temperature 98.1 F Results Test Acquired Date Facility Test Result H/L Range Note Laboratory test 08/07/2019 [facility] B-Type <pending> finding [address] [place] [address] Peptide BNP [phone] Laboratory test 08/07/2019 [facility] TSH (Thyroid <pending> finding [address] Stim [place]orm) [place] [address] [phone] Laboratory test 02/06/2019 [facility] Surgical SEE RESULT [address] [place] [address] [phone] 1 SEE RESULT BELOW Name: ZINA FERNANDO : [address]: Bee Fernandes MD Acct: [id number] Unit: [id number] AGE: 78 Location: OR Re02/06/19 SEX: F Status: SHUBHAM [place] SPEC: [id number] ZHANE: 02/06/19- SUBM DR: Bee Fernandes MD REQ: [id number] RECD: 02/06/191358 STATUS: SOUT _ ORDERED: LEVEL 5 FINAL DIAGNOSIS Breast, right, lumpectomy: -- Benign skin and breast tissue with prior surgical site changes. -- No evidence of residual invasive or in situ carcinoma. PRE-OPERATIVE DIAGNOSIS Malignant neoplasm of unspecified site of right breast; long suture lateral, medium stitch medial, short stitch superior GROSS DESCRIPTION The specimen is received in formalin labeled, Right Breast Tissue Usual Markings, and consists of an 11.5 x 5.7 by up to 4.1 cm yellow irregular focally disrupted fibrofatty soft tissue fragment with three attached sutures which are designated as follows: long-lateral, short-superior and medium-medial. The specimen is partially surfaced by a 6.7 by up to 0.9 cm ledezma-white wrinkled skin ellipse with a central 5.2 cm linear scar on the superior anteromedial aspect. There is a 9.1 x 3.1 x 2.0 cm cavity consistent with a prior excision which opens to the mid anterior and lateral margins. The cavity lining is smooth to lobulated rubbery chalky yellow. A discrete lesion is not identified. The specimen is inked as follows: superior anterior-blue, inferior anterior-green and deep- black, serially sectioned from lateral to medial and guest services representative sections are submitted in cassettes A through N. Signed by and Reported on: Sherry Campos MD 02/10/19 1159 END OF REPORT DEPARTMENT OF PATHOLOGY, [address] [place] [address] Fabian Rooney M.D. Director [facility] # [id number] Procedures Date Code Description Status 08/07/2019 62308 EKG Tracing & Interpretation Completed 07/20/2019 95798 ECHO Transthorasic Realtime 2D W Doppler & Color Flow Completed Hosp 07/20/2019 40570 EKG, Interpretation Only Completed 02/06/2019 32545 Mastectomy Partial Completed 01/16/2019 [id number] Mammogram Completed 12/01/2018 [id number] Mammogram Completed 11/21/2018 [id number] Mammogram Completed Medical Devices Description No Information Available Encounters Type Date Location Provider Dx Diagnosis Office Visit 08/07/2019 [facility] Jose Wolf, I48.0 Paroxysmal atrial 11:20a Of Test Analyst DO FACC fibrillation E78.5 Hyperlipidemia, unspecified R06.02 Shortness of breath I25.2 Old myocardial infarction I50.32 Chronic diastolic (congestive) heart failure Office Visit 07/21/2019 9:42a [facility] I21.4 Non-St elevation Assjodie veras M.D. (Nstemi) Hospitalists myocardial infarction I48.0 Paroxysmal atrial fibrillation M35.3 Polymyalgia rheumatica I10 Essential (primary) hypertension Office Visit 07/20/2019 9:42a [facility] Nasrin I21.4 Non-St elevation Assjodie veras M.D. (Nstemi) Hospitalists myocardial infarction I48.91 Unspecified atrial fibrillation M35.3 Polymyalgia rheumatica Office Visit 07/19/2019 [facility] Mia R07.9 Chest pain, 9:41a Assoc,jodie Fallon NP unspecified Hospitalists R06.02 Shortness of breath I48.91 Unspecified atrial fibrillation I10 Essential (primary) hypertension Assessments Date Code Description Provider 08/07/2019 I48.0 Paroxysmal atrial fibrillation Jose Wolf DO FACC 08/07/2019 E78.5 Hyperlipidemia, unspecified Jose Wolf, DO FACC 08/07/2019 R06.02 Shortness of breath Jose Wolf, DO FACC 08/07/2019 I25.2 Old myocardial infarction Jose Wolf, DO FACC 08/07/2019 I50.32 Chronic diastolic (congestive) heart Jose Wolf, DO FACC failure 07/21/2019 I21.4 Non-St elevation (Nstemi) myocardial Nasrin Edge M.D. infarction 07/21/2019 I48.0 Paroxysmal atrial fibrillation Nasrin Edge M.D. 07/21/2019 M35.3 Polymyalgia rheumatica Nasrin Edge M.D. 07/21/2019 I10 Essential (primary) hypertension Nasrin Edge M.D. 07/20/2019 R94.31 Abnormal electrocardiogram [ECG] [EKG] Jose Wolf, DO FAC 07/20/2019 I21.4 Non-St elevation (Nstemi) myocardial Nasrin Edge M.D. infarction 07/20/2019 R06.02 Shortness of breath Jose Wolf DO FAC 07/20/2019 I48.91 Unspecified atrial fibrillation Nasrin Edge M.D. 07/20/2019 M35.3 Polymyalgia rheumatica Nasrin Edge M.D. 07/19/2019 R07.9 Chest pain, unspecified Mia Fallon, GLOBAL TECHNICAL WRITER 07/19/2019 R06.02 Shortness of breath Mia Fallon, GLOBAL TECHNICAL WRITER 07/19/2019 I48.91 Unspecified atrial fibrillation Mia Fallon, GLOBAL TECHNICAL WRITER 07/19/2019 I10 Essential (primary) hypertension Mia Fallon, GLOBAL TECHNICAL WRITER 02/12/2019 C50.911 Malignant neoplasm of unspecified site of Bee Fernandes MD right female montse 02/06/2019 C50.911 Malignant neoplasm of unspecified site of Bee Fernandes MD right female montse Plan of Treatment Future Appointment(s):09/08/2019 11:20 am - Jose Wolf DO FAC at [facility]09/02/2019 11:45 am - Jose Wolf DO FACC at [facility]08/07/2019 - Jose Wolf, DO FACCI48.0 Paroxysmal atrial fibrillationComments:Decrease amiodarone from 400 mg daily to 100 mg daily (1/2 tablet of 200 mg). Increase rosuvastatin from 5 to 10 mg once a day. Take the lab slips from today and bring them to your appointment with on 2019 and see if he will check them there and send us a copy Pending the results of thestress test, you may be a good candidate [facility]u 1 chsouH82.5 Hyperlipidemia, fvwbmvuguwxV31.02 Shortness of breathNew Orders:PFTW/Spirometry Vol Pre/Post Bronchdilat Dlco Complete, Scheduled: 09/03/19tress Test, Exercise Nuclear, Scheduled: 20I25.2 Old myocardial iunipiklzmC40.32 Chronic diastolic ( congestive) heart failure Functional Status Description No Information Available Mental Status Description No Information Available Referrals Description No Information Available
--- OUTSIDE RECORDS SUMMARY | 2019-09-15 15:54 | XMS REPORT ---
:1940 Author Organization [facility] Care Team Providers Name Role [...]
--- OUTSIDE RECORDS SUMMARY | 2019-09-15 15:54 | XMS REPORT ---
:1940 Author Organization [facility] Care Team Providers Name Role Phone Unavailable [...]
--- OUTSIDE RECORDS SUMMARY | 2019-09-15 15:54 | XMS REPORT | Continuity of Care Document ---
:1940 External Reference #:[id number] Author Name Jose Wolf DO [facility] (transmitted by agent of provider Leann Vila) Address [address] [place] [address] Care Team Providers Name Role Phone Misha Ibrahim MD - Family Medicine Care Team Information Physician Practice Market Manager [facility] [place] Care Team Information Physician Practice Market Manager - Physical Therapy Problems Active Problems Provider [...] Unknown Never Smoked Cigarettes Smoking Status Reviewed: 02/12/19 Never Smoked Cigarettes ETOH Use Rarely consumes [...] Medications SIG Qnty Indications Ordering Date Provider Compression Stockings thigh- 1units Binta Alicia, 01/13/2018 high M.D. Misc Verapamil HCL ER 1 by mouth every Unknown 10/30/2015 240mg day Caps ER 24HR Trazodone HCL 1 tablet at 30tabs Unknown 50mg bedtime as Tablets needed Omeprazole 1 by mouth every 90caps Unknown 40mg Capsules day DR Aspir-81 1 by mouth every Unknown 81mg Tablets DR day Indapamide 1 tab by mouth 150tabs Karly Hannah, 2.5mg Tablets every day ( med M.D. change decrease per Dr. Ibrahim, started 12/16/15) Spironolactone 1 tablets by 180tabs Karly Hannah, 25mg mouth every day M.D. Tablets Culturelle once a day 15 Unknown Capsules billion cells per capsule Prednisone once a day Unknown 7mg Tablets (5-7MG varies) Naproxen 1 tablet with Unknown 500mg Tablets food by mouth twice a day as needed Medications Administered in Office Medication SIG Qnty Indications Ordering Provider Date Inj, Regadenoson, 0.1 MG Bryn Capone M.D. 06/23/2015 Injection Aminophylline Bryn Capone M.D. 06/23/2015 Injection Technetium TC 99M Tetrofosmin, Bryn Capone M.D. 06/23/2015 Per Unit Dose Up To 40 Millicuries Injection Triamcinolone (Kenalog) Ambrosio Martinez M.D. 12/29/2013 Injection Immunizations Description No Information Available Vital Signs Date Vital Result Comment 02/12/2019 9:21am Heart Rate 80 /min Respiratory Rate 18 /min Body Temperature 98.1 F 01/26/2019 11:37am Heart Rate 68 /min BP Systolic Sitting 148 mmHg Right arm Large cuff BP Diastolic Sitting 80 mmHg Right arm Large cuff Respiratory Rate 16 /min Body Temperature 97.6 F Results Test Acquired Date Facility Test Result H/L Range Note Laboratory test 02/06/2019 [facility] Surgical SEE RESULT [address] [place] [address] [phone] 1 SEE RESULT BELOW Name: ZINA FERNANDO : [address]: Bee Fernandes MD Acct: [id number] Unit: [id number] AGE: 78 Location: OR Re02/06/19 SEX: F Status: SHUBHAM ARRIAGA SPEC: [id number] ZHANE: 02/06/19- SUBM DR: Bee Fernandes MD REQ: [id number] RECD: 02/06/19 STATUS: SOUT _ ORDERED: LEVEL 5 FINAL [...] serially sectioned from lateral to medial and direct sales representative sections are submitted in cassettes A through N. Signed by and Reported on: Sherry Campos MD 02/10/19 1159 END OF REPORT DEPARTMENT OF PATHOLOGY, [address] [place] [address] Fabian Rooney M.D. Director [facility] # [id number] Procedures Date Code Description Status 07/20/2019 30985 ECHO Transthorasic Realtime 2D W Doppler & Color Flow Completed Hosp 02/06/2019 43123 Mastectomy Partial Completed 01/16/2019 [id number] Mammogram Completed 12/01/2018 [id number] Mammogram Completed 11/21/2018 [id number] Mammogram Completed Medical Devices Description No Information Available Encounters Description No Information Available Assessments Date Code Description Provider 07/20/2019 R06.02 Shortness of breath Jose Wolf DO [facility] 02/12/2019 C50.911 Malignant neoplasm of unspecified site of Bee Fernandes MD right female breas 02/06/2019 C50.911 Malignant neoplasm of unspecified site of Bee Fernandes MD right female breas Plan of Treatment 02/12/2019 - Bee Fernandes, MDC50.911 Malignant neoplasm of unspecified site of right female breasFollow up:As needed Functional Status Description No Information Available Mental Status Description No Information Available Referrals Description No Information Available
[2019-09-15 17:22] LABS: ABS Basophils 0.1 10^3/ul (0-0.2); ABS Lymphocytes 1.2 10^3/ul (1.0-4.8); ABS Monocytes 0.6 10^3/ul (0-0.8); Eosinophil % 0.3 %; Hematocrit 46 % (35-47); Hemoglobin 15.7 g/dL (12.0-16.0); Mean Corpuscular HGB Conc 34 g/dL (31-36); Mean Corpuscular Hemoglobin 33 pg (27-31); Mean Corpuscular Volume 96 fL (80-97); Mean Platelet Volume 7.7 fL (7.4-10.4); Platelet Count 312 10^3/uL (150-450); Red Blood Count 4.74 10^6 /uL (3.70-4.87); Red Cell Distribution Width 15 % (10-15); White Blood Count 12.9 10^3/uL (3.5-10.8)
[2019-09-15] MEDS ORDERED: Silver Nitrate/Potassium Nitr* 1 PAK (1 PAK PER PATIENT) TOPICAL ONE (17:25)
--- NOTE | 2019-09-15 17:53 | ED ---
Throat Pain/Nasal Congestion - HPI Summary HPI Summary: Patient complains of 3-4 episodes of nosebleed from right nostril in the past 3 days. States she was unable to get it to stop today. Patient states she took Eliquis for 2 days a week and a half ago then stopped because of nosebleeds. Nosebleeds have been brief until today. Patient stated nosebleeds start when she sneezes. Denies any other pain, injury or symptoms. - History of Current Complaint Chief Complaint: EDEpistaxis Time Seen by Provider: 09/15/19 16:39 Hx Obtained From: Patient Onset/Duration: Gradual Onset, Lasting Days Severity: Moderate Associated Signs And Symptoms: Positive: Negative Cough: None - Allergies/Home Medications Allergies/Adverse Reactions: Allergies Allergy/AdvReac Type Severity Reaction Status Date / Time iodine Allergy Intermediate Rash Verified 09/15/19 15:44 niacin Allergy Intermediate Rash Verified 09/15/19 15:44 Penicillins Allergy Intermediate Hives Verified 09/15/19 15:44 povidone-iodine Allergy Intermediate Rash Verified 09/15/19 15:44 [From Betadine] soap [From Betadine] Allergy Intermediate Rash Verified 09/15/19 15:44 Kwxsoye-Kep-Aua Reductase AdvReac Intermediate Muscle Ache Verified 09/15/19 15: 44 Inhibitor Home Medications: Home Medications Omeprazole CAP (NF) [Prilosec CAP* 20 MG] 40 mg PO QAM 03/13/13 [History Confirmed 09/15/19] Spironolactone TAB* [Aldactone TAB 25 MG*] 25 mg PO QAM 03/13/13 [History Confirmed 09/15/19] Indapamide TAB* [Lozol TAB*] 2.5 mg PO QAM 11/16/15 [History Confirmed 09/15/19] Lactobacillus (NF) [Culturelle (NF)] 1 tab PO DAILY #0 07/08/18 [History Confirmed 09/15/19] Acetaminophen TAB* [Tylenol TAB*] 650 mg PO Q4H PRN tab 07/21/19 [Rx Confirmed 09/15/19] Apixaban* [Eliquis*] 5 mg PO BID #60 tab 07/21/19 [Rx Confirmed 09/15/19] Amiodarone TAB* [Cordarone TAB*] 100 mg PO DAILY 09/15/19 [History Confirmed ] Aspirin EC TAB* [Ecotrin EC Low Dose 81 MG*] 81 mg PO DAILY 09/15/19 [History Confirmed 09/15/19] Rosuvastatin (NF) [Crestor (NF)] 10 mg PO DAILY 09/15/19 [History Confirmed ] Tamoxifen TAB* [Nolvadex*] 10 mg PO DAILY 09/15/19 [History Confirmed 09/15/19] Verapamil SR TAB* [Calan Sr TAB*] 240 mg PO DAILY 09/15/19 [History Confirmed ] predniSONE 5 mg TAB [Deltasone 5 mg TAB] 10 mg PO DAILY 09/15/19 [History Confirmed 09/15/19] PMH/Surg Hx/FS Hx/Imm Hx Endocrine/Hematology History: Denies: Hx Anticoagulant Therapy, Hx Diabetes Cardiovascular History: Reports: Hx Hypertension, Hx Rheumatic Fever - childhood , Other Cardiovascular Problems/Disorders - HX STROKE 2007, HX BLOOD CLOT Denies: Hx Congestive Heart Failure, Hx Pacemaker/ICD, Hx Peripheral Vascular Disease GI History: Reports: Hx Gall Bladder Disease - removed 2000, Hx Gastroesophageal Reflux Disease - ON MEDS, Hx Ulcer - STOMACH 20+ YEARS AGO Denies: Other GI Disorders History: Denies: Hx Dialysis, Hx Renal Disease Musculoskeletal History: Reports: Hx Arthritis, Hx Back Problems, Other Musculoskeletal History - fibromyalgia Sensory History: Reports: Hx Cataracts, Hx Contacts or Glasses - glasses, Hx Hearing Aid - both ears, Hx Hearing Problem Denies: Hx Legally Blind, Hx Deafness Opthamlomology History: Reports: Hx Cataracts, Hx Contacts or Glasses - glasses Denies: Hx Legally Blind EENT History: Denies: Hx Deafness Neurological History: Reports: Hx Nerve Disease, Hx Transient Ischemic Attacks ( TIA), Other Neuro Impairments/Disorders - FIBROMYALGIA Denies: Hx Seizures Psychiatric History: Denies: Hx Anxiety, Hx Depression, Hx Panic Disorder - Cancer History Cancer Type, Location and Year: BREAST Hx Chemotherapy: No - 15 radiation tx with left breast Hx Radiation Therapy: Yes - Surgical History Surgery Procedure, Year, and Place: Lsp surgery 04/2014. Left knee replacement. right knee replacement. Right hip replacement. left hip replacement. Left breast cancer, surgery x2, one lymph node removed. Perforated ulcer. total hysterectomy. right breast surgery 2019 Hx Anesthesia Reactions: No - see above note - Immunization History Date of Tetanus Vaccine: Up to date Date of Influenza Vaccine: Fall 2011 Infectious Disease History: No Infectious Disease History: Denies: Traveled Outside the [place] in Last 30 Days - Family History Known Family History: Positive: Cardiac Disease Family History: Lupus - Social History Alcohol Use: None Alcohol Amount: 2 DRINKS A YEAR Hx Substance Use: No Substance Use Type: Reports: None Hx Tobacco Use: No Smoking Status (MU): Never Smoked Tobacco Review of Systems Constitutional: Negative Eyes: Negative Positive: Epistaxis Cardiovascular: Negative Respiratory: Negative Gastrointestinal: Negative Genitourinary: Negative Musculoskeletal: Negative Skin: Negative Neurological/Mental Status: Negative Psychological: Normal All Other Systems Reviewed And Are Negative: Yes Physical Exam - Summary Physical Exam Summary: Site of bleeding located in the anterior of right nasal cavity. Cauterized silver nitrate stick. Triage Information Reviewed: Yes Vital Signs On Initial Exam: Initial Vitals Temp Pulse Resp BP Pulse Ox 98.1 F 84 18 153/106 95 09/15/19 15:37 09/15/19 15:37 09/15/19 15:37 09/15/19 15:37 09/15/19 15:37 Vital Signs Reviewed: Yes Appearance: Positive: Well-Appearing Skin: Positive: Warm Head/Face: Positive: Normal Head/Face Inspection Eyes: Positive: Normal ENT: Positive: Normal ENT inspection Neck: Positive: Supple Respiratory/Lung Sounds: Positive: Clear to Auscultation Cardiovascular: Positive: Normal Abdomen Description: Positive: Nontender Musculoskeletal: Positive: Normal Neurological: Positive: Normal Psychiatric: Positive: Normal AVPU Assessment: Alert - [place] Coma Scale Best Eye Response: 4 - Spontaneous Best Motor Response: 6 - Obeys Commands Best Verbal Response: 5 - Oriented Coma Scale Total: 15 Procedures - Sedation Patient Received Moderate/Deep Sedation with Procedure: No Diagnostics - Vital Signs Vital Signs Temp Pulse Resp BP Pulse Ox 09/15/19 15:37 98.1 F 84 18 153/106 95 - Laboratory Lab Results: Lab Results 09/15/19 Range/Units 17:05 WBC 12.9 H (3.5-10.8) 10^3/uL RBC 4.74 (3.70-4.87) 10^6 /uL Hgb 15.7 (12.0-16.0) g/dL Hct 46 (35-47) % MCV 96 (80-97) fL MCH 33 H (27-31) pg MCHC 34 (31-36) g/dL RDW 15 (10-15) % Plt Count 312 (150-450) 10^3/uL MPV 7.7 (7.4-10.4) fL Neut % (Auto) 85.4 % Lymph % (Auto) 9.0 % [place] % (Auto) 4.5 % Eos % (Auto) 0.3 % Baso % (Auto) 0.8 % Absolute Neuts (auto) 11.0 H (1.5-7.7) 10^3/ul Absolute Lymphs (auto) 1.2 (1.0-4.8) 10^3/ul Absolute Monos (auto) 0.6 (0-0.8) 10^3/ul Absolute Eos (auto) 0.0 (0-0.6) 10^3/ul Absolute Basos (auto) 0.1 (0-0.2) 10^3/ul Absolute Nucleated RBC 0.0 10^3/ul Nucleated RBC % 0.0 Result Diagrams: 09/15/19 17:05 Lab Statement: Any lab studies that have been ordered have been reviewed, and results considered in the medical decision making process. EENT Course/Dx - Course Course Of Treatment: Patient complains of 3-4 episodes of nosebleed from right nostril in the past 3 days. States she was unable to get it to stop today. Patient states she took Eliquis for 2 days a week and a half ago then stopped because of nosebleeds. Nosebleeds have been brief until today. Patient stated nosebleeds start when she sneezes. Denies any other pain, injury or symptoms. Vital signs within normal limits. Bleeding controlled with cauterization. CBC negative. EKG sinus rhythm, rate of 82, LVH, same as prior. Patient states cardiology Dr. Wolf advised her to stop all her cardiac meds. Then states her PCP advised her to start Eliquis. Patient advised to call PCP and call or contact centre coach tomorrow to see if she should be anticoagulated. Patient stopped taking Eliquis after 2 days due to nosebleeds. - Diagnoses Provider Diagnoses: Acute anterior epistaxis Discharge ED - Sign-Out/Discharge Documenting (check all that apply): Patient Departure - Discharge Plan Condition: Stable Disposition: HOME Patient Education Materials: Nosebleed (ED) Referrals: Misha Ibrahim MD [Primary Care Provider] - Additional Instructions: Call Dr. Ibrahim tomorrow to ask if you should be taking Eliquis or not. Also tell him about shortness of breath since being discharged from the hospital. At home put a little Vaseline gently on the inside of your nose to help keep nasal lining is moist. Return to the ED for any new or worsening symptoms. - Billing Disposition and Condition Condition: STABLE Disposition: Home - Attestation Statements Provider Attestation: I was available for consultation for this patient. I did not evaluate the patient, or participate in any medical decision making or disposition decisions unless I am specifically named in the chart as having consulted on the patient. If I have consulted on the patient, please see my own ED note on the patient encounter. Melodie Flores MD
[2019-09-15 18:25] VITALS: BP 138/96
== END 2019-09-15 18:24 | disposition home or self-care (01) ==
LOC: ED 15:33
DX: R04.0 Epistaxis (principal); I10 Essential (primary) hypertension; K21.9 Gastro-esophageal reflux disease without esophagitis; Z86.73 Personal history of transient ischemic attack (TIA), and cerebral infarction without residual deficits; Z85.3 Personal history of malignant neoplasm of breast; Z90.49 Acquired absence of other specified parts of digestive tract; Z96.653 Presence of artificial knee joint, bilateral; Z96.643 Presence of artificial hip joint, bilateral; Z90.710 Acquired absence of both cervix and uterus; Z79.01 Long term (current) use of anticoagulants; Z79.899 Other long term (current) drug therapy; Z88.0 Allergy status to penicillin; Z88.8 Allergy status to other drugs, medicaments and biological substances; Z91.041 Radiographic dye allergy status
CPT/HCPCS: 36415; 85025; 93005; 99282; A9270-GY

== ENCOUNTER 2019-09-25 17:03 | Emergency (ER) | payer MEDICARE ==
[2019-09-25 18:18] VITALS: BP 150/102
[2019-09-25 19:15] LABS: ABS Basophils 0.1 10^3/ul (0-0.2); ABS Lymphocytes 1.2 10^3/ul (1.0-4.8); ABS Monocytes 0.5 10^3/ul (0-0.8); ABS Neutrophils 9.2 10^3/ul (1.5-7.7); Eosinophil % 0.2 %; Hematocrit 44 % (35-47); Hemoglobin 15.6 g/dL (12.0-16.0); Mean Corpuscular HGB Conc 35 g/dL (31-36); Mean Corpuscular Hemoglobin 33 pg (27-31); Mean Corpuscular Volume 95 fL (80-97); Mean Platelet Volume 7.6 fL (7.4-10.4); Platelet Count 350 10^3/uL (150-450); Red Blood Count 4.66 10^6 /uL (3.70-4.87); Red Cell Distribution Width 15 % (10-15); White Blood Count 10.9 10^3/uL (3.5-10.8)
[2019-09-25 19:25] LABS: INR 1.8 (0.82-1.09)
[2019-09-25 19:33] LABS: Albumin 4.2 g/dL (3.2-5.2); Albumin/Globulin Ratio 1.6 (1-3); BUN/Creatinine Ratio 22.8 (8-20); Calcium 10.1 mg/dL (8.6-10.3); EGFR African American 71.4 (>60); Globulin 2.6 g/dL (2-4); Potassium 3.6 mmol/L (3.5-5.0); Total Bilirubin 0.4 mg/dL (0.2-1.0); Total Protein 6.8 g/dL (6.4-8.9)
[2019-09-25 19:34] LABS: Troponin I 0.01 ng/mL (<0.03)
[2019-09-25] MEDS ORDERED: Oxymetazoline 0.05% NASAL SPR* 15 ML BTL BOTH NARES ONE (20:18)
--- NOTE | 2019-09-25 20:35 | ED ---
Throat Pain/Nasal Congestion - HPI Summary HPI Summary: 71-year-old female on anticoagulation presents to the emergency department today complaining of nosebleed which began earlier today and lasted approximately 3 hours. Patient states she has had multiple episodes of nosebleeds recently had her nosebleed cauterized in the emergency department. The patient otherwise feels well and denies fever, chest and abdominal pain, and urination, lightheadedness, shortness of breath, fatigue, nausea, vomiting, diarrhea. Bleeding is controlled at this time and there is no evidence of continuing epistaxis although it does appear the patient had right anterior epistaxis previously. - History of Current Complaint Chief Complaint: EDEpistaxis Time Seen by Provider: 09/25/19 20:10 Hx Obtained From: Patient Onset/Duration: Sudden Onset Severity: Moderate Cough: None - Allergies/Home Medications Allergies/Adverse Reactions: Allergies Allergy/AdvReac Type Severity Reaction Status Date / Time niacin Allergy Intermediate Rash Verified 09/25/19 17:17 Penicillins Allergy Intermediate Hives Verified 09/25/19 17:17 povidone-iodine Allergy Intermediate Rash Verified 09/25/19 17:17 [From Betadine] soap [From Betadine] Allergy Intermediate Rash Verified 09/25/19 17:17 Lmrpnag-Sxl-Tra Reductase AdvReac Intermediate Muscle Ache Verified 09/25/19 17: 17 Inhibitor Home Medications: Home Medications Omeprazole CAP (NF) [Prilosec CAP* 20 MG] 40 mg PO QAM 03/13/13 [History Confirmed 09/25/19] Spironolactone TAB* [Aldactone TAB 25 MG*] 25 mg PO QAM 03/13/13 [History Confirmed 09/25/19] Indapamide TAB* [Lozol TAB*] 2.5 mg PO QAM 11/16/15 [History Confirmed 09/25/19] Lactobacillus (NF) [Culturelle (NF)] 1 tab PO DAILY #0 07/08/18 [History Confirmed 09/25/19] Acetaminophen TAB* [Tylenol TAB*] 650 mg PO Q4H PRN tab 07/21/19 [Rx Confirmed 09/25/19] Apixaban* [Eliquis*] 5 mg PO BID #60 tab 07/21/19 [Rx Confirmed 09/25/19] Amiodarone TAB* [Cordarone TAB*] 100 mg PO DAILY 09/15/19 [History Confirmed 01/08] Aspirin EC TAB* [Ecotrin EC Low Dose 81 MG*] 81 mg PO DAILY 09/15/19 [History Confirmed 09/25/19] Rosuvastatin (NF) [Crestor (NF)] 10 mg PO DAILY 09/15/19 [History Confirmed 01/08] Tamoxifen TAB* [Nolvadex*] 10 mg PO DAILY 09/15/19 [History Confirmed 09/25/19] Verapamil SR TAB* [Calan Sr TAB*] 240 mg PO DAILY 09/15/19 [History Confirmed ] predniSONE 5 mg TAB [Deltasone 5 mg TAB] 10 mg PO DAILY 09/15/19 [History Confirmed 09/25/19] PMH/Surg Hx/FS Hx/Imm Hx Endocrine/Hematology History: Denies: Hx Anticoagulant Therapy, Hx Diabetes Cardiovascular History: Reports: Hx Hypertension, Hx Rheumatic Fever - childhood , Other Cardiovascular Problems/Disorders - HX STROKE 2007, HX BLOOD CLOT Denies: Hx Congestive Heart Failure, Hx Pacemaker/ICD, Hx Peripheral Vascular Disease GI History: Reports: Hx Gall Bladder Disease - removed 2000, Hx Gastroesophageal Reflux Disease - ON MEDS, Hx Ulcer - STOMACH 20+ YEARS AGO Denies: Other GI Disorders History: Denies: Hx Dialysis, Hx Renal Disease Musculoskeletal History: Reports: Hx Arthritis, Hx Back Problems, Other Musculoskeletal History - fibromyalgia Sensory History: Reports: Hx Cataracts, Hx Contacts or Glasses - glasses, Hx Hearing Aid - both ears, Hx Hearing Problem Denies: Hx Legally Blind, Hx Deafness Opthamlomology History: Reports: Hx Cataracts, Hx Contacts or Glasses - glasses Denies: Hx Legally Blind Neurological History: Reports: Hx Nerve Disease, Hx Transient Ischemic Attacks ( TIA), Other Neuro Impairments/Disorders - FIBROMYALGIA Denies: Hx Seizures Psychiatric History: Denies: Hx Anxiety, Hx Depression, Hx Panic Disorder - Cancer History Cancer Type, Location and Year: BREAST Hx Chemotherapy: No - 15 radiation tx with left breast Hx Radiation Therapy: Yes - Surgical History Surgery Procedure, Year, and Place: Lsp surgery 04/2014. Left knee replacement. right knee replacement. Right hip replacement. left hip replacement. Left breast cancer, surgery x2, one lymph node removed. Perforated ulcer. total hysterectomy. right breast surgery 2019 Hx Anesthesia Reactions: No - see above note - Immunization History Date of Tetanus Vaccine: Up to date Date of Influenza Vaccine: Fall 2011 Immunizations Up to Date: Yes Infectious Disease History: No Infectious Disease History: Denies: Traveled Outside the [place] in Last 30 Days - Family History Known Family History: Positive: Cardiac Disease Family History: Lupus - Social History Alcohol Use: None Alcohol Amount: 2 DRINKS A YEAR Hx Substance Use: No Substance Use Type: Reports: None Hx Tobacco Use: No Smoking Status (MU): Never Smoked Tobacco Review of Systems Constitutional: Negative Eyes: Negative Positive: Epistaxis Cardiovascular: Negative Respiratory: Negative Gastrointestinal: Negative Genitourinary: Negative Musculoskeletal: Negative Skin: Negative Neurological/Mental Status: Negative Psychological: Normal All Other Systems Reviewed And Are Negative: Yes Physical Exam - Summary Physical Exam Summary: Patient is in no acute distress. Patient has no evidence of anemia or hypovolemia. Epistaxis has resolved. There is evidence of right anterior epistaxis. Epistaxis spontaneously resolved with pressure. Triage Information Reviewed: Yes Vital Signs On Initial Exam: Initial Vitals Temp Pulse Resp BP Pulse Ox 98.7 F 97 16 161/97 94 09/25/19 17:13 09/25/19 17:13 09/25/19 17:13 09/25/19 17:13 09/25/19 17:13 Vital Signs Reviewed: Yes Appearance: Positive: Well-Appearing, No Pain Distress, Well-Nourished Skin: Positive: Warm, Skin Color Reflects Adequate Perfusion Eyes: Positive: EOMI, CORNELL ENT: Positive: Hearing grossly normal Respiratory/Lung Sounds: Positive: Clear to Auscultation, Breath Sounds Present Cardiovascular: Positive: RRR, S1, S2 Abdomen Description: Positive: Nontender, Soft Bowel Sounds: Positive: Present Musculoskeletal: Positive: Strength/ROM Intact Neurological: Positive: Sensory/Motor Intact, Alert, Oriented to Person Place, Time, Normal Gait, Facial Symmetry, Speech Normal Psychiatric: Positive: Normal, Affect/Mood Appropriate AVPU Assessment: Alert Procedures - Sedation Patient Received Moderate/Deep Sedation with Procedure: No Diagnostics - Vital Signs Vital Signs Temp Pulse Resp BP Pulse Ox 09/25/19 18:14 99 F 96 20 150/102 92 09/25/19 17:13 98.7 F 97 16 161/97 94 - Laboratory Lab Results: Lab Results 09/25/19 09/25/19 09/25/19 Range/Units 19:10 19:10 19:10 WBC 10.9 H (3.5-10.8) 10^3/uL RBC 4.66 (3.70-4.87) 10^6 /uL Hgb 15.6 (12.0-16.0) g/dL Hct 44 (35-47) % MCV 95 (80-97) fL MCH 33 H (27-31) pg MCHC 35 (31-36) g/dL RDW 15 (10-15) % Plt Count 350 (150-450) 10^3/uL MPV 7.6 (7.4-10.4) fL Neut % (Auto) 83.9 % Lymph % (Auto) 11.0 % [place] % (Auto) 4.2 % Eos % (Auto) 0.2 % Baso % (Auto) 0.7 % Absolute Neuts (auto) 9.2 H (1.5-7.7) 10^3/ul Absolute Lymphs (auto) 1.2 (1.0-4.8) 10^3/ul Absolute Monos (auto) 0.5 (0-0.8) 10^3/ul Absolute Eos (auto) 0.0 (0-0.6) 10^3/ul Absolute Basos (auto) 0.1 (0-0.2) 10^3/ul Absolute Nucleated RBC 0.0 10^3/ul Nucleated RBC % 0.0 INR (Anticoag Therapy) 1.80 H (0.82-1.09) Sodium 138 (135-145) mmol/L Potassium 3.6 (3.5-5.0) mmol/L Chloride 100 L (101-111) mmol/L Carbon Dioxide 27 (22-32) mmol/L Anion Gap 11 (2-11) mmol/L BUN 21 (6-24) mg/dL Creatinine 0.92 (0.51-0.95) mg/dL Est GFR ( Amer) 71.4 (>60) Est GFR (Non-Af Amer) 59.0 (>60) BUN/Creatinine Ratio 22.8 H (8-20) Glucose 129 H (70-100) mg/dL Calcium 10.1 (8.6-10.3) mg/dL Total Bilirubin 0.40 (0.2-1.0) mg/dL AST 15 (13-39) U/L ALT 13 (7-52) U/L Alkaline Phosphatase 49 (34-104) U/L Troponin I 0.01 (<0.03) ng/mL Total Protein 6.8 (6.4-8.9) g/dL Albumin 4.2 (3.2-5.2) g/dL Globulin 2.6 (2-4) g/dL Albumin/Globulin Ratio 1.6 (1-3) Result Diagrams: 09/25/19 19:10 09/25/19 19:10 Lab Statement: Any lab studies that have been ordered have been reviewed, and results considered in the medical decision making process. EENT Course/Dx - Course Course Of Treatment: Patient was evaluated in the emergency department today for epistaxis. Patient's epistaxis resolved spontaneously with direct pressure. Labs are done which showed no evidence of significant anemia. Patient continued to be in no acute distress and had no evidence of hypovolemia. Patient discharged outpatient follow-up with ENT for further evaluation of nosebleeds. - Differential Diagnoses Differential Diagnoses: Epistaxis - Diagnoses Provider Diagnoses: Epistaxis Discharge ED - Sign-Out/Discharge Documenting (check all that apply): Patient Departure - Discharge Plan Condition: Stable Disposition: HOME Patient Education Materials: Nosebleed (ED) Referrals: Misha Ibrahim MD [Primary Care Provider] - Bhaskar Fitch MD [Medical Doctor] - As Soon As Possible Additional Instructions: Please do not blow your nose or pick your nose. Please be sure to keep your nose moist with Vaseline or nasal spray. Please return to this emergency Department immediately if yo develop any new or worsening symptoms such as bleeding which does not resolve after 2 cycles of 15 minutes of pressure. Please follow-up with ENT for further evaluation and management as soon as possible. - Billing Disposition and Condition Condition: STABLE Disposition: Home
== END 2019-09-25 20:41 | disposition home or self-care (01) ==
LOC: ED 17:03
DX: R04.0 Epistaxis (principal); I10 Essential (primary) hypertension; Z86.79 Personal history of other diseases of the circulatory system; Z86.73 Personal history of transient ischemic attack (TIA), and cerebral infarction without residual deficits; Z85.3 Personal history of malignant neoplasm of breast; Z79.82 Long term (current) use of aspirin; Z88.0 Allergy status to penicillin; Z88.8 Allergy status to other drugs, medicaments and biological substances; Z96.653 Presence of artificial knee joint, bilateral; Z96.643 Presence of artificial hip joint, bilateral; Z79.899 Other long term (current) drug therapy
CPT/HCPCS: 36415; 80053; 84484; 85025; 85610; 93005; 99282; A9270-GY

== ENCOUNTER 2022-04-29 06:49 | Inpatient (IN) ==
[2022-04-29] MEDS ORDERED: NS 0.9% 1000 ml BAG 1,000 ML IV ONE (07:34)
[2022-04-29 07:38] LABS: ABS Basophils 0.1 10^3/ul (0-0.2); ABS Monocytes 0.8 10^3/ul (0-0.8); ABS Neutrophils 19.6 10^3/ul (1.5-7.7); Eosinophil % 0.2 %; Hematocrit 39 % (35-47); Hemoglobin 12.6 g/dL (12.0-16.0); Lymphocyte % 4.6 %; Mean Corpuscular HGB Conc 32 g/dL (31-36); Mean Corpuscular Hemoglobin 29 pg (27-31); Mean Corpuscular Volume 92 fL (80-97); Mean Platelet Volume 7.7 fL (7.4-10.4); Platelet Count 283 10^3/uL (150-450); Red Blood Count 4.31 10^6 /uL (3.70-4.87); Red Cell Distribution Width 16 % (10-15); White Blood Count 21.6 10^3/uL (3.5-10.8)
[2022-04-29] MEDS ORDERED: Acetaminophen IV 1 GM/100ML 1,000 MG/100 ML BAG IV ONE (07:43)
[2022-04-29 07:48] LABS: INR 1.16 (0.89-1.11)
[2022-04-29 08:10] LABS: Albumin 3.6 g/dL (3.2-5.2); Albumin/Globulin Ratio 1.7 (1-3); Calcium 9.5 mg/dL (8.6-10.3); Globulin 2.1 g/dL (2-4); Magnesium 1.4 mg/dL (1.9-2.7); Potassium 2.9 mmol/L (3.5-5.0); Total Bilirubin 0.6 mg/dL (0.2-1.0); Total Protein 5.7 g/dL (6.4-8.9); eGFR CKD-EPI 55.6 (>60)
[2022-04-29] MEDS ORDERED: Iodixanol (CONTRAST) 320 MG/ML 100 ML SDV IV ONE (08:15)
[2022-04-29] MEDS ORDERED: KCL 20 MEQ/100 ML IVPREMIX 20 MEQ/100 ML BAG IV ONE (08:25)
[2022-04-29] MEDS ORDERED: Magnesium Sulfate 2 gm BAG 2 GM/50 ML BAG IVPB ONE (08:25)
[2022-04-29] MEDS ORDERED: Potassium EFFERVES 25 meq TAB PO ONE (08:26)
[2022-04-29] MEDS ORDERED: Ciprofloxacin 400mg IVPREMIX 400 MG/200 ML BAG IVPB ONE (10:26)
[2022-04-29] MEDS ORDERED: metroNIDAZOLE IV 500 MG/100ML 500 MG/100 ML BAG IVPB ONE (10:26)
[2022-04-29] MEDS: NS 0.9% 1000 ml BAG 1,000 ML IV SCH (15:33)
[2022-04-29] MEDS ORDERED: Lactated Ringers 500 ml BAG 500 ML IV ONE (15:54)
[2022-04-29] MEDS ORDERED: metroNIDAZOLE IV 500 MG/100ML 500 MG/100 ML BAG IVPB SCH (18:00)
[2022-04-29] MEDS: metroNIDAZOLE IV 500 MG/100ML 500 MG/100 ML BAG IVPB SCH (21:26)
[2022-04-29] MEDS: Ciprofloxacin 400mg IVPREMIX 400 MG/200 ML BAG IVPB SCH (23:47)
[2022-04-30] MEDS ORDERED: Ondansetron 4 mg VIAL 2 MG/ML 2 ml VIAL IV PRN (03:27)
[2022-04-30] MEDS: metroNIDAZOLE IV 500 MG/100ML 500 MG/100 ML BAG IVPB SCH ×2 (05:45→14:20)
[2022-04-30] MEDS: NS 0.9% 1000 ml BAG 1,000 ML IV SCH (05:45)
[2022-04-30 06:29] LABS: ABS Basophils 0.1 10^3/ul (0-0.2); ABS Eosinophils 0.2 10^3/ul (0-0.6); ABS Lymphocytes 1.5 10^3/ul (1.0-4.8); ABS Monocytes 0.9 10^3/ul (0-0.8); ABS Neutrophils 11.7 10^3/ul (1.5-7.7); Eosinophil % 1.4 %; Hematocrit 35 % (35-47); Hemoglobin 11.6 g/dL (12.0-16.0); Lymphocyte % 10.2 %; Mean Corpuscular HGB Conc 33 g/dL (31-36); Mean Corpuscular Hemoglobin 30 pg (27-31); Mean Corpuscular Volume 91 fL (80-97); Mean Platelet Volume 7.8 fL (7.4-10.4); Platelet Count 244 10^3/uL (150-450); Red Blood Count 3.86 10^6 /uL (3.70-4.87); Red Cell Distribution Width 15 % (10-15); White Blood Count 14.4 10^3/uL (3.5-10.8)
[2022-04-30 07:13] LABS: C Reactive Protein 86.31 mg/L (<8.01); Calcium 8.4 mg/dL (8.6-10.3); eGFR CKD-EPI 80.4 (>60)
[2022-04-30] MEDS ORDERED: Potassium Chloride LIQUID 20 MEQ/15 ML LIQUID PO ONE ×3 (08:37→22:00)
[2022-04-30] MEDS ORDERED: Magnesium Sulf 4 GM/100 ML IV 4,000 MG/100 ML BAG IVPB ONE (08:39)
[2022-04-30 09:02] LABS: Magnesium 1.5 mg/dL (1.9-2.7)
[2022-04-30] MEDS ORDERED: Potassium Phosphate IV 10 MMOLE in NS 0.9% 250 ml 250 ML IVPB ONE (09:30)
[2022-04-30] MEDS: Ciprofloxacin 400mg IVPREMIX 400 MG/200 ML BAG IVPB SCH ×2 (12:03→22:30)
[2022-04-30] MEDS: KCL 10 MEQ/50 ML IVPREMIX 10 MEQ/50 ML BAG IV SCH ×2 (12:57→17:44)
[2022-04-30] MEDS ORDERED: Lactated Ringers 1000 ml BAG 1,000 ML IV SCH (14:00)
[2022-04-30] MEDS ORDERED: Midazolam 5 mg/5 ml VIAL 1 mg/ml 5 ml VIAL (5 mg) ONE (15:33)
[2022-04-30] MEDS ORDERED: Midazolam 10 mg/10 ml VIAL 1 mg/ml 10 ml VIAL (10 mg) ONE (15:33)
[2022-04-30] MEDS ORDERED: fentaNYL 100 mcg/2 ml 50 MCG/ML VIAL ONE (15:34)
[2022-04-30] MEDS: Aspirin EC 81 mg TAB.EC (enteric coated) PO SCH (20:26)
[2022-04-30] MEDS ORDERED: Heparin 5000 UNITS/ML 1 mL VIAL SUBCUT SCH (21:00)
[2022-04-30 22:05] LABS: Hematocrit 37 % (35-47); Hemoglobin 11.9 g/dL (12.0-16.0)
[2022-05-01] MEDS: metroNIDAZOLE IV 500 MG/100ML 500 MG/100 ML BAG IVPB SCH ×3 (01:43→17:31)
[2022-05-01 06:02] LABS: ABS Basophils 0.1 10^3/ul (0-0.2); ABS Eosinophils 0.3 10^3/ul (0-0.6); ABS Lymphocytes 0.9 10^3/ul (1.0-4.8); ABS Monocytes 0.5 10^3/ul (0-0.8); ABS Neutrophils 7.6 10^3/ul (1.5-7.7); Eosinophil % 2.9 %; Hematocrit 35 % (35-47); Hemoglobin 11.7 g/dL (12.0-16.0); Lymphocyte % 9.1 %; Mean Corpuscular HGB Conc 33 g/dL (31-36); Mean Corpuscular Hemoglobin 30 pg (27-31); Mean Corpuscular Volume 92 fL (80-97); Mean Platelet Volume 7.9 fL (7.4-10.4); Platelet Count 242 10^3/uL (150-450); Red Blood Count 3.84 10^6 /uL (3.70-4.87); Red Cell Distribution Width 16 % (10-15); White Blood Count 9.3 10^3/uL (3.5-10.8)
[2022-05-01 06:24] LABS: Calcium 8.4 mg/dL (8.6-10.3); Magnesium 1.9 mg/dL (1.9-2.7); Potassium 3.4 mmol/L (3.5-5.0)
[2022-05-01 06:30] LABS: Phosphorus 2.8 mg/dL (2.5-5.0); eGFR CKD-EPI 85.9 (>60)
[2022-05-01] MEDS: Enoxaparin 40 MG/0.4 ML SYR SUBCUT SCH (10:46)
[2022-05-01] MEDS: Aspirin EC 81 mg TAB.EC (enteric coated) PO SCH (10:46)
[2022-05-01] MEDS: Ciprofloxacin 400mg IVPREMIX 400 MG/200 ML BAG IVPB SCH ×2 (11:19→22:43)
[2022-05-01] MEDS ORDERED: Potassium Chloride LIQUID 20 MEQ/15 ML LIQUID PO ONE (19:57)
[2022-05-02] MEDS: metroNIDAZOLE IV 500 MG/100ML 500 MG/100 ML BAG IVPB SCH ×3 (01:51→18:07)
[2022-05-02 08:32] LABS: ABS Basophils 0.1 10^3/ul (0-0.2); ABS Eosinophils 0.6 10^3/ul (0-0.6); ABS Lymphocytes 1.7 10^3/ul (1.0-4.8); ABS Monocytes 0.8 10^3/ul (0-0.8); ABS Neutrophils 6.3 10^3/ul (1.5-7.7); Eosinophil % 6.2 %; Hematocrit 38 % (35-47); Hemoglobin 12.2 g/dL (12.0-16.0); Lymphocyte % 18.3 %; Mean Corpuscular HGB Conc 33 g/dL (31-36); Mean Corpuscular Hemoglobin 30 pg (27-31); Mean Corpuscular Volume 92 fL (80-97); Mean Platelet Volume 7.8 fL (7.4-10.4); Platelet Count 267 10^3/uL (150-450); Red Blood Count 4.08 10^6 /uL (3.70-4.87); Red Cell Distribution Width 15 % (10-15); White Blood Count 9.5 10^3/uL (3.5-10.8)
[2022-05-02 09:02] LABS: Calcium 8.9 mg/dL (8.6-10.3); Magnesium 1.7 mg/dL (1.9-2.7); Potassium 3.5 mmol/L (3.5-5.0)
[2022-05-02 09:07] LABS: Phosphorus 2.2 mg/dL (2.5-5.0); eGFR CKD-EPI 85.9 (>60)
[2022-05-02] MEDS: Aspirin EC 81 mg TAB.EC (enteric coated) PO SCH (09:40)
[2022-05-02] MEDS: Enoxaparin 40 MG/0.4 ML SYR SUBCUT SCH (09:56)
[2022-05-02] MEDS ORDERED: Lorazepam PYXIS KEY PRN (10:49)
[2022-05-02] MEDS ORDERED: LORazepam 2 mg VIAL 1 ml IV PUSH PRN (10:50)
[2022-05-02] MEDS: Ciprofloxacin 400mg IVPREMIX 400 MG/200 ML BAG IVPB SCH ×2 (11:04→22:28)
[2022-05-02] MEDS ORDERED: Lidocaine 2% PF 5 ML VIAL ONE (15:56)
[2022-05-02] MEDS ORDERED: Lidocaine 1% VIAL 10 MG/ML VIAL ONE (16:19)
[2022-05-02] MEDS ORDERED: Magnesium Sulfate 2 gm BAG 2 GM/50 ML BAG IVPB ONE (18:39)
[2022-05-02] MEDS: Potassium & Sodium Phos 250 mg = 1 PACKET PO SCH (20:28)
[2022-05-03] MEDS: metroNIDAZOLE IV 500 MG/100ML 500 MG/100 ML BAG IVPB SCH ×3 (02:04→17:43)
[2022-05-03 06:21] LABS: ABS Lymphocytes 0.8 10^3/ul (1.0-4.8); ABS Monocytes 0.4 10^3/ul (0-0.8); ABS Neutrophils 6.6 10^3/ul (1.5-7.7); Hematocrit 38 % (35-47); Hemoglobin 12.4 g/dL (12.0-16.0); Mean Corpuscular HGB Conc 32 g/dL (31-36); Mean Corpuscular Hemoglobin 30 pg (27-31); Mean Corpuscular Volume 92 fL (80-97); Mean Platelet Volume 7.6 fL (7.4-10.4); Platelet Count 312 10^3/uL (150-450); Red Blood Count 4.16 10^6 /uL (3.70-4.87); Red Cell Distribution Width 16 % (10-15); White Blood Count 7.8 10^3/uL (3.5-10.8)
[2022-05-03 07:06] LABS: Calcium 8.9 mg/dL (8.6-10.3); Potassium 3.9 mmol/L (3.5-5.0)
[2022-05-03 07:11] LABS: Phosphorus 3.6 mg/dL (2.5-5.0); eGFR CKD-EPI 87.7 (>60)
[2022-05-03] MEDS: Aspirin EC 81 mg TAB.EC (enteric coated) PO SCH (10:30)
[2022-05-03] MEDS: Enoxaparin 40 MG/0.4 ML SYR SUBCUT SCH (10:30)
[2022-05-03] MEDS: Potassium & Sodium Phos 250 mg = 1 PACKET PO SCH (10:30)
[2022-05-03] MEDS ORDERED: LORazepam 2 mg VIAL 1 ml IV PUSH ONE (10:52)
[2022-05-03] MEDS ORDERED: Lorazepam PYXIS KEY PRN (10:52)
[2022-05-03] MEDS: Ciprofloxacin 400mg IVPREMIX 400 MG/200 ML BAG IVPB SCH ×2 (11:04→22:28)
[2022-05-03] MEDS ORDERED: LORazepam 2 mg VIAL 1 ml IV PUSH PRN (12:00)
[2022-05-04] MEDS: metroNIDAZOLE IV 500 MG/100ML 500 MG/100 ML BAG IVPB SCH ×2 (01:05→09:30)
[2022-05-04 07:01] LABS: ABS Basophils 0.1 10^3/ul (0-0.2); ABS Lymphocytes 1.7 10^3/ul (1.0-4.8); ABS Monocytes 0.9 10^3/ul (0-0.8); ABS Neutrophils 8.8 10^3/ul (1.5-7.7); Eosinophil % 0.3 %; Hematocrit 37 % (35-47); Hemoglobin 11.9 g/dL (12.0-16.0); Lymphocyte % 14.4 %; Mean Corpuscular HGB Conc 32 g/dL (31-36); Mean Corpuscular Hemoglobin 30 pg (27-31); Mean Corpuscular Volume 92 fL (80-97); Mean Platelet Volume 7.6 fL (7.4-10.4); Platelet Count 336 10^3/uL (150-450); Red Cell Distribution Width 16 % (10-15); White Blood Count 11.5 10^3/uL (3.5-10.8)
[2022-05-04 07:34] LABS: Magnesium 1.8 mg/dL (1.9-2.7); Phosphorus 2.6 mg/dL (2.5-5.0); Potassium 3.7 mmol/L (3.5-5.0); eGFR CKD-EPI 75.6 (>60)
[2022-05-04] MEDS ORDERED: Magnesium Sulfate IV 1GM/100ML 1 GM/100 ML BAG IV ONE (09:24)
[2022-05-04] MEDS: Enoxaparin 40 MG/0.4 ML SYR SUBCUT SCH (09:40)
[2022-05-04] MEDS: Aspirin EC 81 mg TAB.EC (enteric coated) PO SCH (09:40)
[2022-05-04 10:49] VITALS: BP 182/89
[2022-05-04] MEDS: Ciprofloxacin 400mg IVPREMIX 400 MG/200 ML BAG IVPB SCH (12:01)
== END 2022-05-04 14:33 | disposition home or self-care (01) | DRG 516 ==
LOC: EDHOLD 06:49 → ED 06:49 → SUATTDRO 11:48 → MED 16:18
PROVIDERS: ADMIT Internal Medicine; ATTEND Hospitalist

== ENCOUNTER 2022-05-29 20:23 | Observation (INO) ==
[2022-05-29] MEDS ORDERED: NS 0.9% 1000 ml BAG 1,000 ML IV ONE (21:09)
[2022-05-29 21:36] LABS: ABS Basophils 0.1 10^3/ul (0-0.2); ABS Eosinophils 0.1 10^3/ul (0-0.6); ABS Monocytes 0.7 10^3/ul (0-0.8); ABS Neutrophils 10.9 10^3/ul (1.5-7.7); Eosinophil % 0.4 %; Hematocrit 43 % (35-47); Lymphocyte % 7.7 %; Mean Corpuscular HGB Conc 33 g/dL (31-36); Mean Corpuscular Hemoglobin 30 pg (27-31); Mean Corpuscular Volume 92 fL (80-97); Mean Platelet Volume 8.2 fL (7.4-10.4); Platelet Count 245 10^3/uL (150-450); Red Blood Count 4.71 10^6 /uL (3.70-4.87); Red Cell Distribution Width 16 % (10-15); White Blood Count 12.8 10^3/uL (3.5-10.8)
[2022-05-29 21:59] LABS: High Sens Troponin Baseline 19 pg/mL (<15)
[2022-05-29 22:16] LABS: Albumin 3.9 g/dL (3.2-5.2); CO2 Carbon Dioxide 21 mmol/L (22-32); Calcium 9.6 mg/dL (8.6-10.3); Chloride 95 mmol/L (101-111); Sodium 132 mmol/L (135-145)
[2022-05-29 22:22] LABS: ALT 21 U/L (7-52); Albumin/Globulin Ratio 1.9 (1-3); Alkaline Phosphatase 41 U/L (35-149); Blood Urea Nitrogen 24 mg/dL (6-24); Globulin 2.1 g/dL (2-4); Glucose 122 mg/dL (70-100); eGFR CKD-EPI 42.3 (>60)
[2022-05-29 22:29] LABS: Anion Gap 16 mmol/L (2-11)
[2022-05-29 23:04] LABS: High Sensitivity Troponin 1 Hr 19 pg/mL (<15)
[2022-05-29 23:15] LABS: Magnesium 1.7 mg/dL (1.9-2.7); Potassium Redraw 2.9 mmol/L (3.5-5.0)
[2022-05-29] MEDS ORDERED: Magnesium Sulfate 2 gm BAG 2 GM/50 ML BAG IVPB ONE (23:54)
[2022-05-30] MEDS ORDERED: Potassium EFFERVES 25 meq TAB PO ONE (00:06)
[2022-05-30] MEDS: KCL 20 MEQ/100 ML IVPREMIX 20 MEQ/100 ML BAG IV SCH ×2 (00:51→03:23)
[2022-05-30] MEDS: NS 0.9% 1000 ml BAG 1,000 ML IV SCH ×2 (00:51→16:48)
[2022-05-30 04:42] LABS: Urine Appearance Cloudy; Urine Bilirubin Negative (Negative); Urine Blood 1+ (Negative); Urine Color Yellow; Urine Glucose Negative (Negative); Urine Ketones 1+ (Negative); Urine Nitrite Negative (Negative); Urine Protein Negative (Negative); Urine Specific Gravity 1.016 (1.002-1.030); Urine Urobilinogen Negative (Negative)
[2022-05-30 05:36] LABS: Urine Bacteria 1+ (Absent); Urine Red Blood Cell 2+(6-10/hpf) (Absent); Urine Squamous Epithelial Cell Present (Absent); Urine Transitional Epithelial Present (Absent); Urine White Blood Cell 3+(>20/hpf) (Absent)
[2022-05-30] MEDS: Aspirin EC 81 mg TAB.EC (enteric coated) PO SCH (08:54)
[2022-05-30 12:01] LABS: ABS Basophils 0.1 10^3/ul (0-0.2); ABS Eosinophils 0.1 10^3/ul (0-0.6); ABS Lymphocytes 0.8 10^3/ul (1.0-4.8); ABS Monocytes 0.4 10^3/ul (0-0.8); ABS Neutrophils 7.6 10^3/ul (1.5-7.7); Eosinophil % 1.2 %; Hematocrit 40 % (35-47); Lymphocyte % 8.8 %; Mean Corpuscular HGB Conc 33 g/dL (31-36); Mean Corpuscular Hemoglobin 30 pg (27-31); Mean Corpuscular Volume 92 fL (80-97); Mean Platelet Volume 7.9 fL (7.4-10.4); Platelet Count 246 10^3/uL (150-450); Red Blood Count 4.29 10^6 /uL (3.70-4.87); Red Cell Distribution Width 16 % (10-15)
[2022-05-30] MEDS: cefTRIAXone 1 gm/50 mL D5W 1 GM/50 ML BAG IV SCH (12:42)
[2022-05-30 12:43] LABS: Calcium 8.9 mg/dL (8.6-10.3); Magnesium 2.1 mg/dL (1.9-2.7); Potassium 3.4 mmol/L (3.5-5.0); eGFR CKD-EPI 62.9 (>60)
[2022-05-30] MEDS: Enoxaparin 40 MG/0.4 ML SYR SUBCUT SCH (16:48)
[2022-05-31] MEDS: NS 0.9% 1000 ml BAG 1,000 ML IV SCH (05:55)
[2022-05-31 06:58] LABS: ABS Basophils 0.1 10^3/ul (0-0.2); ABS Eosinophils 0.3 10^3/ul (0-0.6); ABS Lymphocytes 1.5 10^3/ul (1.0-4.8); ABS Monocytes 0.5 10^3/ul (0-0.8); ABS Neutrophils 4.4 10^3/ul (1.5-7.7); Hematocrit 36 % (35-47); Hemoglobin 11.9 g/dL (12.0-16.0); Lymphocyte % 22.1 %; Mean Corpuscular HGB Conc 33 g/dL (31-36); Mean Corpuscular Hemoglobin 31 pg (27-31); Mean Corpuscular Volume 92 fL (80-97); Mean Platelet Volume 8.1 fL (7.4-10.4); Nucleated Red Blood Cells % 0.1; Platelet Count 235 10^3/uL (150-450); Red Cell Distribution Width 16 % (10-15); White Blood Count 6.7 10^3/uL (3.5-10.8)
[2022-05-31] MEDS: Aspirin EC 81 mg TAB.EC (enteric coated) PO SCH (08:47)
[2022-05-31] MEDS ORDERED: Influenza vaccine *QUAD* *2022-23* 0.5 ML SYRINGE IM ONE (09:00)
[2022-05-31 09:16] LABS: Calcium 8.5 mg/dL (8.6-10.3); Magnesium 1.8 mg/dL (1.9-2.7); Potassium 2.9 mmol/L (3.5-5.0); eGFR CKD-EPI 70.2 (>60)
[2022-05-31] MEDS ORDERED: Potassium EFFERVES 25 meq TAB PO ONE (09:29)
[2022-05-31] MEDS ORDERED: Magnesium Sulfate IV 3 GM in NS 0.9% 100 ml BAG 100 ML IVPB ONE (10:00)
[2022-05-31] MEDS ORDERED: Potassium Chlor 20 meq TAB.ER PO ONE (11:00)
[2022-05-31] MEDS: cefTRIAXone 1 gm/50 mL D5W 1 GM/50 ML BAG IV SCH (13:01)
[2022-05-31 15:31] VITALS: BP 120/68
[2022-05-31 15:42] LABS: Calcium 8.9 mg/dL (8.6-10.3); Magnesium 2.4 mg/dL (1.9-2.7); eGFR CKD-EPI 75.6 (>60)
[2022-05-31] MEDS: Enoxaparin 40 MG/0.4 ML SYR SUBCUT SCH (15:44)
== END 2022-05-31 17:35 | disposition home or self-care (01) ==
LOC: ED 20:23 → EDHOLD 20:23 → SUATTDRO 23:57 → EDHOLD 05-30 06:50 → MEDTELE 05-30 07:41
PROVIDERS: ADMIT Internal Medicine; ATTEND Internal Medicine

== ENCOUNTER 2023-06-12 20:54 | Inpatient (IN) ==
[2023-06-12 22:43] LABS: Hematocrit 39.3 % (35-45); Hemoglobin 12.9 g/dL (11.5-14.3); Mean Corpuscular Hgb Conc 32.9 g/dL (31-36); Mean Corpuscular Volume 94.3 fL (80-97); Mean Platelet Volume 8.6 fL (7.5-11.2); Platelet Count 301 10^3/uL (150-450); Red Blood Count 4.17 10^6/uL (3.63-4.92); Red Cell Distribution Width 16.5 % (12-17)
[2023-06-12 22:48] LABS: ABS Basophils 0.1 10^3/uL (0.0-0.1); ABS Lymphocytes 1.3 10^3/uL (1.0-4.8); ABS Monocytes 1.7 10^3/uL (0.0-0.9); ABS Neutrophils 15.8 10^3/uL (1.5-7.6); Eosinophil % 0.2 %; INR 1.08 (0.83-1.13); Lymphocyte % 6.8 %
[2023-06-12 22:56] LABS: Albumin 3.5 g/dL (3.2-5.2); Albumin/Globulin Ratio 1.3 (1-3); C Reactive Protein 70.23 mg/L (<8.01); Calcium 9.6 mg/dL (8.6-10.3); Creatinine, Serum 1.03 mg/dL (0.51-0.95); Globulin 2.6 g/dL (2-4); Potassium 4.1 mmol/L (3.5-5.0); Total Bilirubin 0.9 mg/dL (0.2-1.0); Total Protein 6.1 g/dL (6.4-8.9); eGFR CKD-EPI 54.6 (>60)
[2023-06-13] MEDS ORDERED: Iodixanol (CONTRAST) 320 MG/ML 100 ML SDV IV ONE (00:30)
[2023-06-13 01:11] LABS: High Sensitivity Troponin 1 Hr 12 pg/mL (<15)
[2023-06-13] MEDS ORDERED: cefTRIAXone 1 gm/50 mL D5W 1 GM/50 ML BAG IV ONE ×2 (04:03→05:20)
[2023-06-13 05:04] LABS: Urine Appearance Clear; Urine Bilirubin Negative (Negative); Urine Blood 1+ (Negative); Urine Color Yellow; Urine Glucose Negative (Negative); Urine Ketones Trace (Negative); Urine Nitrite Negative (Negative); Urine Protein 1+(30 mg/dL) (Negative); Urine Specific Gravity 1.014 (1.002-1.030); Urine Urobilinogen Negative (Negative)
[2023-06-13] MEDS: Enoxaparin 40 MG/0.4 ML SYR SUBCUT SCH (05:30)
[2023-06-13 06:01] LABS: Urine Bacteria Absent (Absent); Urine Red Blood Cell Trace(0-2/hpf) (Absent); Urine White Blood Cell Absent (Absent)
[2023-06-13] MEDS: Azithromycin 500 mg/250 ml NS 500 MG/250 ML BAG IVPB SCH (10:29)
[2023-06-13] MEDS ORDERED: Magnesium Hydroxide LIQ 30 ML UDC PO PRN (10:49)
[2023-06-13] MEDS ORDERED: NS 0.9% 1000 ml BAG 1,000 ML IV SCH ×2 (11:00→17:45)
[2023-06-13] MEDS ORDERED: Acetaminophen IV 1 GM/100ML 1,000 MG/100 ML BAG IV PRN (15:22)
[2023-06-13 18:20] LABS: ABS Basophils 0.2 10^3/uL (0.0-0.1); ABS Monocytes 1.2 10^3/uL (0.0-0.9); ABS Neutrophils 10.3 10^3/uL (1.5-7.6); Eosinophil % 0.2 %; Hematocrit 32.3 % (35-45); Hemoglobin 10.8 g/dL (11.5-14.3); Lymphocyte % 7.6 %; Mean Corpuscular Hemoglobin 31.6 pg (27-33); Mean Corpuscular Hgb Conc 33.5 g/dL (31-36); Mean Corpuscular Volume 94.4 fL (80-97); Mean Platelet Volume 8.7 fL (7.5-11.2); Platelet Count 247 10^3/uL (150-450); Red Blood Count 3.43 10^6/uL (3.63-4.92); Red Cell Distribution Width 16.6 % (12-17); White Blood Count 12.8 10^3/uL (3.8-11.8)
[2023-06-13 18:43] LABS: Albumin/Globulin Ratio 1.4 (1-3); Calcium 8.8 mg/dL (8.6-10.3); Creatinine, Serum 0.88 mg/dL (0.51-0.95); Globulin 2.2 g/dL (2-4); Magnesium 1.7 mg/dL (1.9-2.7); Potassium 4.1 mmol/L (3.5-5.0); Total Bilirubin 0.7 mg/dL (0.2-1.0); Total Protein 5.2 g/dL (6.4-8.9)
[2023-06-13] MEDS: Acetaminophen IV 1 GM/100ML 1,000 MG/100 ML BAG IV SCH (21:21)
[2023-06-14 03:04] LABS: Urine Appearance Clear; Urine Bacteria 1+ (Absent); Urine Bilirubin Negative (Negative); Urine Blood Negative (Negative); Urine Color Yellow; Urine Glucose Negative (Negative); Urine Ketones Negative (Negative); Urine Nitrite Negative (Negative); Urine Protein Negative (Negative); Urine Red Blood Cell Trace(0-2/hpf) (Absent); Urine Squamous Epithelial Cell Present (Absent); Urine Urobilinogen Negative (Negative); Urine White Blood Cell Trace(0-5/hpf) (Absent)
[2023-06-14] MEDS ORDERED: cefTRIAXone 1 gm/50 mL D5W 1 GM/50 ML BAG IV ONE (04:52)
[2023-06-14] MEDS: Acetaminophen IV 1 GM/100ML 1,000 MG/100 ML BAG IV SCH ×3 (05:09→20:41)
[2023-06-14] MEDS: Enoxaparin 40 MG/0.4 ML SYR SUBCUT SCH (06:00)
[2023-06-14 06:54] LABS: Hematocrit 32.4 % (35-45); Hemoglobin 10.7 g/dL (11.5-14.3); Mean Corpuscular Hemoglobin 31.5 pg (27-33); Mean Corpuscular Hgb Conc 32.9 g/dL (31-36); Mean Platelet Volume 8.7 fL (7.5-11.2); Platelet Count 228 10^3/uL (150-450); Red Blood Count 3.38 10^6/uL (3.63-4.92); Red Cell Distribution Width 16.1 % (12-17); White Blood Count 10.8 10^3/uL (3.8-11.8)
[2023-06-14 08:31] LABS: Anion Gap 9 mmol/L (2-16); Blood Urea Nitrogen 20 mg/dL (6-24); CO2 Carbon Dioxide 25 mmol/L (22-32); Calcium 8.5 mg/dL (8.6-10.3); Chloride 105 mmol/L (101-111); Creatinine, Serum 0.76 mg/dL (0.51-0.95); Glucose 100 mg/dL (70-100); Magnesium 1.6 mg/dL (1.9-2.7); Sodium 139 mmol/L (135-145); eGFR CKD-EPI 78.7 (>60)
[2023-06-14] MEDS ORDERED: Magnesium Sulfate 2 gm BAG 2 GM/50 ML BAG IVPB ONE (09:23)
[2023-06-14] MEDS: Azithromycin 500 mg/250 ml NS 500 MG/250 ML BAG IVPB SCH (10:15)
[2023-06-14] MEDS ORDERED: Potassium Chloride LIQUID 20 MEQ/15 ML LIQUID PO ONE (14:13)
[2023-06-15] MEDS: Acetaminophen IV 1 GM/100ML 1,000 MG/100 ML BAG IV SCH ×3 (05:52→20:10)
[2023-06-15] MEDS: Enoxaparin 40 MG/0.4 ML SYR SUBCUT SCH (05:53)
[2023-06-15] MEDS: Azithromycin 500 mg/250 ml NS 500 MG/250 ML BAG IVPB SCH (07:57)
[2023-06-16 00:18] LABS: Anaplasma phagocytophilum Negative (Negative); B. miyamotoi PCR, B Negative (Negative); Babesia divergens/MO-1 Negative (Negative); Babesia ducani Negative (Negative); Ehrlichia chaffeensis Negative (Negative); Ehrlichia ewingii/canis Negative (Negative); Ehrlichia muris eauclairensis Negative (Negative)
[2023-06-16] MEDS: Enoxaparin 40 MG/0.4 ML SYR SUBCUT SCH ×2 (05:06→05:10)
[2023-06-16 06:31] LABS: ABS Basophils 0.1 10^3/uL (0.0-0.1); ABS Eosinophils 0.2 10^3/uL (0.0-0.5); ABS Lymphocytes 1.6 10^3/uL (1.0-4.8); ABS Monocytes 0.6 10^3/uL (0.0-0.9); ABS Neutrophils 3.8 10^3/uL (1.5-7.6); Eosinophil % 2.5 %; Hematocrit 34.1 % (35-45); Hemoglobin 11.3 g/dL (11.5-14.3); Lymphocyte % 25.6 %; Mean Corpuscular Hemoglobin 31.4 pg (27-33); Mean Corpuscular Hgb Conc 33.1 g/dL (31-36); Mean Corpuscular Volume 94.9 fL (80-97); Platelet Count 314 10^3/uL (150-450); Red Blood Count 3.59 10^6/uL (3.63-4.92); Red Cell Distribution Width 15.7 % (12-17); White Blood Count 6.3 10^3/uL (3.8-11.8)
[2023-06-16 06:49] LABS: Calcium 8.8 mg/dL (8.6-10.3); Creatinine, Serum 0.77 mg/dL (0.51-0.95); Magnesium 1.8 mg/dL (1.9-2.7); Potassium 3.5 mmol/L (3.5-5.0); eGFR CKD-EPI 77.4 (>60)
[2023-06-16] MEDS ORDERED: Potassium Chlor 20 meq TAB.ER PO ONE (07:45)
[2023-06-16] MEDS ORDERED: Magnesium Sulfate 2 gm BAG 2 GM/50 ML BAG IVPB ONE (07:45)
[2023-06-16] MEDS ORDERED: Potassium Chloride LIQUID 20 MEQ/15 ML LIQUID PO ONE (10:00)
[2023-06-16] MEDS: hydrOXYzine LIQ ORALSYR 2 MG/ML PO PRN ×2 (14:37→21:20)
[2023-06-17] MEDS: hydrOXYzine LIQ ORALSYR 2 MG/ML PO PRN ×2 (04:08→10:26)
[2023-06-17 06:13] LABS: Hematocrit 34.7 % (35-45); Hemoglobin 11.6 g/dL (11.5-14.3); Mean Corpuscular Hemoglobin 31.6 pg (27-33); Mean Corpuscular Hgb Conc 33.5 g/dL (31-36); Mean Corpuscular Volume 94.4 fL (80-97); Mean Platelet Volume 8.1 fL (7.5-11.2); Platelet Count 312 10^3/uL (150-450); Red Blood Count 3.68 10^6/uL (3.63-4.92); Red Cell Distribution Width 16.3 % (12-17); White Blood Count 6.6 10^3/uL (3.8-11.8)
[2023-06-17] MEDS: Enoxaparin 40 MG/0.4 ML SYR SUBCUT SCH (06:27)
[2023-06-17 06:38] LABS: Calcium 9.3 mg/dL (8.6-10.3); Creatinine, Serum 0.83 mg/dL (0.51-0.95); Potassium 3.7 mmol/L (3.5-5.0); eGFR CKD-EPI 70.8 (>60)
[2023-06-17 13:47] VITALS: BP 101/68
== END 2023-06-17 16:17 | DRG 194 ==
LOC: ED 20:54 → EDHOLD 20:54 → SUATTDRO 06-13 04:41 → MED 06-13 07:01
PROVIDERS: ADMIT Internal Medicine; ATTEND Hospitalist